=== PATIENT | male | born 1945 | race Caucasian/White ===

== ENCOUNTER 2017-08-26 09:05 | Emergency (ER) | payer MEDICARE ==
--- NOTE | 2017-08-26 09:19 | UC ---
Respiratory Complaint HPI - HPI Summary HPI Summary: 71 y/o male presents to the urgent care c/o chest congestion with productive cough with green secretions for the past 2 weeks. Pt states cough is associated with SOB and wheezing, using the albuterol inhaler morefor the past 2 days. Mild nasal congestion with yellowish nasal discharge. SOB is wore exertion. Pt has been taking a OTC cough syrup to alleviate cough. Pt had open heart surgery in 2014. He also has PMHX of COPD, HTN, Dyslipidemia. Pt denies fever, chest pain, abdominal pain, N/V/D. - History of Current Complaint Stated Complaint: COUGH Time Seen by Provider: 08/26/17 09:18 Hx Obtained From: Patient Onset/Duration: Gradual Onset, Lasting Weeks - 2 weeks Timing: Constant Severity Initially: Mild Severity Currently: Moderate Pain Intensity: 0 Pain Scale Used: 0-10 Numeric Character: Cough: Productive, Sputum Description: - green Aggravating Factors: Deep Breaths, Recumbent Position Alleviating Factors: Bronchodilator Associated Signs And Symptoms: Positive: Dyspnea, URI, Nasal Congestion. Negative: Fever, Pleuritic Chest Pain, Wheezing, Calf Pain - Risk Factors Pulmonary Embolism Risk Factors: Negative Cardiac Risk Factors: Negative Pseudomonas Risk Factors: Negative Tuberculosis Risk Factors: Negative - Allergies/Home Medications Allergies/Adverse Reactions: Allergies Allergy/AdvReac Type Severity Reaction Status Date / Time No Known Allergies Allergy Verified 08/26/17 09:24 PMH/Surg Hx/FS Hx/Imm Hx Previously Healthy: Yes Endocrine History: Hypothyroidism, Dyslipidemia Cardiovascular History: Cardiac Disease, Hypertension Other History Of: Negative For: Anticoagulant Therapy - Surgical History Surgical History: Yes Surgery Procedure, Year, and Place: open heart - Family History Known Family History: Positive: Cardiac Disease, Hypertension - Social History Occupation: Retired Alcohol Use: None Substance Use Type: None Smoking Status (MU): Former Smoker Type: Cigarettes, Cigars Amount Used/How Often: 5 cigars/day Length of Time of Smoking/Using Tobacco: On and Off for 32 Years Have You Smoked in the Last Year: No When Did the Patient Quit Smoking/Using Tobacco: 09/26/90 Household Exposure Type: Cigarettes - Immunization History Most Recent Influenza Vaccination: 2012 Most Recent Tetanus Shot: 2005 Most Recent Pneumonia Vaccination: never Review of Systems Constitutional: Negative Skin: Negative Eyes: Negative ENT: Nasal Discharge Respiratory: Shortness Of Breath, Cough - productive with green phlegm Cardiovascular: Negative Gastrointestinal: Negative Genitourinary: Negative Motor: Negative Neurovascular: Negative Musculoskeletal: Negative Neurological: Negative Psychological: Negative Is Patient Immunocompromised?: No All Other Systems Reviewed And Are Negative: Yes Physical Exam Triage Information Reviewed: Yes - Additional Comments Vital Signs Reviewed: Yes General: well developed, well nourished obese male sitting in the examining table w/o any apparent distress Eyes: Positive: Conjunctiva Clear - PERRLA, EOMI, fundi grossly normal ENT: Positive: Normal ENT inspection, Hearing grossly normal, Pharynx normal, Nasal congestion - edematous and erythematous nasal mucosa, Nasal drainage - yellowish drainage, TMs normal. Negative: Tonsillar swelling, Tonsillar exudate Neck: Positive: Supple, Nontender, No Lymphadenopathy Respiratory: no orthopnea or dyspnea. Able to speak in full sentences, no retractions or accessory muscle use, no tripod position, stridor, or head bobbing. B/L lungs with scattered crackles and rhonchi, audible gurgles, decrease breath sounds. Cardiovascular: Positive: RRR, No Murmur, Pulses Normal, Brisk Capillary Refill Abdomen Description: Positive: Nontender, No Organomegaly, Soft. Negative: CVA Tenderness (R), CVA Tenderness (L) Bowel Sounds: Positive: Present Musculoskeletal Exam: Normal Musculoskeletal: Positive: Strength Intact, ROM Intact, No Edema Neurological Exam: Normal Psychological Exam: Normal Skin Exam: Normal Respiratory Course/Dx - Course Course Of Treatment: 71 y/o male presents to the urgent care c/o chest congestion with productive cough with green secretions for the past 2 weeks. Pt states cough is associated with SOB and wheezing, using the albuterol inhaler morefor the past 2 days. Mild nasal congestion with yellowish nasal discharge. SOB is wore exertion. Pt has been taking a OTC cough syrup to alleviate cough. Pt had open heart surgery in 2015. He also has PMHX of COPD, HTN, Dyslipidemia. Pt denies fever, chest pain, abdominal pain, N/V/D. Hx obtained. Pt with B/L lung with moderate crackles and audible gurgles, and decrease breath sounds on examination. O2Sat: 90%. Chest X-ray ordered to r/o pheumonia or CHF exacerbation. Impression: Left lower lung with consolidtion and small pleural effusion. However further images should be ordered and blood work in order to differentiate between acute CHF exacerbation or pneumonia. I presented case to Dr Nunez. she recommended Pt to go to the ER. I discussed chest X-ray findings with the patient. Patient was instructed to go to the ER for further evaluation and treatment to r/o CHF acute exacerbation. Pt Understood and agreed. stated she will take her to the [facility]. I spoke to addi Burkett ant [facility] and discussed Pt's case with her. She accepted the PT. Pt left the clinic ambulating and hemodyncamically stable, A& OX3. - Differential Dx/Diagnosis Differential Diagnosis/HQI/PQRI: Asthma, Bronchitis, Exacerbation Of COPD, Lower Resp Infection, Other - pneumonia, CHF, OHS Provider Diagnoses: 1- persitent cough with SOB r/o pneumonia. 2- Left lower lung with Pleural effusion r/o CHF - Physician Notification/Consults Discussed Patient Care With: Sonal Nunez - DR Nunez agreed with Pt 's plan of care Discharge - Discharge Plan Condition: Stable Disposition: [facility] Patient Education Materials: Heart Failure (ED), Pneumonia (ED) Referrals: Sumaya Gallo MD [Primary Care Provider] - Additional Instructions: I highly recommend you to go to the [place] ER for further evaluation and treatment to r/o CHF, pneumonia or other cardiology pathology. The risks of not goint to the ER can be ND or
[2017-08-26 09:31] VITALS: BP 148/58
--- NOTE | 2017-08-26 10:15 | RAD ---
HISTORY: Persistent cough, shortness of breath COMPARISONS: June 28, 2016 VIEWS: 4: Frontal dual-energy and lateral views of the chest. FINDINGS: CARDIOMEDIASTINAL SILHOUETTE: The cardiomediastinal silhouette is normal. A prosthesis is noted overlying the atrial appendage. A prosthetic heart valve is noted. MANUEL: The manuel are normal. PLEURA: There is blunting of left costophrenic angle. LUNG PARENCHYMA: There is patchy alveolar opacification of the left lung base ABDOMEN: The upper abdomen is clear. There is no subphrenic gas. BONES AND SOFT TISSUES: The patient is status post median sternotomy. OTHER: None. IMPRESSION: LEFT LOWER LUNG CONSOLIDATION WITH A SMALL LEFT PLEURAL EFFUSION. RECOMMEND FOLLOW-UP UNTIL RESOLUTION TO EXCLUDE UNDERLYING PULMONARY PARENCHYMAL PATHOLOGY.
== END 2017-08-26 10:43 | disposition short-term general hospital (02) ==
LOC: UCCORT 09:05
DX: R05 Cough (principal); R06.02 Shortness of breath; J90 Pleural effusion, not elsewhere classified; E03.9 Hypothyroidism, unspecified; E78.5 Hyperlipidemia, unspecified; J44.9 Chronic obstructive pulmonary disease, unspecified; I10 Essential (primary) hypertension; Z87.891 Personal history of nicotine dependence
CPT/HCPCS: 71020; 99212; G0463

== ENCOUNTER 2017-08-26 11:36 | Emergency (ER) | payer MEDICARE ==
[2017-08-26] MEDS ORDERED: cefTRIAXone(*) 1 GM in NS 0.9% 50 ML* 50 ML IVPB ONE (12:26)
[2017-08-26] MEDS ORDERED: Levofloxacin 750 MG IVPREMIX(* 750 MG/150 ML BAG IVPB ONE (12:26)
[2017-08-26 12:34] LABS: Hematocrit 42 % (42-52); Hemoglobin 13.5 g/dl (14.0-18.0); Mean Corpuscular HGB Conc 32 g/dl (31-36); Mean Corpuscular Hemoglobin 30 pg (27-31); Mean Corpuscular Volume 92 fL (80-94); Mean Platelet Volume 9 um3 (7.4-10.4); Red Blood Count 4.55 10^6/ul (4.0-5.4); Red Cell Distribution Width 17 % (10.5-15); White Blood Count 7.7 10^3/ul (3.5-10.8)
[2017-08-26 12:44] LABS: Albumin 4.4 g/dL (3.2-5.2); BUN/Creatinine Ratio 16.7 (8-20); Calcium 10.3 mg/dL (8.6-10.3); EGFR African American 106.4 (>60); EGFR Non-African American 82.7 (>60); Globulin 2.6 g/dL (2-4); Total Bilirubin 0.7 mg/dL (0.2-1.0)
[2017-08-26] MEDS ORDERED: Albuterol 2.5 MG/3 ML NEB.SOL* (0.083%) INH ONE (13:00)
[2017-08-26] MEDS ORDERED: methylPREDNISolone 125 MG* 2 ML VIAL IV ONE (13:04)
[2017-08-26 13:32] LABS: C Reactive Protein 49.18 mg/L (< 5.00)
--- NOTE | 2017-08-26 13:54 | PN ---
Hospitalist Progress Note Brief Hospitalist Consult: Full dictation to follow. In brief, Pt is a 71 y/o M hx of tobacco abuse, presumed COPD, JENNIFER, HTN, HLD here with 2-3 day hx of cough found to have left lower lobe consolidation on CXR. Denies fevers, chills. Went to convenient care to get antibiotics. Denies SOB and states he is always SOB with ambulation. Vital Signs Temp Pulse Resp BP Pulse Ox 98.4 F 60 18 160/76 93 08/26/17 11:41 08/26/17 13:38 08/26/17 13:38 08/26/17 11:41 08/26/17 13:38 Lungs: Coarse with audible exp wheeze Heart; RRR Abd: soft, NT, ND Ext: 1-2+ edema, BAIN Neuro: AOx3 A/P LLL consolidation/PNA with underlying COPD Patient satting 93 % on room air (suspect baseline) without tachycardia/ leukocytosis Pt stable to be discharged home with the following regimen Zithromax Short prednisone taper Jessica Plunkett (CM will arrange nebulizer) PRN Albuterol. D/w patient with and they are in agreement. F/u with PCP in 5-7 days. D/W Dr Mari who is in agreement with the plan stated above.
--- NOTE | 2017-08-26 14:48 | ED ---
Jonas Stanford Nilda, scribed for Pilo Cox MD on 08/26/17 at 1236 . Respiratory - HPI Summary HPI Summary: This patient is a 71 year old M presenting from [facility] to [facility] accompanied by with a chief complaint of constant productive cough (yellow) for the past 1.5 weeks that worsened 2-3 days ago. The patient rates the pain 0/10 in severity. Symptoms aggravated by exertion and alleviated by nothing. Patient reports MARION, but denies fever, chills, and CP. He is not on blood thinners. He states he has "fluid in his lungs". PMHx includes HTN and HLD. No PMHx PNA. PSHx aortic valve replacement. - History of Current Complaint Chief Complaint: EDShortnessOfBreath Stated Complaint: POSSBILE PNEUMONIA COMING FROM Time Seen by Provider: 08/26/17 12:13 Hx Obtained From: Patient Onset/Duration: Gradual Onset, Lasting Weeks, Still Present Current Severity: Moderate Pain Intensity: 0 Character: Cough (Productive), Dyspnea on Exertion Sputum Color: Yellow Aggravating Factor(s): Exertion Alleviating Factor(s): Nothing - Allergy/Home Medications Allergies/Adverse Reactions: Allergies Allergy/AdvReac Type Severity Reaction Status Date / Time No Known Allergies Allergy Verified 08/26/17 09:24 Home Medications: Home Medications Diltiazem CD CAP* [Cardizem CD CAP*] 240 mg PO QAM 08/26/17 [History Confirmed 08/26/17] Levothyroxine TAB* [Synthroid 88 MCG TAB*] 88 mcg PO QAM 08/26/17 [History Confirmed 08/26/17] Lisinopril TAB* [Prinivil TAB 10 MG*] 20 mg PO QAM 08/26/17 [History Confirmed 08/26/17] PMH/Surg Hx/FS Hx/Imm Hx Endocrine/Hematology History: Reports: Hx Thyroid Disease Denies: Hx Anticoagulant Therapy, Hx Blood Disorders, Hx Anemia, Hx Unexplained Bleeding Cardiovascular History: Reports: Hx Hypercholesterolemia, Hx Hypertension, Other Cardiovascular Problems/Disorders - AORTIC VALVE REPLACEMENT AT [facility] LATE 2014 Denies: Hx Angina, Hx Angioplasty, Hx Auto Implanted Cardiovert Defib, Hx Cardiomegaly, Hx Congestive Heart Failure, Hx Coronary Artery Disease, Hx Deep Vein Thrombosis, Hx Pacemaker/ICD, Hx Rheumatic Fever, Hx Syncope Respiratory History: Reports: Hx Sleep Apnea History: Reports: Hx Benign Prostatic Hyperplasia Denies: Hx Acute Renal Failure, Hx Chronic Renal Failure, Hx Dialysis, Hx Kidney Infection, Hx Kidney Stones Sensory History: Reports: Hx Cataracts - surgery on right eye, Hx Contacts or Glasses, Hx Hearing Problem - little MILLE LACS Denies: Hx Glaucoma, Hx Macular Degeneration, Hx Hearing Aid Opthamlomology History: Reports: Hx Cataracts - surgery on right eye, Hx Contacts or Glasses Denies: Hx Glaucoma, Hx Macular Degeneration - Cancer History Cancer Type, Location and Year: 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 Hx Chemotherapy: No Hx Radiation Therapy: Yes - Surgical History Surgery Procedure, Year, and Place: open heart Hx Anesthesia Reactions: No Infectious Disease History: No Infectious Disease History: Denies: Traveled Outside the [place] in Last 30 Days - Family History Known Family History: Positive: Cardiac Disease, Hypertension - Social History Lives: With Family Alcohol Use: Occasionally Substance Use Type: Reports: None Smoking Status (MU): Former Smoker Type: Cigarettes, Cigars Amount Used/How Often: 5 cigars/day Length of Time of Smoking/Using Tobacco: On and Off for 32 Years Have You Smoked in the Last Year: No Review of Systems Negative: Fever, Chills Negative: Chest Pain Positive: Shortness Of Breath - MARION, Cough - productive, yellow, Other - "fluid in lungs" All Other Systems Reviewed And Are Negative: Yes Physical Exam Vital Signs On Initial Exam: Initial Vitals Temp Pulse Resp BP Pulse Ox 98.4 F 67 22 160/76 97 08/26/17 11:41 08/26/17 11:41 08/26/17 11:41 08/26/17 11:41 08/26/17 11:41 - [place] Coma Scale Coma Scale Total: 15 Diagnostics - Vital Signs Vital Signs Temp Pulse Resp BP Pulse Ox 08/26/17 12:08 65 94 08/26/17 11:41 98.4 F 67 22 160/76 97 - Laboratory Lab Results: Lab Results 08/26/17 08/26/17 08/26/17 Range/Units 11:56 11:56 11:56 WBC 7.7 (3.5-10.8) 10^3/ul RBC 4.55 (4.0-5.4) 10^6/ul Hgb 13.5 L (14.0-18.0) g/dl Hct 42 (42-52) % MCV 92 (80-94) fL MCH 30 (27-31) pg MCHC 32 (31-36) g/dl RDW 17 H (10.5-15) % Plt Count 164 (150-450) 10^3/ul MPV 9 (7.4-10.4) um3 Neut % (Auto) 54.5 (38-83) % Lymph % (Auto) 18.8 L (25-47) % Scott % (Auto) 18.6 H (1-9) % Eos % (Auto) 6.8 H (0-6) % Baso % (Auto) 1.3 (0-2) % Absolute Neuts (auto) 4.2 (1.5-7.7) 10^3/ul Absolute Lymphs (auto) 1.4 (1.0-4.8) 10^3/ul Absolute Monos (auto) 1.4 H (0-0.8) 10^3/ul Absolute Eos (auto) 0.5 (0-0.6) 10^3/ul Absolute Basos (auto) 0.1 (0-0.2) 10^3/ul Absolute Nucleated RBC 0 10^3/ul Nucleated RBC % 0 Sodium 140 (133-145) mmol/L Potassium 4.0 (3.5-5.0) mmol/L Chloride 104 (101-111) mmol/L Carbon Dioxide 31 (22-32) mmol/L Anion Gap 5 (2-11) mmol/L BUN 15 (6-24) mg/dL Creatinine 0.90 (0.67-1.17) mg/dL Est GFR ( Amer) 106.4 (>60) Est GFR (Non-Af Amer) 82.7 (>60) BUN/Creatinine Ratio 16.7 (8-20) Glucose 94 (70-100) mg/dL Calcium 10.3 (8.6-10.3) mg/dL Total Bilirubin 0.70 (0.2-1.0) mg/dL AST 18 (13-39) U/L ALT 20 (7-52) U/L Alkaline Phosphatase 116 H (34-104) U/L C-Reactive Protein 49.18 H (< 5.00) mg/L B-Natriuretic Peptide 251 H ( - 100) pg/mL Total Protein 7.0 (6.4-8.9) g/dL Albumin 4.4 (3.2-5.2) g/dL Globulin 2.6 (2-4) g/dL Albumin/Globulin Ratio 1.7 (1-3) Result Diagrams: 08/26/17 11:56 08/26/17 11:56 Lab Statement: Any lab studies that have been ordered have been reviewed, and results considered in the medical decision making process. - EKG 1245 Cardiac Rate: NL EKG Rhythm: Sinus Rhythm - 62 bpm EKG Interpretation: NJ 128, QRS 109, No STEMI Disposition - Course Course Of Treatment: This patient is a 71 year old M presenting from [facility] to [facility] accompanied by with a chief complaint of constant productive cough ( yellow) for the past 1.5 weeks that worsened 2-3 days ago. The patient rates the pain 0/10 in severity. Symptoms aggravated by exertion and alleviated by nothing. Patient reports MARION, but denies fever, chills, and CP. He is not on blood thinners. He states he has fluid in his lungs. PMHx includes HTN and HLD. No PMHx PNA. PSHx aortic valve replacement. The patient states he feels totally comfortable with going home on the home treatment plan the hospitalists have organized, and he does not want to stay here and be admitted. His sat is 92-93 on room air. He has clearer lungs sounds after his neb. Discharge plan per hospitalists. An EKG reveals NSR 62 bpm, NJ 128, QRS 109, No STEMI. [12:59 ] consult with Dr. Mari (hospitalist) who will see pt in ED. [13:38] consult with Dr. Mari (hospitalist) who recommends that the patient be discharged and agrees to place prescription for antibiotics and breathing treatment. ED physcician administered albuterol, levofloxacin, methylprednisone, and ceftriaxone inhalation treatments in ED. - Diagnoses Provider Diagnoses: Pneumonia, Pleural effusion - Physician Notifications Discussed Care Of Patient With: Adeola Mari - Hospitalist Time Discussed With Above Provider: 12:59 Instructed by Provider To: MD Will See In ED Discharge - Discharge Plan Condition: Good Disposition: HOME Prescriptions: Albuterol/Ipratropium NEB.GUNNAR* [Duoneb (Albuterol 2.5 MG/Ipratropium 0.5 MG)] 1 neb INH Q4HR #30 neb.gunnar Amoxicillin/Clavulanate TAB* [Augmentin TAB 875*] 875 mg PO BID #20 tab Azithromycin TAB* [Zithromax TAB (Z-LONA) 250 mg #6 tabs] 2 tab PO .TODAY, THEN 1 DAILY #1 lona Mometasone/Formoter 200/5 MDI* [Dulera 200/5 MDI*] 1 puff INH BID #1 mdi predniSONE TAB* [Deltasone TAB*] 20 mg PO DAILY #14 tab Patient Education Materials: Bacterial Pneumonia (ED), COPD (Chronic Obstructive Pulmonary Disease) (ED), Hypertension (ED) Referrals: Sumaya Gallo MD [Primary Care Provider] - 2 Days The documentation as recorded by the Jonas smith Nilda accurately reflects the service I personally performed and the decisions made by , Pilo Cox MD.
[2017-08-26 15:53] VITALS: BP 191/74
--- NOTE | 2017-08-26 18:44 | CONS ---
CONSULTATION REPORT: * ADDENDUM: Ha Raman is a 71-year-old male with BMI of 42, who presented to [facility] complaining of cough and "having a cold." His x-ray shows chronic left-sided pleural effusion with questionable infiltrate at left base. The patient had a CT of the chest performed in the beginning of August of 2017 , which was just less than 2 weeks ago, which noted the same pleural effusion and compared, is unchanged with a CT from [address]. [address]. Cox asked us to evaluate the patient for potential admission. When approached, the patient refused to be admitted. He has audible wheezes. He likely has bronchitis. Recommending treatment with inhaled steroid, beta ___ __ combination as well as nebulizers and azithromycin. Those were recommended by Debra Velasquez NP, with outpatient consultation with which I agree. [id number]/[facility] #: [id number] CHRISTIAN
--- NOTE | 2017-08-26 19:51 | CONS ---
ATTENDING PHYSICIAN ADDENDUM NOW INCLUDED ON THIS REPORT CC: Sumaya Gallo MD* CONSULTATION REPORT: DATE OF CONSULTATION: 08/26/17 - EMERGENCY DEPT PRIMARY CARE PROVIDER: Sumaya Gallo MD. REQUESTING PHYSICIAN: Pilo Cox MD. ATTENDING PHYSICIAN: Adeola Mari MD * (DICTATED BY BRAYDON OLSON) CHIEF COMPLAINT: Cough. HISTORY OF PRESENT ILLNESS: The patient is a 71-year-old male with a past medical history significant for obstructive sleep apnea, morbid obesity, hypertension who initially presented to [facility] care with a complaint of cough for the past 1-1/2 to 2 weeks. The patient denies any fever or chills. The patient states he is always short of breath and his shortness of breath has not gotten any worse. The patient was traveling to [place] approximately 2 weeks ago. Today, the patient presented to [facility] as he figured he would "just stop by to pickling grader some antibiotics." At [facility], he had a chest x-ray that revealed left lower lobe consolidation and was sent to [facility] Emergency Room for further evaluation and possible admission. In the emergency room, the patient was satting between 93% and 97% on room air. He was given a dose of ceftriaxone and Levaquin as well as a nebulizer. Hospitalists were asked to evaluate this patient for admission. PAST MEDICAL HISTORY: 1. Hypertension. 2. Prostate cancer. 3. Obstructive sleep apnea, on CPAP with 2 L oxygen at night. 4. Hyperlipidemia. PAST SURGICAL HISTORY: Aortic valve replacement in 2014. HOME MEDICATIONS: Include: 1. Synthroid 88 mcg oral daily. 2. Lisinopril 20 mg oral daily. 3. Cardizem 240 mg oral daily. 4. Albuterol inhaler. ALLERGIES: None. FAMILY HISTORY: Reviewed and noncontributory. SOCIAL HISTORY: The patient quit smoking 30 years ago. He smoked 2 to 3 cigars a day. He occasionally drinks alcohol. He is not working. His , Michelle Raman, would be the surrogate decision maker in the event the patient cannot make decisions for himself. REVIEW OF SYSTEMS: I performed a 14-point review of systems; all the pertinent positives and negatives are mentioned in the history of present illness. The remaining review of systems are negative. PHYSICAL EXAM: Vital Signs: Temperature 98.4, heart rate 60, respiratory rate 18, oxygen saturation 92%, blood pressure 160/76. Appearance: The patient is alert, appeared to be in no apparent distress. Head, Eyes, Ears, Nose and Throat: Normocephalic/atraumatic. Pupils were equal and reactive to light. Extraocular movements were intact. Neck: Supple. There was no lymphadenopathy noted. Respiratory: There was no accessory muscle use. Lungs were coarse bilaterally with slight expiratory wheeze. Cardiovascular: S1 and S2 were crisp. There were no murmurs, rubs, or gallops. Abdomen was soft, nontender and nondistended. There were bowel sounds x4. Extremities: There was 1 to 2+ lower extremity edema. DP and PT pulses were 2+ and symmetric. Musculoskeletal: There was no clubbing or cyanosis noted. The patient exhibited equal strength in all extremities. Skin: There were no rashes or abnormalities seen. Neuro: Cranial nerves II through XII are intact. The patient moves all extremities. Lower extremities were intact to light touch. Psych: The patient is alert and oriented x3. LABORATORY DATA: Sodium 140, potassium 4, chloride 104, CO2 31, BUN 15, creatinine 0.9, glucose 94. Liver function test is within normal limits. Alk phos 116, CRP 49.8, BNP 251. White blood cell count 7.7, hemoglobin 13.5, hematocrit 42, platelet count 164,000. IMAGING: Chest x-ray from today at [facility] reads left lower lung consolidation with small left lower lobe effusion. Recommend followup until resolution to exclude underlying pulmonary parenchymal pathology. The patient also had a chest CT from 08/15/17 that showed a chronic small left pleural effusion. EKG from this morning showed normal sinus rhythm with a rate of 62. IMPRESSION: This is a 71-year-old male with past medical history significant for prior tobacco abuse, hypertension, morbid obesity, hyperlipidemia, who presented to [facility] with a complaint of cough, found to have left lower lobe consolidation consistent with pneumonia with underlying chronic obstructive pulmonary disease. ASSESSMENT AND PLAN: 1. Left lower lobe consolidation with underlying chronic obstructive pulmonary disease. Although the patient does not have a diagnosis of chronic obstructive pulmonary disease given his history of tobacco abuse, he likely warrants the diagnosis. On top of this, it is clear that the patient has left lower lobe consolidation typical of early pneumonia or bronchitis. The patient is currently receiving ceftriaxone and Levaquin in the emergency room. The patient is satting 90% on room air and is not tachycardic and does not have a white count. Hence, at this time, he does not meet criteria for admission. He will be discharged with a course of Zithromax as well as a short prednisone taper. In addition, the patient will be set up with a nebulizer for breathing treatments and Dulera. He currently has an albuterol inhaler at home and should continue to use this as a rescue inhaler. The patient was instructed to follow up with his primary care provider, Dr. Gallo, within 5 to 7 days. In addition , it is likely that the patient may be need an evaluation by a gas distribution and emergency clerk. 2. For his obstructive sleep apnea, the patient can continue CPAP at home. 3. Hypertension. Blood pressure is controlled on his current regimen of Cardizem and lisinopril. 4. Hypothyroidism. Continue Synthroid. These recommendations were conveyed in detail to the emergency room physician who will be discharging the patient from the emergency room today. This is a summarized report of the complex medical history. Please refer to medical record for further detail. TIME SPENT: Time for this consultation was 60 minutes, and 30 minutes were spent with the patient discussing medications, medical history and events leading up to his arrival in the emergency room. Case was discussed with the attending physician, Dr. Mari and she is in agreement with the plan outlined above. Reveiwed by DEBRA VELASQUEZ NP 08/27/2017 1969 ADDENDUM: Ha Raman is a 71-year-old male with BMI of 42, who presented to [facility] complaining of cough and "having a cold." His x-ray shows chronic left-sided pleural effusion with questionable infiltrate at left base. The patient had a CT of the chest performed in the beginning of August of 2017 , which was just less than 2 weeks ago, which noted the same pleural effusion and compared, is unchanged with a CT from 2016. Dr. Cox asked us to evaluate the patient for potential admission. When approached, the patient refused to be admitted. He has audible wheezes. He likely has bronchitis. Recommending treatment with inhaled steroid, beta ___ __ combination as well as nebulizers and azithromycin. Those were recommended by Debra Velasquez NP, with outpatient consultation with which I agree. ADEOLA MARI, [place] [id number]/CPS #: [id number]/CPS #: [id number] [facility]
== END 2017-08-26 15:55 | disposition home or self-care (01) ==
LOC: ED 11:36
DX: J18.9 Pneumonia, unspecified organism (principal); J90 Pleural effusion, not elsewhere classified; R06.02 Shortness of breath; R05 Cough; Z87.891 Personal history of nicotine dependence
CPT/HCPCS: 36415; 80053; 83880; 84145; 85025; 86140; 87040; 93005; 94640; 99283; J0696; J2930

== ENCOUNTER 2019-04-12 18:08 | Emergency (ER) | payer MEDICARE ==
--- NOTE | 2019-04-12 18:39 | ED ---
Shortness of Breath - HPI Summary HPI Summary: 73 yr old male with the complaint of shortness of breath and coughing. Onset of symptoms about a week ago, and progressively worse. The patient has no chest pain. Denies fever. He has had decreased tolerance of walking. He has been wearing oxygen all day, which he usually only wears at night. He denies increased swelling in the legs. He has no other complaints. - History of Current Complaint Time Seen by Provider: 04/12/19 18:20 - Allergy/Home Medications Allergies/Adverse Reactions: Allergies Allergy/AdvReac Type Severity Reaction Status Date / Time No Known Allergies Allergy Verified 04/12/19 18:35 Home Medications: Home Medications Furosemide TAB* [Lasix TAB*] 40 mg PO DAILY 04/12/19 [History Confirmed 04/12/19 ] Metoprolol Tartrate TAB* [Lopressor TAB*] 25 mg PO DAILY 04/12/19 [History Confirmed 04/12/19] Warfarin TAB(*) [Coumadin TAB(*)] 5 mg PO DAILY 04/12/19 [History Confirmed ] PMH/Surg Hx/FS Hx/Imm Hx Endocrine/Hematology History: Reports: Hx Thyroid Disease Denies: Hx Anticoagulant Therapy, Hx Blood Disorders, Hx Anemia, Hx Unexplained Bleeding Cardiovascular History: Reports: Hx Hypercholesterolemia, Hx Hypertension, Other Cardiovascular Problems/Disorders - AORTIC VALVE REPLACEMENT AT [facility] LATE 2014 Denies: Hx Angina, Hx Angioplasty, Hx Auto Implanted Cardiovert Defib, Hx Cardiomegaly, Hx Congestive Heart Failure, Hx Coronary Artery Disease, Hx Deep Vein Thrombosis, Hx Pacemaker/ICD, Hx Rheumatic Fever, Hx Syncope Respiratory History: Reports: Hx Chronic Obstructive Pulmonary Disease (COPD) - undiagnosed, Hx Sleep Apnea History: Reports: Hx Benign Prostatic Hyperplasia Denies: Hx Acute Renal Failure, Hx Chronic Renal Failure, Hx Dialysis, Hx Kidney Infection, Hx Kidney Stones Sensory History: Reports: Hx Cataracts - surgery on right eye, Hx Contacts or Glasses, Hx Hearing Problem - little [place] Denies: Hx Glaucoma, Hx Macular Degeneration, Hx Hearing Aid Opthamlomology History: Reports: Hx Cataracts - surgery on right eye, Hx Contacts or Glasses Denies: Hx Glaucoma, Hx Macular Degeneration - Cancer History Cancer Type, Location and Year: 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 Hx Chemotherapy: No Hx Radiation Therapy: Yes - Surgical History Surgery Procedure, Year, and Place: open heart, VALVE REPLACED Hx Anesthesia Reactions: No Infectious Disease History: Denies: Traveled Outside the [place] in Last 30 Days - N - Family History Known Family History: Positive: Cardiac Disease, Hypertension - Social History Alcohol Use: Occasionally Substance Use Type: Reports: None Smoking Status (MU): Former Smoker Type: Cigarettes, Cigars Amount Used/How Often: 5 cigars/day Length of Time of Smoking/Using Tobacco: On and Off for 32 Years Have You Smoked in the Last Year: No Review of Systems Positive: Fever, Chills Positive: Cough All Other Systems Reviewed And Are Negative: Yes Physical Exam Triage Information Reviewed: Yes Vital Signs Reviewed: Yes Appearance: Positive: Well-Appearing, No Pain Distress Skin: Positive: Warm, Skin Color Reflects Adequate Perfusion Head/Face: Positive: Normal Head/Face Inspection Eyes: Positive: EOMI, MARY ENT: Negative: Nasal congestion, Nasal drainage Neck: Positive: Nontender Respiratory/Lung Sounds: Positive: Clear to Auscultation, Breath Sounds Present Cardiovascular: Positive: RRR. Negative: Murmur Abdomen Description: Positive: Nontender Musculoskeletal: Positive: Strength/ROM Intact, Edema Left, Edema Right Neurological: Positive: Sensory/Motor Intact, Alert, Oriented to Person Place, Time, CN Intact II-III Diagnostics - Laboratory Lab Statement: Any lab studies that have been ordered have been reviewed, and results considered in the medical decision making process. - EKG 04/12/2019 Cardiac Rate: NL EKG Rhythm: Atrial Fibrillation ST Segment: Normal Ectopy: None Course/Dx - Course Course Of Treatment: 73 yr old with shortness of breath. He signed out AMA. He verbalized that his wifewill drive him to [place]. - Diagnoses Provider Diagnoses: Shortness of breath, Atrial fibrillation Discharge - Sign-Out/Discharge Documenting (check all that apply): Patient Departure All imaging exams completed and their final reports reviewed: No Studies - Discharge Plan Condition: Fair Disposition: AGAINST MEDICAL ADVICE Patient Education Materials: Shortness of Breath (ED) Referrals: Sumaya Gallo MD [Primary Care Provider] - - Billing Disposition and Condition Condition: FAIR Disposition: Against Medical Advice
[2019-04-12 18:45] VITALS: BP 119/50
== END 2019-04-12 18:46 | disposition left against medical advice (07) ==
LOC: UCCORT 18:08
DX: R06.02 Shortness of breath (principal); I48.91 Unspecified atrial fibrillation; Z79.01 Long term (current) use of anticoagulants; I10 Essential (primary) hypertension; Z95.2 Presence of prosthetic heart valve; Z87.891 Personal history of nicotine dependence
CPT/HCPCS: 99212; G0463

== ENCOUNTER 2019-04-12 19:36 | Inpatient (IN) | payer MEDICARE ==
[2019-04-12 21:05] LABS: ABS Basophils 0.1 10^3/ul (0-0.2); ABS Eosinophils 0.5 10^3/ul (0-0.6); ABS Lymphocytes 1.2 10^3/ul (1.0-4.8); ABS Neutrophils 6.6 10^3/ul (1.5-7.7); Eosinophil % 5.2 %; Hematocrit 36 % (42-52); Hemoglobin 11.6 g/dL (14.0-18.0); Mean Corpuscular HGB Conc 32 g/dL (31-36); Mean Corpuscular Hemoglobin 31 pg (27-31); Mean Corpuscular Volume 95 fL (80-94); Mean Platelet Volume 8.6 fL (7.4-10.4); Nucleated Red Blood Cells % 0.1; Platelet Count 147 10^3/uL (150-450); Red Blood Count 3.77 10^6 /uL (4.18-5.48); Red Cell Distribution Width 19 % (10-15); White Blood Count 9.4 10^3/uL (3.5-10.8)
[2019-04-12 21:12] LABS: Activated Partial Thrombo Time 47.3 seconds (26.0-38.0); INR 2.32 (0.82-1.09)
--- NOTE | 2019-04-12 21:19 | ED ---
Shortness of Breath - HPI Summary HPI Summary: This patient is a 73 year old M presenting to ED with a chief complaint of SOB since yesterday. Patient reports having difficulty breathing while walking. He has had a cold for a week and a half, but the SOB started yesterday. He typically uses 2L O2 at night, but has used it all day today. He has had fluid in the left lung before. The patient rates the pain 0/10 in severity. Symptoms aggravated by nothing. Symptoms alleviated by nothing. Patient reports productive cough, ulcer on right lower extremity since two weeks ago. Patient denies fever, abdominal pain. PMHx of COPD but no DM. - History of Current Complaint Chief Complaint: EDShortnessOfBreath Time Seen by Provider: 04/12/19 21:09 Hx Obtained From: Patient Onset/Duration: Lasting Weeks - Cold since a week ago, Still Present, Worse Since - SOB yesterday Timing: Constant Dyspnea At: Exertion Aggravating Factors: Nothing Alleviating Factors: Nothing Associated Signs & Symptoms: Negative - Fever, abdominal pain, chronic ulcer on RLE, Cough (Productive) - Allergy/Home Medications Allergies/Adverse Reactions: Allergies Allergy/AdvReac Type Severity Reaction Status Date / Time No Known Allergies Allergy Verified 04/12/19 19:41 PMH/Surg Hx/FS Hx/Imm Hx Previously Healthy: No Endocrine/Hematology History: Reports: Hx Thyroid Disease Denies: Hx Anticoagulant Therapy, Hx Blood Disorders, Hx Diabetes, Hx Anemia , Hx Unexplained Bleeding Cardiovascular History: Reports: Hx Hypercholesterolemia, Hx Hypertension, Other Cardiovascular Problems/Disorders - AORTIC VALVE REPLACEMENT AT [facility] LATE 2014 Denies: Hx Angina, Hx Angioplasty, Hx Auto Implanted Cardiovert Defib, Hx Cardiomegaly, Hx Congestive Heart Failure, Hx Coronary Artery Disease, Hx Deep Vein Thrombosis, Hx Pacemaker/ICD, Hx Rheumatic Fever, Hx Syncope Respiratory History: Reports: Hx Chronic Obstructive Pulmonary Disease (COPD) - undiagnosed, Hx Sleep Apnea History: Reports: Hx Benign Prostatic Hyperplasia Denies: Hx Acute Renal Failure, Hx Chronic Renal Failure, Hx Dialysis, Hx Kidney Infection, Hx Kidney Stones Sensory History: Reports: Hx Cataracts - surgery on right eye, Hx Contacts or Glasses, Hx Hearing Problem - little [place] Denies: Hx Glaucoma, Hx Macular Degeneration, Hx Hearing Aid Opthamlomology History: Reports: Hx Cataracts - surgery on right eye, Hx Contacts or Glasses Denies: Hx Glaucoma, Hx Macular Degeneration - Cancer History Cancer Type, Location and Year: 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 Hx Chemotherapy: No Hx Radiation Therapy: Yes - Surgical History Surgery Procedure, Year, and Place: open heart, VALVE REPLACED Hx Anesthesia Reactions: No Infectious Disease History: No Infectious Disease History: Denies: Traveled Outside the US in Last 30 Days - Family History Known Family History: Positive: Cardiac Disease, Hypertension - Social History Alcohol Use: Occasionally Hx Substance Use: No Substance Use Type: Reports: None Hx Tobacco Use: Yes Smoking Status (MU): Former Smoker Type: Cigarettes, Cigars Amount Used/How Often: 5 cigars/day Length of Time of Smoking/Using Tobacco: On and Off for 32 Years Have You Smoked in the Last Year: No Review of Systems Negative: Fever Positive: Shortness Of Breath, Cough Negative: Abdominal Pain Skin: Other - Ulcer on RLE All Other Systems Reviewed And Are Negative: Yes Physical Exam - Summary Physical Exam Summary: Appearance: Well appearing, no pain distress Skin: chronic ulcer on RLE Head/face: normal Eyes: EOMI, MARY ENT: normal Neck: supple, non-tender Respiratory: bilateral wheezing and rales Cardiovascular: RRR, pulses symmetrical Abdomen: non-tender, soft Musculoskeletal: normal, strength/ROM intact Neuro: normal, sensory motor intact, A&Ox3 Extremities: bilateral pitting edema Triage Information Reviewed: Yes Vital Signs On Initial Exam: Initial Vitals Temp Pulse Resp BP Pulse Ox 98.9 F 84 18 144/70 89 04/12/19 19:39 04/12/19 19:39 04/12/19 19:39 04/12/19 19:39 04/12/19 19:39 Vital Signs Reviewed: Yes Diagnostics - Vital Signs Vital Signs Temp Pulse Resp BP Pulse Ox 04/12/19 19:39 98.9 F 84 18 144/70 89 - Laboratory Lab Results: Lab Results 04/12/19 04/12/19 Range/Units 20:51 20:51 WBC 9.4 (3.5-10.8) 10^3/uL RBC 3.77 L (4.18-5.48) 10^6 /uL Hgb 11.6 L (14.0-18.0) g/dL Hct 36 L (42-52) % MCV 95 H (80-94) fL MCH 31 (27-31) pg MCHC 32 (31-36) g/dL RDW 19 H (10-15) % Plt Count 147 L (150-450) 10^3/uL MPV 8.6 (7.4-10.4) fL Neut % (Auto) 69.6 % Lymph % (Auto) 13.0 % [place] % (Auto) 10.9 % Eos % (Auto) 5.2 % Baso % (Auto) 1.3 % Absolute Neuts (auto) 6.6 (1.5-7.7) 10^3/ul Absolute Lymphs (auto) 1.2 (1.0-4.8) 10^3/ul Absolute Monos (auto) 1.0 H (0-0.8) 10^3/ul Absolute Eos (auto) 0.5 (0-0.6) 10^3/ul Absolute Basos (auto) 0.1 (0-0.2) 10^3/ul Absolute Nucleated RBC 0.0 10^3/ul Nucleated RBC % 0.1 INR (Anticoag Therapy) 2.32 H (0.82-1.09) APTT 47.3 H (26.0-38.0) seconds Result Diagrams: 04/12/19 20:51 04/12/19 20:51 Lab Statement: Any lab studies that have been ordered have been reviewed, and results considered in the medical decision making process. - Radiology CXR Radiology Interpretation Completed By: ED Physician Summary of Radiographic Findings: CHF, bilateral infiltrates. Pending official radiology report. - EKG 1818 Cardiac Rate: NL - 78 BPM EKG Rhythm: Atrial Fibrillation Summary of EKG Findings: Atrial fibrillation at 78 BPM, no acute changes. Course/Dx - Course Course Of Treatment: This patient is a 73 year old M presenting to ED with a chief complaint of SOB since yesterday. Blood work obtained. EKG at 1818 revealed atrial fibrillation at 78 BPM, no acute changes. CXR revealed CHF and bilateral infiltrates, pending official radiology report. Discussed patient case with Dr. Salazar, hospitalist, who accepted the patient for admission [place] [facility] Patient will be admitted with dx of CHF, COPD exacerbation, and PNA. Patient understands and agrees with this plan. - Diagnoses Differential Diagnosis/HQI/PQRI: Positive: Bronchitis, CHF, COPD Exacerbation, Pneumonia Provider Diagnoses: PNA (pneumonia), COPD exacerbation, CHF (congestive heart failure) - Physician Notifications Discussed Care of Patient With: Salina Salazar Time Discussed With Above Provider: 23:20 Instructed by Provider To: Admit As Inpatient - Discussed patient case with Dr. Salazar, hospitalist, who accepted the patient for admission to [facility] - Critical Care Time Critical Care Time: 30-74 min Discharge - Sign-Out/Discharge Documenting (check all that apply): Patient Departure - Admit Patient Received Moderate/Deep Sedation with Procedure: No - Discharge Plan Condition: Good Disposition: ADMITTED TO [facility] Referrals: Sumaya Gallo MD [Primary Care Provider] - - Billing Disposition and Condition Condition: GOOD Disposition: Admitted to [facility] - Attestation Statements Document Initiated by Scribe: Yes Documenting Scribe: Yanick Taveras Provider For Whom Scribe is Documenting (Include Credential): Jed Howard MD Scribe Attestation: Yanick Stanford, scribed for Jed Howard MD on 04/12/19 at 2352. Scribe Documentation Reviewed: Yes Provider Attestation: The documentation as recorded by the Yanick smith accurately reflects the service I personally performed and the decisions made by , Jed Howard MD Status of Scribe Document: Viewed
[2019-04-12 21:21] LABS: Albumin/Globulin Ratio 1.6 (1-3); BUN/Creatinine Ratio 23.3 (8-20); Calcium 9.7 mg/dL (8.6-10.3); EGFR African American 104.9 (>60); EGFR Non-African American 86.7 (>60); Globulin 2.5 g/dL (2-4); Total Bilirubin 0.6 mg/dL (0.2-1.0); Total Protein 6.5 g/dL (6.4-8.9)
[2019-04-12 21:22] LABS: Troponin I 0.01 ng/mL (<0.04)
[2019-04-12] MEDS ORDERED: methylPREDNISolone 125 MG* 2 ML VIAL IV ONE (21:22)
[2019-04-12] MEDS ORDERED: Albuterol/Ipratropium NEB.SOL* Albuterol 2.5 MG/Ipratropium 0.5 MG 3 ML INH ONE (21:22)
[2019-04-12] MEDS ORDERED: Furosemide IV* 10 MG/ML VIAL (40 MG) IV SLOW PU ONE (21:22)
[2019-04-12] MEDS ORDERED: cefTRIAXone(*) 1 GM in NS 0.9% 50 ML* 50 ML IVPB ONE (21:52)
[2019-04-12] MEDS ORDERED: Azithromycin 500 mg/250 ml NS 500 MG/250 ML BAG IVPB ONE (21:52)
[2019-04-12] MEDS ORDERED: Al Hydrox/Mg Hydrox/Simet LIQ* 30 ML UDC PO PRN (23:53)
[2019-04-12] MEDS ORDERED: Albuterol/Ipratropium NEB.SOL* Albuterol 2.5 MG/Ipratropium 0.5 MG 3 ML INH PRN (23:53)
[2019-04-12] MEDS ORDERED: Acetaminophen TAB* 325 MG PO PRN (23:53)
--- NOTE | 2019-04-13 01:56 | HP ---
HISTORY AND PHYSICAL: ADDENDUM: Mr. Raman is full code and would want to be intubated should it be required. [id number]/CPS #: [id number] [facility]
--- NOTE | 2019-04-13 02:04 | HP ---
ADDENDUM NOW INCLUDED ON THIS REPORT CC: Dr. Gallo * HISTORY AND PHYSICAL: DATE OF ADMISSION: 04/13/19 TIME OF ADMISSION: 12 a.m. CHIEF COMPLAINT: Shortness of breath. HISTORY OF PRESENT ILLNESS: This is a 73-year-old man with a history of COPD, who presented to the emergency department with 1-1/2 weeks of a cold with cough and phlegm. He has not had any fevers, but this morning, his cough was getting worse and he was wheezing, so his made him come to urgent care. From urgent care, he was sent to the emergency department. He denies orthopnea or weight gain. He does complain of dyspnea on exertion. On a good day, he is able to walk about 200 feet, but over the past few days he is barely able to walk around the house without having to stop to catch his breath. He has had no chest pain during this cold. In the emergency department, he received Lasix , ceftriaxone, and azithromycin and he feels much better. His breathing felt comfortable on 2 L. Of note, he is supposed wear 2 L of oxygen when he ambulates and at night, but he refuses to wear it during the day and only wears it at night. However, this past week, he has been wearing it as needed during the day with some relief. PAST MEDICAL HISTORY: Peripheral vascular disease, status post bypass; prostate cancer, status post radiation; chronic hypoxic respiratory failure, on 2 L of O2 nocturnally; JENNIFER on CPAP plus 2 L of oxygen; AFib, on warfarin; COPD. PAST SURGICAL HISTORY: He had an aortic valve replacement with a bovine valve. HOME MEDICATIONS: 1. Albuterol inhaler daily p.r.n. wheezing. 2. DuoNeb q.4 p.r.n. wheezing. 3. Lasix 40 mg daily. 4. Dulera 1 puff b.i.d. 5. Atorvastatin 10 mg q.h.s. 6. Diltiazem 240 mg daily. 7. Levothyroxine 88 mcg daily. 8. Lisinopril 20 mg daily. 9. Metoprolol 25 mg daily. 10. Warfarin 5 mg daily. SOCIAL HISTORY: He is a former smoker. He lives with his , Perla, who he appoints as his healthcare proxy. PHYSICAL EXAMINATION GENERAL: This is an alert, well-appearing man who is in no distress, resting in a stretcher with his at the bedside. He is sitting up in bed, but is able to lay back without shortness of breath. He is able to speak in full sentences. HEENT: Pupils equal, round and reactive to light. Oral mucosa is moist. NECK: He has JVP to 14 cm of water. LUNGS: Coarse rhonchi bilaterally worse at the bases and end-expiratory wheezing. He coughs frequently throughout my exam. CHEST: He is in an irregularly irregular rhythm with an old sternotomy incision. ABDOMEN: Rotund, soft, nontender and nondistended with no CVA tenderness. EXTREMITIES: He has chronic venous stasis changes bilaterally and 2+ pitting edema to the thighs. He has a 3 cm wound on the right avila without surrounding erythema. DIAGNOSTIC STUDIES/LAB DATA: Labs: White blood cells 9.4, hemoglobin 11.6, platelets 147, INR 2.32. ABG: pH 7.45/44/70/29. Sodium 145, potassium 4.0, chloride 107, bicarb 33, BUN 20, creatinine 0.86, glucose 129. Lactic acid 0.9. Chest x-ray, to my read, shows sternotomy clips, cardiomegaly and patchy infiltrates bilaterally in the inferior lobe bilaterally, both costophrenic angles are clear. EKG: AFib. normal axis. Normal QRS. No ST or T-wave changes. ASSESSMENT AND PLAN: This is 73-year-old man with history of chronic obstructive pulmonary disease, atrial fibrillation; and an aortic valve replacement ,who presents to the emergency room department with 1 week of a cough and worsening dyspnea on exertion. 1. Acute hypoxic respiratory failure. I think this is multifactorial, but has primarily been driven by a community acquired pneumonia. I am checking a sputum culture, urine antigens, putting him on ceftriaxone and titrating his O2 needed. I am not giving him any IV fluids because I think he is in decompensated heart failure as well. I also think that his hypoxia may be driven by a chronic obstructive pulmonary disease exacerbation as well, so I am putting him on standing DuoNeb and Solu-Medrol. 2. Acute and chronic diastolic heart failure. He has evidence of volume overload on this exam and felt immediately better in the ED after he received Lasix and urinated 1 L. He has JVP, pulmonary edema, and lower extremity edema and I would like to continue IV diuresis starting tomorrow. He is hemodynamically stable from an infectious standpoint, but will hold off on any further diuresis to night given his pneumonia and start another dose of Lasix tomorrow. I will trend his troponins to be sure an ischemic event did not create his decompensation and monitor him on telemetry. 3. Obstructive sleep apnea. Continue home CPAP. He brought his own CPAP. 4. AFib: He is rate controlled on Cardizem. Continue Cardizem and warfarin. His INR is therapeutic. 5. Peripheral vascular disease, status post bypass. Continue statin. 6. Right avila wound. This does not look infected. 7. DVT prophylaxis. He is on therapeutic anticoagulation. 8. Disposition: Admit to [address] [place] [address] inpatient. ADDENDUM: Mr. Raman is full code and would want to be intubated should it be required. [id number] #: [id number] #: [id number] [facility]ERSanjuana
[2019-04-13] MEDS: Levothyroxine TAB* 88 MCG TAB PO SCH (05:57)
[2019-04-13 07:04] LABS: BUN/Creatinine Ratio 24.4 (8-20); Calcium 9.8 mg/dL (8.6-10.3); EGFR African American 104.9 (>60); EGFR Non-African American 86.7 (>60); Potassium 3.9 mmol/L (3.5-5.0)
[2019-04-13 07:33] LABS: ABS Eosinophils 0.1 10^3/ul (0-0.6); ABS Monocytes 0.5 10^3/ul (0-0.8); ABS Neutrophils 7.5 10^3/ul (1.5-7.7); Eosinophil % 1.4 %; Hematocrit 37 % (42-52); Lymphocyte % 11.1 %; Mean Corpuscular HGB Conc 33 g/dL (31-36); Mean Corpuscular Hemoglobin 31 pg (27-31); Mean Corpuscular Volume 95 fL (80-94); Mean Platelet Volume 9.4 fL (7.4-10.4); Nucleated Red Blood Cells % 0.1; Platelet Count 149 10^3/uL (150-450); Red Blood Count 3.87 10^6 /uL (4.18-5.48); Red Cell Distribution Width 18 % (10-15); White Blood Count 9.2 10^3/uL (3.5-10.8)
[2019-04-13] MEDS: Metoprolol Tartrate TAB* 25 MG PO SCH (09:24)
[2019-04-13] MEDS: Lisinopril TAB* 10 MG PO SCH (09:25)
[2019-04-13] MEDS: Diltiazem CD CAP* 240 MG PO SCH (09:25)
[2019-04-13] MEDS: methylPREDNISolone SOD 40 MG* 1 ML VIAL IV SCH ×2 (09:45→21:11)
[2019-04-13] MEDS: Furosemide IV* 10 MG/ML VIAL (40 MG) IV SCH (09:45)
--- NOTE | 2019-04-13 12:19 | PN ---
Subjective Date of Service: 04/13/19 Interval History: HD #1 on 04/13 73 M PMH COPD, JENNIFER on CPAP, COPD, PVD w distant bypass, hypothyroidism, distant hx prostate CA, PAF on AC, s/p AVR, who presented w cough and MARION, found to have blt PNA, COPD exacerbation, and likely CHF exacerbation with unknown EF baseline Admitted overnight, VSS, no acute events. This morning, feels breathing is slightly better, though still with sig cough and MARION, denies CP or SOB at rest. Objective Active Medications: Acetaminophen (Tylenol Tab*) 650 mg PO Q4H PRN PRN Reason: FEVER/PAIN Al Hydrox/Mg Hydrox/Simethicone (Maalox Plus*) 30 ml PO Q6H PRN PRN Reason: INDIGESTION Albuterol/Ipratropium (Duoneb (Albuterol 2.5 Mg/Ipratropium 0.5 Mg)) 1 neb INH [id number] AWAKE PRN PRN Reason: sob/wheezing Atorvastatin Calcium (Lipitor*) 10 mg PO QPM [facility] Diltiazem HCl (Cardizem Cd Cap*) 240 mg PO QAM [facility] Last Admin: 04/13/19 09:25 Dose: 240 mg Furosemide (Lasix Iv*) 40 mg IV DAILY [facility] Last Admin: 04/13/19 09:45 Dose: 40 mg Ceftriaxone Sodium 1 gm/ (Sodium Chloride) 50 mls @ 200 mls/hr IVPB Q24H [facility] Levothyroxine Sodium (Synthroid Tab*) 88 mcg PO QAM@0600 [facility] Last Admin: 04/13/19 05:57 Dose: 88 mcg Lisinopril (Prinivil Tab*) 20 mg PO QAM [facility] Last Admin: 04/13/19 09:25 Dose: 20 mg Methylprednisolone Sodium Succinate (Solu-Medrol 40 Mg) 40 mg IV Q12H [facility] Last Admin: 04/13/19 09:45 Dose: 40 mg Metoprolol Tartrate (Lopressor Tab*) 25 mg PO DAILY [facility] Last Admin: 04/13/19 09:24 Dose: 25 mg Warfarin Sodium (Coumadin Tab(*)) 5 mg PO DAILY@1700 [facility]; Protocol Vital Signs - 8 hr 04/13/19 04/13/19 07:52 08:00 Temperature 98.4 F Pulse Rate 85 Respiratory 20 18 Rate Blood Pressure 145/58 (mmHg) O2 Sat by Pulse 94 Oximetry Oxygen Devices in Use Now: Nasal Cannula Appearance: Pleasant obese man in NAD Eyes: No Scleral Icterus, PERRLA Neck: NL Appearance and Movements; NL JVP Respiratory: - - Diffuse blt rhonchi, crackles in LLL and in RML, E wheeze, no accessory muscle use, can speak in full sentences Cardiovascular: NL Sounds; No Murmurs; No JVD, - - Irreg irreg Abdominal: NL Sounds; No Tenderness; No Distention, No Hepatosplenomegaly, - - Distended Extremities: - - 1+ edema w blt chronic venous stasis Skin: No Rash or Ulcers Neurological: Alert and Oriented x 3 Result Diagrams: 04/13/19 06:21 04/13/19 06:18 Additional Lab and Data: Lab Results 04/12/19 04/12/19 Range/Units 20:51 20:51 WBC 9.4 (3.5-10.8) 10^3/uL RBC 3.77 L (4.18-5.48) 10^6 /uL Hgb 11.6 L (14.0-18.0) g/dL Hct 36 L (42-52) % MCV 95 H (80-94) fL MCH 31 (27-31) pg MCHC 32 (31-36) g/dL RDW 19 H (10-15) % Plt Count 147 L (150-450) 10^3/uL MPV 8.6 (7.4-10.4) fL Neut % (Auto) 69.6 % Lymph % (Auto) 13.0 % Wilkin % (Auto) 10.9 % Eos % (Auto) 5.2 % Baso % (Auto) 1.3 % Absolute Neuts (auto) 6.6 (1.5-7.7) 10^3/ul Absolute Lymphs (auto) 1.2 (1.0-4.8) 10^3/ul Absolute Monos (auto) 1.0 H (0-0.8) 10^3/ul Absolute Eos (auto) 0.5 (0-0.6) 10^3/ul Absolute Basos (auto) 0.1 (0-0.2) 10^3/ul Absolute Nucleated RBC 0.0 10^3/ul Nucleated RBC % 0.1 INR (Anticoag Therapy) 2.32 H (0.82-1.09) APTT 47.3 H (26.0-38.0) seconds Diagnostic Imaging: CXR Prominent infiltrate on R > L EKG Data: EKG 04/12, A Fib Assess/Plan/Problems-Billing Assessment: 73 M PMH COPD, JENNIFER on CPAP, COPD, PVD w distant bypass, distant hx prostate CA, hypothyroidism, PAF on AC, s/p AVR, who presented w cough and MARION, found to have blt PNA, COPD exacerbation, and likely CHF exacerbation with unknown EF baseline - Patient Problems (1) Pneumonia Current Visit: Yes Status: Acute Code(s): J18.9 - PNEUMONIA, UNSPECIFIED ORGANISM SNOMED Code(s): 493956004 Comment: - Blt lobar PNA 2/2 to CAP - Continue CTX for CAP, Azithromycin 250mg for COPD component Day 1/ on 04/13 (2) Atrial fibrillation Current Visit: Yes Status: Acute Code(s): I48.91 - UNSPECIFIED ATRIAL FIBRILLATION SNOMED Code(s): 27687551 Comment: - Continue AC - Continue rate control with Diltiazem, Metoprolol - s/p AVR (bioprosthetic) (3) COPD (chronic obstructive pulmonary disease) Current Visit: Yes Status: Acute Code(s): J44.9 - CHRONIC OBSTRUCTIVE PULMONARY DISEASE, UNSPECIFIED SNOMED Code(s): 84683375 Comment: - w/ acute current exacerbation - Continue duonebs - Currently holding on prednisone, continue to monitor clincially, s/p IV Solumedrol in ED (4) Volume overload Current Visit: Yes Status: Acute Code(s): E87.70 - FLUID OVERLOAD, UNSPECIFIED SNOMED Code(s): 72248842 Comment: - Appears to have decompensated CHF, w unknown EF - Repeat TTE - Continue Lasix IV daily, strict I/O and daily weights (5) Peripheral vascular disease Current Visit: Yes Status: Acute Code(s): I73.9 - PERIPHERAL VASCULAR DISEASE, UNSPECIFIED SNOMED Code(s): 401375227 Comment: - Continue 2/2 prevention, currently on AC (6) Sleep apnea Current Visit: No Status: Active Code(s): G47.30 - SLEEP APNEA, UNSPECIFIED SNOMED Code(s): 50222491 Comment: - Home CPAP (7) Hypertension Current Visit: Yes Status: Acute Code(s): I10 - ESSENTIAL (PRIMARY) HYPERTENSION SNOMED Code(s): 05563790 Comment: - Lisinopriol, Metoprolol, Cardizem (8) Hypothyroidism Current Visit: Yes Status: Acute Code(s): E03.9 - HYPOTHYROIDISM, UNSPECIFIED SNOMED Code(s): 25941113 Comment: - Continue synthroid (9) DVT prophylaxis Current Visit: Yes Status: Acute Code(s): Z29.9 - ENCOUNTER FOR PROPHYLACTIC MEASURES, UNSPECIFIED SNOMED Code(s): 643360847 Comment: - Therapeutic INR (10) Full code status Current Visit: Yes Status: Acute Code(s): Z78.9 - OTHER SPECIFIED HEALTH STATUS SNOMED Code(s): 511195785 Status and Disposition: Inpatient, PT
[2019-04-13] MEDS ORDERED: Benzonatate CAP* 100 MG PO PRN (12:27)
[2019-04-13] MEDS ORDERED: Perflutren Lipid Microsphere* 3 ML VIAL ONE (14:02)
--- NOTE | 2019-04-13 15:42 | ECHO ---
*[facility]* [place] [address] Fax #: [phone] Transthoracic Echocardiogram Patient: Ha Raman : 1945 Study Date: 04/13/2019 Age: 73 Gender: M HR: 77 bpm Height: 72 in /182.9 cm BSA: 2.6 m^2 Weight: 320.3 lb /145.6 kg BMI: 43.5 kg/m^2 *Teletype Telegrapher: * Kamila Phillips RD *Referring Physician: * Ankita Gutierrez *Reading Physician: * Hernandez Riley MD Indications: Congestive Heart Failure. History: Atrial fibrillation. Chronic obstructive pulmonary disease. Functional status: Following treatment plan for sleep apnea. Risk factors: Morbidly obese. Labs, prior tests, procedures, and surgery: Valve surgery (May 2015). Aortic valve replacement with a 27 mmpericardial valve. Conclusions Summary: 1. Left ventricle: There is moderate to severe concentric hypertrophy. Systolic function is normal by visual assessment. The estimated ejection fraction is 55-60%. Wall motion is normal; there are no regional wall motion abnormalities. 2. Right ventricle: Systolic pressure is moderately increased. 3. Ventricular septum: There is septal flattening of the interventricular septum consistent with RV volume or pressure overload. 4. Left atrium: The atrium is severely dilated. 5. Mitral valve: The findings are consistent with mild stenosis. There is mild regurgitation. The valve area by pressure half-time is 1.5 cm^2. 6. Aortic valve: There is a bioprosthetic valve. There is no evidence of stenosis. There is no significant regurgitation. The LVOT to aortic valve VTI ratio is 0.47. The valve area by the velocity-time integral method is 1.48 cm^2. 7. Tricuspid valve: There is mild-moderate regurgitation. 8. Pulmonary arteries: Systolic pressure is moderately increased. Study data: Transthoracic echocardiogram. Procedure: Transthoracic echocardiography was performed. The study was technically limited due to body habitus. Intravenous Definity , 3.5 mlswas administered. Complete 2D, spectral Doppler, and color flow Doppler. Location: Bedside. Patient status: Inpatient. Patient room number: 453. Rhythm: Atrial fibrillation. Findings Left ventricle: The cavity size is normal. There is moderate to severe concentric hypertrophy. Systolic function is normal by visual assessment. The estimated ejection fraction is 55-60%. Wall motion is normal; there are no regional wall motion abnormalities. Left ventricular diastolic function parameters are indeterminate. Right ventricle: The cavity size is moderately dilated. Systolic function is mildly reduced by visual assessment. Systolic pressure is moderately increased. Ventricular septum: Ventricular septal wall motion has a postoperative appearance. There is septal flattening of the interventricular septum consistent with RV volume or pressure overload. Left atrium: The atrium is severely dilated. Right atrium: The atrium is severely dilated. Mitral valve: The annulus is mildly calcified. The leaflets are mildly calcified. Mobility is restricted. The findings are consistent with mild stenosis. There is mild regurgitation. Aortic valve: There is a bioprosthetic valve. The leaflets are normal thickness. There is no evidence of stenosis. There is no significant regurgitation. Tricuspid valve: The leaflets are normal thickness. There is no evidence of stenosis. There is mild-moderate regurgitation. Pulmonic valve: The leaflets are normal thickness. There is no evidence of stenosis. There is trace regurgitation. Aorta: Aortic root: The aortic root is mildly dilated. Ascending aorta: The ascending aorta is moderately dilated. Aortic arch: The aortic arch is appears normal. Pericardium: A prominent pericardial fat pad is present. There is no significant pericardial effusion. Pulmonary arteries: Poorly visualized. Systolic pressure is moderately increased. Systemic veins: Inferior vena cava: The vessel is dilated. The respirophasic diameter changes are blunted (< 50%). Measurements Left ventricle Value Ref Aortic valve Value Ref WARREN, LAX 4.5 cm 4.2 - 5.8 July diam, ED 2.3 cm ----- ESD, LAX 3.6 cm 2.5 - 4.0 Peak v, S 1.91 m/sec ----- FS, LAX (L) 20 % 25 - 43 VTI, S 34.0 cm ----- PW, ED, LAX (H) 1.9 cm 0.6 - 1.0 Mean grad, S 6.0 mm Hg ----- FS (L) 20 % 25 - 43 Peak grad, S 15.0 mm Hg ----- PW, ED (H) 1.9 cm 0.6 - 1.0 LVOT/AV, VTI ratio 0.47 ----- EDV 91 ml 62 - 150 RONAL, VTI 1.48 cm^2 ----- ESV 54 ml 21 - 61 LVOT/AV, Vpeak ratio 0.39 ----- E', lat july, TDI 14.6 cm/sec >=10.0 RONAL, Vmax 1.21 cm^2 - ---- E/e', lat july, 12 TDI Mitral valve Value Ref E', med july, TDI 10.1 cm/sec >=7.0 Peak E 1.71 m/sec - ---- E/e', med july, 17 Peak A 0 m/sec ---- - TDI Decel time 240 ms ----- E', avg, TDI 12.4 cm/sec PHT 175 ms ---- - E/e', avg, TDI 14 <=14 Mean grad, D 5.0 mm Hg - ---- Peak grad, D 17.0 mm Hg ----- LVOT Value Ref Peak E/A ratio 427.5 ----- Diam, S 2.00 cm MVA, PHT 1.5 cm^2 ----- Area 3.1 cm^2 MVA, LVOT cont 1.1 cm^2 ----- Peak emmie, S 0.74 m/sec VTI, S 16.0 cm Pulmonic valve Value Ref Mean grad, S 1 mm Hg Peak v, S 0.85 m/sec ----- SV 51 ml Peak grad, S 3.0 mm Hg ----- SV/bsa 20 ml/m^2 Tricuspid valve Value Ref Ventricular septum Value Ref TR peak v (H) 3 m/sec <=2.8 IVS, ED (H) 1.7 cm 0.6 - 1.0 Peak RV-RA grad, S 36 mm Hg ----- Right ventricle Value Ref Aortic root Value Ref AW thickness, ED (H) 0.9 cm 0.1 - 0.5 Root diam 3.8 cm <4.6 WARREN, LAX 4.7 cm WARREN minor ax, A4C (H) 6.0 cm 1.9 - 3.5 Ascending aorta Value Ref mid AAo AP diam, S 4.8 cm ----- Pressure, S 51 mm Hg Aortic arch Value Ref Left atrium Value Ref Arch diam 1.9 cm ----- AP dim, ES (H) 6.10 cm 3.00 - 4.00 Decending aorta Value Ref ML dim, A4C 6.3 cm Kirti peak emmie 1.19 m/sec ----- SI dim, A4C 7.0 cm Vol/bsa, ES, 1-p (H) 61 ml/m^2 12 - 37 Pulmonary artery Value Ref A4C Pressure, S 48.0 mm Hg ----- Vol/bsa, ES, A/L (H) 94 ml/m^2 16 - 34 Inferior vena cava Value Ref Right atrium Value Ref Diam 3.0 cm ----- SI dim, ES (H) 6.7 cm 3.4 - 5.3 ML dim, ES, A4C (H) 6.8 cm 2.6 - 4.4 SI dim, ES, A4C (H) 6.7 cm 3.4 - 5.3 Estimated RAP 15 mm Hg Legend: (L) and (H) cordell values outside specified reference range. Prepared and electronically signed by Hernandez Riley MD 04/13/2019 15:42
[2019-04-13] MEDS ORDERED: cefTRIAXone(*) 1 GM in NS 0.9% 50 ML* 50 ML IVPB SCH (17:00)
[2019-04-13] MEDS ORDERED: Warfarin TAB(*) 5 MG PO SCH (17:00)
[2019-04-13] MEDS ORDERED: Atorvastatin* 10 MG TAB PO SCH (18:00)
[2019-04-14] MEDS: Levothyroxine TAB* 88 MCG TAB PO SCH (06:05)
--- NOTE | 2019-04-14 07:13 | PN ---
Subjective Date of Service: 04/14/19 Interval History: HD #2 on 04/14 73 M PMH COPD on home O2, JENNIFER on CPAP, COPD, PVD w distant bypass, hypothyroidism, distant hx prostate CA, PAF on AC, s/p AVR, who presented w cough and MARION, found to have blt PNA, COPD exacerbation, and likely CHF exacerbation with unknown EF baseline. Overnight no acute events, VSS Labs: Normal this AM, INR 2.1 Imaging: Yesterday with echo showing RV overload but preserved EF This morning, feels much better from a respiratory standpoint, feels like back at baseline would like to go home. Will need abx for a few days, he feels comfortable with this. Also need follow up appt. Objective Active Medications: Acetaminophen (Tylenol Tab*) 650 mg PO Q4H PRN PRN Reason: FEVER/PAIN Al Hydrox/Mg Hydrox/Simethicone (Maalox Plus*) 30 ml PO Q6H PRN PRN Reason: INDIGESTION Albuterol/Ipratropium (Duoneb (Albuterol 2.5 Mg/Ipratropium 0.5 Mg)) 1 neb INH [id number] AWAKE PRN PRN Reason: sob/wheezing Last Admin: 04/13/19 13:16 Dose: 1 neb Atorvastatin Calcium (Lipitor*) 10 mg PO QPM [facility] Last Admin: 04/13/19 17:15 Dose: 10 mg Benzonatate (Tessalon Cap*) 100 mg PO BID PRN PRN Reason: COUGH Diltiazem HCl (Cardizem Cd Cap*) 240 mg PO QAM [facility] Last Admin: 04/13/19 09:25 Dose: 240 mg Furosemide (Lasix Iv*) 40 mg IV DAILY [facility] Last Admin: 04/13/19 09:45 Dose: 40 mg Ceftriaxone Sodium 1 gm/ (Sodium Chloride) 50 mls @ 200 mls/hr IVPB Q24H [facility] Last Admin: 04/13/19 17:16 Dose: 200 mls/hr Azithromycin 250 mg/ Sodium (Chloride) 250 mls @ 250 mls/hr IVPB Q24H [facility] Stop: 04/18/19 12:59 Levothyroxine Sodium (Synthroid Tab*) 88 mcg PO QAM@0600 [facility] Last Admin: 04/14/19 06:05 Dose: 88 mcg Lisinopril (Prinivil Tab*) 20 mg PO QAM [facility] Last Admin: 04/13/19 09:25 Dose: 20 mg Methylprednisolone Sodium Succinate (Solu-Medrol 40 Mg) 40 mg IV Q12H [facility] Last Admin: 04/13/19 21:11 Dose: 40 mg Metoprolol Tartrate (Lopressor Tab*) 25 mg PO DAILY [facility] Last Admin: 04/13/19 09:24 Dose: 25 mg Warfarin Sodium (Coumadin Tab(*)) 5 mg PO DAILY@1700 [facility]; Protocol Last Admin: 04/13/19 17:15 Dose: 5 mg Vital Signs - 8 hr 04/13/19 04/14/19 23:18 03:00 Temperature 97.4 F 98 F Pulse Rate 67 83 Respiratory 17 18 Rate Blood Pressure 118/59 126/70 (mmHg) O2 Sat by Pulse 93 96 Oximetry Oxygen Devices in Use Now: Nasal Cannula Appearance: Obese man in NAD, pleasant watching TV, wearing NC Eyes: No Scleral Icterus, PERRLA Ears/Nose/Mouth/Throat: NL Teeth, Lips, Gums Neck: NL Appearance and Movements; NL JVP Respiratory: - - Crackles in R lobe only, rhonchi and quiet E wheeze mildly improved from prior Cardiovascular: NL Sounds; No Murmurs; No JVD, - - irreg irreg with 2/6 LISSY Abdominal: - - Distended but soft NABS Lymphatic: No Cervical Adenopathy Extremities: - - 1+ pitting edema Neurological: Alert and Oriented x 3 Result Diagrams: 04/13/19 06:21 04/14/19 06:54 Additional Lab and Data: Lab Results 04/12/19 04/12/19 Range/Units 20:51 20:51 WBC 9.4 (3.5-10.8) 10^3/uL RBC 3.77 L (4.18-5.48) 10^6 /uL Hgb 11.6 L (14.0-18.0) g/dL Hct 36 L (42-52) % MCV 95 H (80-94) fL MCH 31 (27-31) pg MCHC 32 (31-36) g/dL RDW 19 H (10-15) % Plt Count 147 L (150-450) 10^3/uL MPV 8.6 (7.4-10.4) fL Neut % (Auto) 69.6 % Lymph % (Auto) 13.0 % [place] % (Auto) 10.9 % Eos % (Auto) 5.2 % Baso % (Auto) 1.3 % Absolute Neuts (auto) 6.6 (1.5-7.7) 10^3/ul Absolute Lymphs (auto) 1.2 (1.0-4.8) 10^3/ul Absolute Monos (auto) 1.0 H (0-0.8) 10^3/ul Absolute Eos (auto) 0.5 (0-0.6) 10^3/ul Absolute Basos (auto) 0.1 (0-0.2) 10^3/ul Absolute Nucleated RBC 0.0 10^3/ul Nucleated RBC % 0.1 INR (Anticoag Therapy) 2.32 H (0.82-1.09) APTT 47.3 H (26.0-38.0) seconds Microbiology and Other Data: Microbiology 04/12/19 22:05 Aerobic Blood Culture - Preliminary Blood Venous No Growth Day 1 Anaerobic Blood Culture - Preliminary No Growth Day 1 04/13/19 17:25 Gram Stain - Preliminary Sputum Expectorated Diagnostic Imaging: CXR Prominent infiltrate on R > L Echo: R Vent septal flattning c/w overload, also EF 55-60% EKG Data: EKG 04/12, A Fib Assess/Plan/Problems-Billing Assessment: 73 M PMH COPD, JENNIFER on CPAP, COPD, PVD w distant bypass, distant hx prostate CA, hypothyroidism, PAF on AC, s/p AVR, who presented w cough and MARION, found to have blt PNA, COPD exacerbation, and HFpEF exacerbation - Patient Problems (1) Pneumonia Current Visit: Yes Status: Acute Code(s): J18.9 - PNEUMONIA, UNSPECIFIED ORGANISM SNOMED Code(s): 645504421 Comment: - Blt lobar PNA 11/15 to CAP - Continue CTX for CAP, Azithromycin 250mg for COPD component Day 12/21 on 04/14. Will d/c on Levofloxacin for additional 7 days. (2) Atrial fibrillation Current Visit: Yes Status: Acute Code(s): I48.91 - UNSPECIFIED ATRIAL FIBRILLATION SNOMED Code(s): 32045008 Comment: - Continue AC - Continue rate control with Diltiazem, Metoprolol - s/p AVR (bioprosthetic) (3) COPD (chronic obstructive pulmonary disease) Current Visit: Yes Status: Acute Code(s): J44.9 - CHRONIC OBSTRUCTIVE PULMONARY DISEASE, UNSPECIFIED SNOMED Code(s): 81058190 Comment: - w/ acute current exacerbation - Continue duonebs - Currently holding on prednisone, continue to monitor clincially, s/p IV Solumedrol in ED (4) Heart failure with preserved ejection fraction Current Visit: Yes Status: Acute Code(s): I50.30 - UNSPECIFIED DIASTOLIC ( CONGESTIVE) HEART FAILURE SNOMED Code(s): 494962224 Comment: - Acute exacerbation R sided, with pHTN and volume overload, EF 55- 60% - Lasix 40 mg PO daily at home, 40mg IV daily x 3 days, will return to home dose as appears reaching hypovolemia - CHF 2/2 to pHTN, optimized on BB, TATY, Statin, and is on AC for fib (5) Peripheral vascular disease Current Visit: Yes Status: Acute Code(s): I73.9 - PERIPHERAL VASCULAR DISEASE, UNSPECIFIED SNOMED Code(s): 800810371 Comment: - Continue 2/2 prevention, currently on AC (6) Sleep apnea Current Visit: No Status: Active Code(s): G47.30 - SLEEP APNEA, UNSPECIFIED SNOMED Code(s): 07375381 Comment: - Home CPAP (7) Hypertension Current Visit: Yes Status: Acute Code(s): I10 - ESSENTIAL (PRIMARY) HYPERTENSION SNOMED Code(s): 12718650 Comment: - Lisinopriol, Metoprolol, Cardizem (8) Hypothyroidism Current Visit: Yes Status: Acute Code(s): E03.9 - HYPOTHYROIDISM, UNSPECIFIED SNOMED Code(s): 95017483 Comment: - Continue synthroid (9) DVT prophylaxis Current Visit: Yes Status: Acute Code(s): Z29.9 - ENCOUNTER FOR PROPHYLACTIC MEASURES, UNSPECIFIED SNOMED Code(s): 468627322 Comment: - Therapeutic INR (10) Full code status Current Visit: Yes Status: Acute Code(s): Z78.9 - OTHER SPECIFIED HEALTH STATUS SNOMED Code(s): 640509089 Status and Disposition: DC today. PT cleared, will make FU with Dr. Gallo
[2019-04-14 07:37] LABS: INR 2.1 (0.82-1.09)
[2019-04-14 07:44] LABS: BUN/Creatinine Ratio 35.9 (8-20); Calcium 9.9 mg/dL (8.6-10.3); EGFR African American 117.4 (>60); Potassium 3.9 mmol/L (3.5-5.0)
[2019-04-14] MEDS: Furosemide IV* 10 MG/ML VIAL (40 MG) IV SCH (09:01)
[2019-04-14] MEDS: methylPREDNISolone SOD 40 MG* 1 ML VIAL IV SCH (09:01)
[2019-04-14] MEDS: Metoprolol Tartrate TAB* 25 MG PO SCH (09:02)
[2019-04-14] MEDS: Lisinopril TAB* 10 MG PO SCH (09:02)
[2019-04-14] MEDS: Diltiazem CD CAP* 240 MG PO SCH (09:02)
[2019-04-14 09:38] VITALS: BP 144/74
[2019-04-14] MEDS ORDERED: Azithromycin IV(*) 250 MG in NS 0.9% 250 ML* 250 ML IVPB SCH (13:00)
--- NOTE | 2019-04-14 13:53 | DS ---
DISCHARGE SUMMARY: DATE OF ADMISSION: 04/12/19 DATE OF DISCHARGE: 04/14/19 DISPOSITION AT THE TIME OF DISCHARGE: Stable to return to home. PRIMARY DIAGNOSES: 1. Bilateral pneumonia. 2. Congestive heart failure exacerbation. 3. Chronic obstructive pulmonary disease. SECONDARY DIAGNOSES: 1. Chronic obstructive pulmonary disease. 2. Heart failure with preserved ejection fraction. 3. Hypothyroidism. 4. Peripheral vascular disease with distant bypass. 5. Obstructive sleep apnea on CPAP. 6. Paroxysmal atrial fibrillation on anticoagulation, status post aortic valve replacement. MEDICATIONS AT THE TIME OF DISCHARGE: 1. Levofloxacin 750 mg p.o. daily for additional 7 days status post discharge. 2. Benzonatate 100 mg p.o. b.i.d. p.r.n. for cough. 3. Atorvastatin 10 mg p.o. daily. 4. Diltiazem 240 mg p.o. q.a.m. 5. Furosemide 40 mg p.o. daily. 6. Levothyroxine 88 mcg p.o. q.a.m. 7. Lisinopril 20 mg p.o. q.a.m. 8. Metoprolol tartrate 25 mg p.o. daily. 9. Warfarin 5 mg p.o. daily at 1700. 10. DuoNeb 1 neb inhaled q.4 hours p.r.n. for shortness of breath. 11. Albuterol inhaler 1 puff inhaled q.4 hours p.r.n. for shortness of breath. 12. Dulera 1 puff inhaled b.i.d. Medication changes on this hospitalization include: 1. The addition of Levofloxacin for an additional 7 days status post discharge. 2. Benzonatate p.r.n. for cough. HISTORY OF PRESENT ILLNESS AND HOSPITAL COURSE: A 73-year-old with past medical history as above who presents with subacute complaints of shortness of breath and cough for 3 days to the emergency room on 04/12/19 in the evening. His had made him to go to urgent care in the context of worsening w heezing and shortness of breath over several days who referred him ultimately to the emergency room. Of note, he is on 2 L nasal cannula, reportedly to be worn around the clock, although he only wears it during the day. He has compliant with his CPAP. He denies any fevers or chills, nausea or vomiti ng, or chest pain. A chest x-ray was done in the emergency room, which showed bilateral patchy infil trates as well as evidence of volume overload, particularly right greater than left. Labs concerning for mild elevated bicarb consistent with retention and BNP mildly elevated at 335. He is admitted u nder the presumed diagnoses of pneumonia, mild CHF exacerbation, and mild COPD exacerbation. His hos pital course by problem is as follows: 1. Bilateral community-acquired pneumonia. Patient was started on ceftriaxone and azithromycin, rec eived 3 days and white count was never present, never showed signs of sepsis. His overall breathing improved. He still had mild cough at the time of discharge, but overall felt that his breathing had returned to baseline after 3 days of treatment. He will be discharged home on levofloxacin for commu nity- acquired pneumonia for a total of 10 days, meaning he will be receiving 7 [address] doses status po st discharge. A primary care provider followup appointment was made for him within 10 days of discha rge. 2. Heart failure with preserved ejection fraction, acute exacerbation. Patient had repeat echocardi ogram done on hospital day 2, which showed ejection fraction of 55% to 60%, although did show right ventricle septum flattening and signs of volume overload with increased RVSP consistent with cor pulm onale most likely secondary to his JENNIFER and COPD. Also some component obesity hypoventilation syndrom e. Patient was given extra diuresis with 40 mg IV compared to his 40 mg p.o. and diuresed well with a total negative 3 L balance for this hospitalization. He was resumed on his home diuresis given he i s approaching euvolemia on day of discharge. He will need close followup and consider enrolling this patient in a transitional care program as an outpatient. Ejection fraction was preserved and no reg ional wall motion abnormalities were noted. No signs of active ischemia during this hospitalization. 3. COPD. Patient has known COPD, on home oxygen. At baseline, he had mild wheezing, although mostl y this is secondary to volume overload and improved with diuresis as opposed to improving with nebuli zers and steroids. He was given 125 mg of steroids in the emergency room although oral steroids were not continued given his clinical improvement with diuresis alone. He has DuoNebs and can give himse lf nebulizers at home. He feels his symptoms are approaching baseline. He is already optimized on l chemo-acting beta agonist and inhaled corticosteroid and a short-acting beta agonist. He is not optimi zed on an antimuscarinic or anticholinergic agent; this could be considered as an outpatient. 4. JENNIFER. He is compliant on CPAP and wears his home equipment here. His mild retention seen on admi ssion has fully resolved by the day of discharge. 5. Atrial fibrillation. Patient is on rate control with diltiazem and metoprolol. He remains in rat e controlled atrial fibrillation, DIEGO-VASC score greater than 3 and he is on anticoagulation with wa rfarin. He has a therapeutic INR with goal between 2 and 3 and on day of discharge 2.1. 6. Peripheral vascular disease. He is on secondary prevention with statin and anticoagulation. 7. Hypertension is well controlled on lisinopril, metoprolol and Cardizem which home medication will be continued. 8. Hypothyroidism. He is on Synthroid which will be continued. On the day of discharge, patient is ambulating at baseline, can safely maneuver with oxygen, cleared by PT to go. He is voiding freely and able to complete his ADLs and IADLs independently and feels h e has returned to baseline. He is open to following up with the primary care provider and has no bar riers to do so. He understands the reasons to return to the hospital, which includes worsening of sy mptoms, new symptoms, acute dyspnea, chest pain, or any complications with medications that are presc ribed to him. LABS AND STUDIES DURING THIS HOSPITALIZATION: Echocardiogram, which was done on 04/13/19 showed pres erved ejection fraction of left ventricle, no regional wall motion abnormalities and increased RVSP w ith right ventricular flattening. No baseline to compare to. Chest x-ray was done on 04/12/19, whic h showed bilateral lobar infiltrates with right greater than left as well as bilateral interstitial e crow consistent with volume overload and cardiomegaly. EKG was done on 04/12/19, which showed rate c ontrolled atrial fibrillation with no signs of active ischemia. Labs on the day of discharge, INR is 2.1, sodium is 143, potassium is 3.9, chloride 105, carbon dioxi de 31, anion gap 7, BUN 28, creatinine 0.78, glucose 175. Physical exam was done on the day of discharge. It could be found documented in the progress note. The only remarkable findings are mild bilateral crackles on right side greater than left base, vastly improved from day of admission. ITEMS TO FOLLOW UP STATUS POST DISCHARGE: 1. Community-acquired pneumonia. Patient received 10 days of total antibiotics. He has focal findin gs on right lung only and can be followed up clinically if present with repeat chest x-ray as outpati ent. 2. Heart failure exacerbation. Patient was diuresed with IV Lasix and done so effectively. He was approaching evolemia on day of discharge, consider enrolling in transitional care. Also consider ___ ___ from a pulmonary hypertension standpoint, given his heart failure sources from cor pulmonale. 3. Elevated glucose. Patient found to have elevated glucose on day of discharge and A1c was added a nd can be addended to this report once is found. Also consider checking his primary care provider. At age 73, A1c goal less than 8, possibly some impaired glucose intolerance in the setting of receivi ng steroids during the emergency room. 4. COPD. Goal for baseline. Consider optimizing with anticholinergic or antimuscarinic agents such as Spiriva. Also, patient is noncompliant with daily oxygen, which can be addressed with the primar y care. TIME SPENT: Sixty five minutes was spent in the planning of this discharge with over half that spent directly at the bedside of the patient providing direct patient care. Plan of care was discussed with the patient and family, they have no further questions. If there are any questions about the care of this patient during this hospitalization, please do not hesitate to contact the [facility] hospitalist team. [id number]/[facility] #: [id number]
== END 2019-04-14 11:53 | disposition home or self-care (01) | DRG 291 ==
LOC: ED 19:36 → MEDTELE 23:53
PROVIDERS: ADMIT Internal Medicine; ATTEND Internal Medicine
DX: I11.0 Hypertensive heart disease with heart failure (principal); J18.1 Lobar pneumonia, unspecified organism; J96.21 Acute and chronic respiratory failure with hypoxia; J44.0 Chronic obstructive pulmonary disease with (acute) lower respiratory infection; J44.1 Chronic obstructive pulmonary disease with (acute) exacerbation; Z68.41 Body mass index [BMI] 40.0-44.9, adult; I50.33 Acute on chronic diastolic (congestive) heart failure; E78.00 Pure hypercholesterolemia, unspecified; H26.9 Unspecified cataract; I73.9 Peripheral vascular disease, unspecified; G47.33 Obstructive sleep apnea (adult) (pediatric); I48.91 Unspecified atrial fibrillation; E03.9 Hypothyroidism, unspecified; I48.0 Paroxysmal atrial fibrillation; E66.9 Obesity, unspecified; I27.20 Pulmonary hypertension, unspecified; N40.0 Benign prostatic hyperplasia without lower urinary tract symptoms; H91.90 Unspecified hearing loss, unspecified ear; Z85.46 Personal history of malignant neoplasm of prostate; Z95.2 Presence of prosthetic heart valve; Z85.828 Personal history of other malignant neoplasm of skin; Z82.49 Family history of ischemic heart disease and other diseases of the circulatory system; Z87.891 Personal history of nicotine dependence; Z72.89 Other problems related to lifestyle; Z98.41 Cataract extraction status, right eye; Z79.01 Long term (current) use of anticoagulants
CPT/HCPCS: 36415; 71046; 80048; 80053; 82803; 83036; 83605; 83880; 84484; 85025; 85610; 85730; 87040; 87070; 87205; 93005; 93306; 94640; 99285; A9270-GY; C8929; G8978-GP-CI; G8979-GP-CI; G8980-GP-CI; J0456; J0696; J1940; J2920; J2930

== ENCOUNTER 2019-05-08 17:44 | Inpatient (IN) | payer MEDICARE ==
[2019-05-08] MEDS ORDERED: Clindamycin 900 MG IVPREMIX(* 900 MG/50 ML SDV IV ONE (18:14)
[2019-05-08] MEDS ORDERED: Acetaminophen TAB* 325 MG PO ONE (18:14)
--- NOTE | 2019-05-08 18:52 | ED ---
Dizziness - HPI Summary HPI Summary: This patient is a 73 year old M presenting to 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 The pts stated that the pt was at camp today when he collapsed after feeling lightheaded. The pt states that he has been more SOB than normal leading up to the collapse today. He states that he took all his medications today. The pts stated that he has red streaks on his R leg and both legs feel hotter than normal. Pt denies any fever, chills, erythema of eyes, sore throat, CP, cough, abdominal pain, N/V, dysuria, hematuria, myalgia, edema, or dizziness. The symptoms are aggravated by nothing and alleviated by nothing The pt has a PMHx of recent PNA and COPD. - History Of Current Complaint Chief Complaint: EDShortnessOfBreath Stated Complaint: FALL, WEAKNESS PER EMS Time Seen by Provider: 05/08/19 18:01 Hx Obtained From: Patient, Family/Willow Worker - Last Known Well Date: yesterday Onset/Duration: Unknown Timing: Minutes Severity Initially: Moderate Severity Currently: None Character: Lightheaded Aggravating Factor(s): Exertion Alleviating Factor(s): Nothing Associated Signs And Symptoms: Positive: Negative - fever, chills, erythema of eyes, sore throat, CP, cough, abdominal pain, N/V, dysuria, hematuria, myalgia , edema, or dizziness., SOB, Fever - 101.8 F, Other: - Pt states that his legs were hotter than usual. Negative: Nausea, Vomiting, Chest Pain - Allergies/Home Medications Allergies/Adverse Reactions: Allergies Allergy/AdvReac Type Severity Reaction Status Date / Time No Known Allergies Allergy Verified 05/08/19 18:22 Home Medications: Home Medications Albuterol HFA INHALER* [Ventolin HFA Inhaler*] 2 puff INH Q4H PRN 05/08/19 [ History Confirmed 05/08/19] Furosemide TAB* [Lasix TAB*] 60 mg PO DAILY 05/08/19 [History Confirmed 05/08/19 ] Levothyroxine TAB* [Synthroid TAB*] 100 mcg PO DAILY 05/08/19 [History Confirmed 05/08/19] Metoprolol Tartrate TAB* [Lopressor TAB*] 25 mg PO BID 05/08/19 [History Confirmed 05/08/19] Warfarin TAB(*) [Coumadin TAB(*)] 7.5 mg PO MOTUWETHFRSA 05/08/19 [History Confirmed 05/08/19] dilTIAZem HCl [Cartia Xt] 240 mg PO DAILY 05/08/19 [History Confirmed 05/08/19] PMH/Surg Hx/FS Hx/Imm Hx Previously Healthy: Yes Endocrine/Hematology History: Reports: Hx Thyroid Disease Denies: Hx Anticoagulant Therapy, Hx Blood Disorders, Hx Diabetes, Hx Anemia , Hx Unexplained Bleeding Cardiovascular History: Reports: Hx Hypercholesterolemia, Hx Hypertension, Other Cardiovascular Problems/Disorders - AORTIC VALVE REPLACEMENT AT [facility] LATE 2014 Denies: Hx Angina, Hx Angioplasty, Hx Auto Implanted Cardiovert Defib, Hx Cardiomegaly, Hx Congestive Heart Failure, Hx Coronary Artery Disease, Hx Deep Vein Thrombosis, Hx Pacemaker/ICD, Hx Rheumatic Fever, Hx Syncope Respiratory History: Reports: Hx Chronic Obstructive Pulmonary Disease (COPD) - undiagnosed, Hx Sleep Apnea - uses Cpap History: Reports: Hx Benign Prostatic Hyperplasia Denies: Hx Acute Renal Failure, Hx Chronic Renal Failure, Hx Dialysis, Hx Kidney Infection, Hx Kidney Stones Sensory History: Reports: Hx Cataracts - surgery on right eye, Hx Contacts or Glasses, Hx Hearing Problem - little [place] Denies: Hx Glaucoma, Hx Macular Degeneration, Hx Hearing Aid Opthamlomology History: Reports: Hx Cataracts - surgery on right eye, Hx Contacts or Glasses Denies: Hx Glaucoma, Hx Macular Degeneration - Cancer History Cancer Type, Location and Year: 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 Hx Chemotherapy: No Hx Radiation Therapy: Yes - Surgical History Surgery Procedure, Year, and Place: open heart, VALVE REPLACED Hx Anesthesia Reactions: No Infectious Disease History: No Infectious Disease History: Denies: Traveled Outside the [place] in Last 30 Days - Family History Known Family History: Positive: Cardiac Disease, Hypertension - Social History Alcohol Use: Rare Hx Substance Use: No Substance Use Type: Reports: None Hx Tobacco Use: Yes Smoking Status (MU): Former Smoker Type: Cigarettes, Cigars Amount Used/How Often: 5 cigars/day Length of Time of Smoking/Using Tobacco: On and Off for 32 Years Have You Smoked in the Last Year: No Review of Systems Positive: Fever - 101.8 F. Negative: Chills Negative: Erythema Negative: Sore Throat Negative: Chest Pain Positive: Shortness Of Breath. Negative: Cough Negative: Abdominal Pain, Vomiting, Nausea Negative: dysuria, hematuria Negative: Myalgia, Edema Positive: Other - open sore on R leg, heat eminating from the legs . Negative: Rash Neurological: Other - POSITIVE: Lightheaded, dizzy Positive: Syncope. Negative: Headache All Other Systems Reviewed And Are Negative: Yes Physical Exam - Summary Physical Exam Summary: Constitutional: Well-developed, Well-nourished, Alert. (-) Distressed Skin: Warm, Dry, Ulceration 4mm on the R medial calf with surrounding erythema up to just below the knee. No fluctuance. HENT: Normocephalic; Atraumatic Eyes: Conjunctiva normal Neck: Musculoskeletal ROM normal neck. (-) JVD, (-) Stridor, (-) Tracheal deviation Cardio: Rhythm regular, rate normal, Heart sounds normal; Intact distal pulses; The pedal pulses are 2+ and symmetric. Radial pulses are 2+ and symmetric. (-) Murmur Pulmonary/Chest wall: Effort normal. (-) Respiratory distress, (-) Wheezes, (-) Rales Abd: Soft, (-) tenderness, (-) Distension, (-) Guarding, (-) Rebound Musculoskeletal: (-) Edema Lymph: (-) Cervical adenopathy Neuro: Alert, Oriented x3 Psych: Mood and affect Normal Triage Information Reviewed: Yes Vital Signs On Initial Exam: Initial Vitals Temp Pulse Resp BP Pulse Ox 101.8 F 99 25 130/102 95 05/08/19 18:09 05/08/19 18:09 05/08/19 18:09 05/08/19 18:09 05/08/19 18:09 Vital Signs Reviewed: Yes Diagnostics - Vital Signs Vital Signs Temp Pulse Resp BP Pulse Ox 05/08/19 18:09 101.8 F 99 25 130/102 95 - Laboratory Result Diagrams: 05/09/19 05:27 05/09/19 05:27 Lab Statement: Any lab studies that have been ordered have been reviewed, and results considered in the medical decision making process. - Radiology CXR Radiology Interpretation Completed By: Radiologist Summary of Radiographic Findings: no acute processes. Pending offical review - EKG 1843 Cardiac Rate: Tachycardia - 101 BPM EKG Rhythm: Atrial Fibrillation ST Segment: Normal Ectopy: None Summary of EKG Findings: Sinus tachycardia with a rate of 101 BPM and Atrial fibrillation, otherwise normal EKG. Interpreted by Dr. Barahona at 1851 05/08/19. 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 The pts stated that the pt was at camp today when he collapsed after feeling lightheaded. The pt states that he has been more SOB than normal leading up to the collapse today. He states that he took all his medications today. His PE found that he has Ulceration 4mm on the R medial calf with surrounding erythema up to just below the knee. No fluctuance. His EKG showed Sinus tachycardia with a rate of 101 BPM and Atrial fibrillation, otherwise normal EKG. CXR shows no acute processes. The pt had elevated Hct and Hgb. This pt will be admited to [facility] by Dr. Mari, hospitalist, with a Dx of septic celluitis in his R leg. - Diagnoses Provider Diagnoses: Acute on chronic diastolic CHF (congestive heart failure) Discharge - Sign-Out/Discharge Documenting (check all that apply): Patient Departure - admitted Patient Received Moderate/Deep Sedation with Procedure: No - Discharge Plan Condition: Stable Disposition: ADMITTED TO [facility] - Billing Disposition and Condition Condition: STABLE Disposition: Admitted to [facility] - Attestation Statements Document Initiated by Luis M: Yes Documenting Scribe: Jose F Disla Provider For Whom Scribe is Documenting (Include Credential): Dillon Guzman MD Scribe Attestation: Jose F Stanford scribed for Dillon Guzman MD on 05/11/19 at 0745. Scribe Documentation Reviewed: Yes Provider Attestation: The documentation as recorded by the Jose F smith accurately reflects the service I personally performed and the decisions made by , Dillon Guzman MD Status of Scribe Document: Viewed
[2019-05-08 19:05] LABS: ABS Basophils 0.1 10^3/ul (0-0.2); ABS Eosinophils 0.4 10^3/ul (0-0.6); ABS Lymphocytes 0.9 10^3/ul (1.0-4.8); ABS Monocytes 0.8 10^3/ul (0-0.8); ABS Neutrophils 6.3 10^3/ul (1.5-7.7); Eosinophil % 4.5 %; Hematocrit 37 % (42-52); Hemoglobin 12.3 g/dL (14.0-18.0); Lymphocyte % 10.7 %; Mean Corpuscular HGB Conc 33 g/dL (31-36); Mean Corpuscular Hemoglobin 31 pg (27-31); Mean Corpuscular Volume 94 fL (80-94); Mean Platelet Volume 8.7 fL (7.4-10.4); Platelet Count 148 10^3/uL (150-450); Red Blood Count 3.94 10^6 /uL (4.18-5.48); Red Cell Distribution Width 18 % (10-15); White Blood Count 8.5 10^3/uL (3.5-10.8)
[2019-05-08 19:19] LABS: Troponin I 0.01 ng/mL (<0.04)
[2019-05-08 19:30] LABS: Albumin 4.2 g/dL (3.2-5.2); Albumin/Globulin Ratio 1.7 (1-3); BUN/Creatinine Ratio 18.9 (8-20); Calcium 9.8 mg/dL (8.6-10.3); EGFR African American 93.5 (>60); EGFR Non-African American 77.3 (>60); Globulin 2.5 g/dL (2-4); Magnesium 2.1 mg/dL (1.9-2.7); Potassium 3.7 mmol/L (3.5-5.0); Total Bilirubin 0.8 mg/dL (0.2-1.0); Total Protein 6.7 g/dL (6.4-8.9)
[2019-05-08 19:44] LABS: TSH (Thyroid Stimulating Horm) 3.08 mcIU/mL (0.34-5.60)
[2019-05-08 20:45] LABS: C Reactive Protein 63.34 mg/L (<8.01)
[2019-05-08 20:49] LABS: INR 2.29 (0.82-1.09)
[2019-05-08] MEDS ORDERED: Acetaminophen TAB* 325 MG PO PRN (20:54)
[2019-05-08] MEDS ORDERED: Albuterol HFA INHALER* 8 gm MDI INH PRN (20:58)
[2019-05-08] MEDS ORDERED: Furosemide IV* 10 MG/ML VIAL (40 MG) IV ONE (20:59)
--- NOTE | 2019-05-08 22:44 | HP ---
CC: Dr. Gallo * HISTORY AND PHYSICAL: DATE OF ADMISSION: 05/08/19 PRIMARY CARE PROVIDER: Dr. Gallo. CHIEF COMPLAINT: Status post fall, shortness of breath, and right leg redness. HISTORY OF PRESENT ILLNESS: Ha Raman is a 73-year-old male with history of chronic venous stasis and venous stasis ulceration of the right leg, who was just hospitalized at the beginning of the month for pneumonia at our facility. The patient also has history of diastolic CHF. He is unsure if he gained any weight, but he stated that his primary care provider increased his Lasix from 40 to 60 mg within approximately 2 weeks. Today, he stated that he felt short of breath in the morning, but they decided to go camping with his . He stated that after his hospitalization for pneumonia at the beginning of the month, he had been using his oxygen on as needed basis somewhat more often, but he does not use it during his car trip and at the campsite, although he did have the oxygen concentrator in his camper. He went outside and stated that he did not feel well and he wanted to go home. At that point, he felt weak and he fell down, hitting his left shoulder. His uncovered his JESSIE stockings that she placed on his legs today in the morning, his right leg was much better than before. He is going to be placed on overnight observation with a diagnosis of cellulitis and likely exacerbation of chronic diastolic CHF. PAST MEDICAL HISTORY: 1. History of diastolic CHF, on p.r.n. oxygen during the day time. 2. History of prostate cancer, status post radiation. 3. History of obstructive sleep apnea, on oxygen and CPAP at night. 4. History of chronic atrial fibrillation, on Coumadin. 5. History of COPD. 6. History of peripheral vascular disease. 7. History of aortic valve replacement with a bovine valve. 8. Hypothyroidism. MEDICATIONS: At home, include: 1. Lopressor 25 mg daily. 2. Lipitor 20 mg daily. 3. Albuterol inhaler on a p.r.n. basis. 4. Cartia XT 240 mg daily. 5. Metoprolol tartrate 25 mg b.i.d. 6. Furosemide 60 mg daily. 7. Coumadin 5 mg on Sundays and 7.5 mg on remaining days of the week. 8. Lisinopril 20 mg daily. 9. Levothyroxine 100 mcg daily. ALLERGIES: No known drug allergies. FAMILY HISTORY: Reviewed and noncontributory. SOCIAL HISTORY: The patient lives with his , who is his surrogate. He has history of remote smoking. He denies any alcohol or drug use. PHYSICAL EXAMINATION GENERAL: The patient is a very pleasant 73-year-old male, who is in no acute distress. Alert, awake, and oriented x3. VITAL SIGNS: Blood pressure of 120/56, heart rate of 91 and irregular, respiratory rate 20, oxygen saturation 94% on 2 L of oxygen nasal cannula, temperature of 101.8. HEENT: Head: Atraumatic and normocephalic. Eyes: Pupils are equal and reactive to light and accommodation. Oropharynx clear. Mucosa moist. NECK: Supple. No JVD. No bruits bilaterally. RESPIRATORY: Crackles at bilateral bases. CARDIOVASCULAR: Irregularly irregular rhythm. No murmur. ABDOMEN: Soft, protuberant, and nontender. Bowel sounds present in all 4 quadrants. EXTREMITIES: There is +1 pitting pedal edema bilaterally. Pulses are +2 bilaterally. There is no clubbing or cyanosis. NEURO EVALUATION: Speech clear. Cranial nerves II through XII grossly intact. Motor strength is 5/5 bilaterally. SKIN: On evaluation of the skin, the patient's venous stasis, there is brawny discoloration of bilateral lower extremities and in the right distal extremity anteriorly, there is a small area of venous stasis ulceration of approximately 2 cm with bottom coverage with slough. The brawny discoloration of the skin in right leg appears to be definitely with increased redness and some streaking noted to the level of below the knee. DIAGNOSTIC STUDIES/LAB DATA: Showed sodium of 141, potassium 3.7, chloride 104 , carbon dioxide 28, BUN 18, creatinine 0.95. Liver function tests unremarkable apart from alkaline phosphatase mild elevation of 105. C-reactive protein of 63. Troponin of 0.01. Lactic acid of 1.4. TSH of 3.08. CBC: White blood cell count of 8.5, hemoglobin of 12.3, hematocrit of 37, and platelets of 148 which is chronic in this patient. The patient's portable chest x-ray showed mild vascular congestion. That is not an official report. The official report is still pending from the Radiology. The patient's EKG showed atrial fibrillation with a heart rate of 101 beats per minute with negative T wave in lead V6. The patient's INR was noted to be 2.2. ASSESSMENT AND PLAN: 1. Sepsis with right lower extremity cellulitis in patient with chronic venous stasis ulcerations in the area. The patient is going to be placed on overnight observation. He is going to be placed on cefazolin. His lactic acid is below 2. He is not going to be receiving intravenous fluid boluses due to exacerbation of congestive heart failure. 2. Shortness of breath. Likely due to exacerbation of his chronic diastolic congestive heart failure. The patient is unsure what his weight should be and how much if any he gained. At this point, he does appear to be in vascular congestion on the chest x-ray and he is edematous. He is going to receive 40 mg of IV Lasix today and continue with 60 mg p.o. in the morning. Of note, the patient's transthoracic echocardiogram obtained on 04/13/19 showed EF of 60% to 65% with severe concentric left ventricular hypertrophy and mild mitral stenosis and no evidence of stenosis of bioprosthetic aortic valve. 3. For obstructive sleep apnea, the patient is going to be continued on CPAP. 4. For chronic hypoxemic respiratory failure, the patient is going to be continued on his oxygen at 2 L. 5. In regards to the patient's hypothyroidism, his TSH is within normal limits and his Synthroid is going to be continued. 6. For DVT prophylaxis, the patient is anticoagulated fully with Coumadin which is going to be continued. 7. The patient's code status is full. His surrogate is his . TIME SPENT: Approximately 65 minutes was spent on the admission of this patient , more than half that time was spent [id number] with the patient during the interview and physical exam. [id number]/[facility] #: [id number] CHRISTIAN
[2019-05-08] MEDS ORDERED: Warfarin TAB(*) 7.5 MG PO ONE (23:45)
[2019-05-08] MEDS: Metoprolol Tartrate TAB* 25 MG PO SCH (23:51)
[2019-05-09] MEDS: ceFAZolin 1 GM ADVAN(*) 1 GM in NS 0.9% 50 ML* 50 ML IVPB SCH ×5 (00:35→23:04)
[2019-05-09 05:42] LABS: ABS Basophils 0.1 10^3/ul (0-0.2); ABS Eosinophils 0.3 10^3/ul (0-0.6); ABS Lymphocytes 0.8 10^3/ul (1.0-4.8); ABS Monocytes 0.8 10^3/ul (0-0.8); ABS Neutrophils 6.7 10^3/ul (1.5-7.7); Eosinophil % 3.3 %; Hematocrit 35 % (42-52); Hemoglobin 11.4 g/dL (14.0-18.0); Lymphocyte % 9.4 %; Mean Corpuscular HGB Conc 33 g/dL (31-36); Mean Corpuscular Hemoglobin 31 pg (27-31); Mean Corpuscular Volume 93 fL (80-94); Mean Platelet Volume 8.5 fL (7.4-10.4); Platelet Count 138 10^3/uL (150-450); Red Cell Distribution Width 18 % (10-15); White Blood Count 8.7 10^3/uL (3.5-10.8)
[2019-05-09 05:45] LABS: INR 2.41 (0.82-1.09)
[2019-05-09] MEDS: Levothyroxine TAB* 100 MCG TAB PO SCH (05:53)
[2019-05-09 05:57] LABS: BUN/Creatinine Ratio 18.4 (8-20); Calcium 9.2 mg/dL (8.6-10.3); EGFR African American 90.2 (>60); EGFR Non-African American 74.6 (>60); Potassium 3.5 mmol/L (3.5-5.0)
--- NOTE | 2019-05-09 08:25 | PN ---
Subjective Date of Service: 05/09/19 Interval History: Pt is feeling well this AM. He notes his R leg is less red and painful today than it was yesterday. He states there has been more weeping from the wound on the anterior surface of the leg than usual. His SOB is improved from when he presented to the ER. He states he feels back to normal, no longer weak. Objective Active Medications: Acetaminophen (Tylenol Tab*) 650 mg PO Q4H PRN PRN Reason: FEVER/PAIN Albuterol (Ventolin Hfa Inhaler*) 2 puff INH Q4H PRN PRN Reason: SOB/WHEEZING Atorvastatin Calcium (Lipitor*) 10 mg PO QPM [facility] Diltiazem HCl (Cardizem Cd Cap*) 240 mg PO DAILY [facility] Furosemide (Lasix Tab*) 60 mg PO DAILY [facility] Cefazolin Sodium 1 gm/ Sodium (Chloride) 50 mls @ 200 mls/hr IVPB Q6H [facility] Last Admin: 05/09/19 05:56 Dose: 200 mls/hr Levothyroxine Sodium (Synthroid Tab*) 100 mcg PO DAILY@0600 [facility] Last Admin: 05/09/19 05:53 Dose: 100 mcg Lisinopril (Prinivil Tab*) 20 mg PO QAM [facility] Metoprolol Tartrate (Lopressor Tab*) 25 mg PO BID [facility] Last Admin: 05/08/19 23:51 Dose: 25 mg Warfarin Sodium (Coumadin Tab(*)) 5 mg PO Villarreal@1700 [facility]; Protocol Warfarin Sodium (Coumadin Tab(*)) 7.5 mg PO MoTuWeThFrSa@1700 [facility]; Protocol Vital Signs - 8 hr 05/09/19 05/09/19 03:50 07:34 Temperature 101.4 F 98.3 F Pulse Rate 87 95 Respiratory 20 16 Rate Blood Pressure 134/69 125/58 (mmHg) O2 Sat by Pulse 95 93 Oximetry Oxygen Devices in Use Now: None Appearance: Elderly obese male sitting up on the edge bed, NAD Eyes: No Scleral Icterus Ears/Nose/Mouth/Throat: Mucous Membranes Moist Respiratory: Symmetrical Chest Expansion and Respiratory Effort, Clear to Auscultation - diminished breath sounds throughout but clear Cardiovascular: - - irregularly irregular, mildly tachycardic, R>L LE edema Abdominal: NL Sounds; No Tenderness; No Distention Extremities: No Clubbing, Cyanosis Skin: No Nodules or Sclerosis, - - shallow ulcearations noted to R anterior and lateral leg, chronic venous stasis changes noted to to the B/L LE. R leg is slightly more red than the left Neurological: Alert and Oriented x 3 Result Diagrams: 05/09/19 05:27 05/09/19 05:27 Assess/Plan/Problems-Billing Mr Raman is a 73 yo M who has a h/o atrial fibrillation, chronic diastolic CHF, JENNIFER, PVD, COPD and hypothyroidism who presented to the ER with c/o weakness ( fall), R LE redness and SOB and was admitted for sepsis secondary to R LE cellulitis and acute on chronic diastolic CHF. - Patient Problems (1) Acute on chronic diastolic CHF (congestive heart failure) Current Visit: Yes Status: Acute Code(s): I50.33 - ACUTE ON CHRONIC DIASTOLIC (CONGESTIVE) HEART FAILURE SNOMED Code(s): 515309713 Comment: Pt was seen by his PCP recently and his lasix dose was increased. I am trying to reach his PCPs office to get the most recent progress note. Will give lasix 40mg IV now as there continues to be marked LE edema. Likely resume home dose of lasix tomorrow. (2) Cellulitis of right leg Current Visit: Yes Status: Acute Code(s): L03.115 - CELLULITIS OF RIGHT LOWER LIMB SNOMED Code(s): 890869077 Comment: Pt septic by sepsis 2 criteria with tachycardia and fever. No evidence of severe sepsis. R LE per pt report is improved some today. There is still mild erythema and warmth. There are 2 shallow wounds on the R leg that are likely where the infection began. Will continue cefazolin. Will keep pt hospitalized overnight as he had another fever of 101.4 early this AM. Await blood cultures. (3) JENNIFER (obstructive sleep apnea) Current Visit: Yes Status: Acute Code(s): G47.33 - OBSTRUCTIVE SLEEP APNEA ( ADULT) (PEDIATRIC) SNOMED Code(s): 37459160 Comment: Continue CPAP with sleep. (4) Atrial fibrillation Current Visit: Yes Status: Acute Code(s): I48.91 - UNSPECIFIED ATRIAL FIBRILLATION SNOMED Code(s): 43878640 Comment: HR is mildly tachycardic. Continue metoprolol 25mg BID, cardizem CD 240mg daily and coumadin. INR is therapeutic. (5) COPD (chronic obstructive pulmonary disease) Current Visit: Yes Status: Acute Code(s): J44.9 - CHRONIC OBSTRUCTIVE PULMONARY DISEASE, UNSPECIFIED SNOMED Code(s): 40241937 Comment: No signs of exacerbation. Continue prn albuterol. (6) Hypertension Current Visit: Yes Status: Acute Code(s): I10 - ESSENTIAL (PRIMARY) HYPERTENSION SNOMED Code(s): 23070713 Comment: BP is under good control on metoprolol, diltiazem and lisinopril. (7) Hypothyroidism Current Visit: Yes Status: Acute Code(s): E03.9 - HYPOTHYROIDISM, UNSPECIFIED SNOMED Code(s): 05159732 Comment: TSH in appropriate range. Continue current dose of synthroid. (8) Peripheral vascular disease Current Visit: Yes Status: Acute Code(s): I73.9 - PERIPHERAL VASCULAR DISEASE, UNSPECIFIED SNOMED Code(s): 278618300 Comment: Dx noted- continue lipitor. (9) DVT prophylaxis Current Visit: Yes Status: Acute Code(s): Z29.9 - ENCOUNTER FOR PROPHYLACTIC MEASURES, UNSPECIFIED SNOMED Code(s): 376708489 Comment: therapeutic INR (10) Full code status Current Visit: Yes Status: Acute Code(s): Z78.9 - OTHER SPECIFIED HEALTH STATUS SNOMED Code(s): 864095949
[2019-05-09] MEDS ORDERED: Furosemide IV* 10 MG/ML VIAL (40 MG) IV ONE (08:27)
[2019-05-09] MEDS ORDERED: Furosemide TAB* 20 MG PO SCH (09:00)
[2019-05-09] MEDS: Diltiazem CD CAP* 240 MG PO SCH (09:21)
[2019-05-09] MEDS: Metoprolol Tartrate TAB* 25 MG PO SCH ×2 (09:22→20:37)
[2019-05-09] MEDS: Lisinopril TAB* 10 MG PO SCH (09:22)
[2019-05-09] MEDS: Atorvastatin* 10 MG TAB PO SCH (17:34)
[2019-05-09] MEDS: Warfarin TAB(*) 7.5 MG PO SCH (17:34)
[2019-05-10] MEDS: Levothyroxine TAB* 100 MCG TAB PO SCH (06:01)
[2019-05-10] MEDS: ceFAZolin 1 GM ADVAN(*) 1 GM in NS 0.9% 50 ML* 50 ML IVPB SCH (06:01)
[2019-05-10 06:23] LABS: INR 2.01 (0.82-1.09)
[2019-05-10] MEDS: Lisinopril TAB* 10 MG PO SCH (09:53)
[2019-05-10] MEDS: Diltiazem CD CAP* 240 MG PO SCH (09:53)
[2019-05-10] MEDS: Metoprolol Tartrate TAB* 25 MG PO SCH ×2 (09:54→19:23)
--- NOTE | 2019-05-10 11:17 | PN ---
Subjective Date of Service: 05/10/19 Interval History: Pt states that he is feeling better; he is eager to go home. He continues to have RLE drainage, swelling, redness. He denies pain in the area. Patient denies fever/chills.sweats in last 24 hours, but notes he had a fever early yesterday. He denies CP, SOB, abd pain, n/v/d. Objective Active Medications: Acetaminophen (Tylenol Tab*) 650 mg PO Q4H PRN Albuterol (Ventolin Hfa Inhaler*) 2 puff INH Q4H PRN Atorvastatin Calcium (Lipitor*) 10 mg PO QPM [facility] Diltiazem HCl (Cardizem Cd Cap*) 240 mg PO DAILY [facility] Cefepime HCl (Maxipime 2 Gm In Dextrose Duplex (*)) 2 gm in 50 mls @ 100 mls/ hr IV Q12H [facility] Levothyroxine Sodium (Synthroid Tab*) 100 mcg PO DAILY@0600 [facility] Lisinopril (Prinivil Tab*) 20 mg PO QAM [facility] Metoprolol Tartrate (Lopressor Tab*) 25 mg PO BID [facility] Warfarin Sodium (Coumadin Tab(*)) 5 mg PO Villarreal@1700 [facility]; Protocol Warfarin Sodium (Coumadin Tab(*)) 7.5 mg PO MoTuWeThFrSa@1700 [facility]; Protocol Vital Signs: Temp Pulse Resp BP Pulse Ox 97.7 F 84 16 141/78 95 05/10/19 03:00 05/10/19 03:00 05/10/19 03:00 05/10/19 03:00 05/10/19 03:00 Oxygen Devices in Use Now: None Appearance: Pt is sitting up in chair with LE on floor. He appears to be in no acute distress. He is cooperative, appropriate, pleasant. He has RLE with dressing in place. Eyes: No Scleral Icterus, PERRLA Ears/Nose/Mouth/Throat: NL Teeth, Lips, Gums, Mucous Membranes Moist Neck: NL Appearance and Movements; NL JVP, Trachea Midline Respiratory: Symmetrical Chest Expansion and Respiratory Effort, Clear to Auscultation Cardiovascular: NL Sounds; No Murmurs; No JVD, - - Irregular rhythm with rate control Abdominal: NL Sounds; No Tenderness; No Distention, No Hepatosplenomegaly Extremities: No Clubbing, Cyanosis, - - RLE with serosang drainage, erythema, 2 + pitting edema. LLE with trace edema. Neurological: Alert and Oriented x 3 Result Diagrams: 05/09/19 05:27 05/09/19 05:27 Microbiology and Other Data: Microbiology 05/08/19 19:17 Aerobic Blood Culture - Preliminary Blood Venous Enterobacter Horm[place]hei Anaerobic Blood Culture - Preliminary No Growth Day 1 05/08/19 18:51 Aerobic Blood Culture - Preliminary Blood Venous Enterobacter Cloacae Anaerobic Blood Culture - Preliminary No Growth Day 1 Assess/Plan/Problems-Billing Mr Raman is a 73 yo M who has a h/o atrial fibrillation, chronic diastolic CHF, JENNIFER, PVD, COPD and hypothyroidism who presented to the ER with c/o weakness ( fall), R LE redness and SOB and was admitted for sepsis secondary to R LE cellulitis and acute on chronic diastolic CHF. - Patient Problems (1) Bacteremia Comment: -BC + enterobacter -Cefazolin d/c -Start cefepime 2 q12h -ID consulted and notified (2) Cellulitis of right leg Comment: -Pt septic by sepsis 2 criteria with tachycardia and fever. No evidence of severe sepsis. R LE per pt report is improved some today. There is still mild erythema and warmth. There are 2 shallow wounds on the R leg that are likely where the infection began. -D/C cafazolin and start cefepime for cellulitis, bacteremia -BC + for enterobacter (3) Acute on chronic diastolic CHF (congestive heart failure) Comment: -Home lasix dose is 60 PO per most recent PCP office note -Pt has persistent RLE edema related to cellulitis, with LLE trace edema -Lasix 40 IV now -Transition to Lasix 60 PO tomorrow (4) Atrial fibrillation Comment: -Rate controlled -Continue metoprolol 25mg BID, cardizem CD 240mg daily and coumadin -INR is therapeutic (5) Hypertension Comment: -BP is under good control on metoprolol, diltiazem and lisinopril (6) COPD (chronic obstructive pulmonary disease) Comment: -No signs of exacerbation -Continue prn albuterol (7) Hypothyroidism Comment: -TSH in appropriate range -Continue current dose of synthroid (8) JENNIFER (obstructive sleep apnea) Comment: -Continue CPAP with sleep (9) Peripheral vascular disease Comment: -Dx noted- continue lipitor. (10) DVT prophylaxis Comment: -Therapeutic INR -Continue warfarin (11) Full code status Status and Disposition: Inpatient. Will need long-term IV antibiotics set up. Discharge when stable.
[2019-05-10] MEDS ORDERED: Furosemide IV* 10 MG/ML VIAL (40 MG) IV ONE (11:19)
[2019-05-10] MEDS: Cefepime 2 GM in Dextrose(*) 2 GM/50 ML BAG IV SCH ×2 (11:50→22:24)
[2019-05-10 16:39] LABS: Urine Appearance Clear; Urine Bacteria 1+ (Absent); Urine Bilirubin Negative (Negative); Urine Blood Negative (Negative); Urine Color Yellow; Urine Glucose Negative (Negative); Urine Ketones Negative (Negative); Urine Nitrite Negative (Negative); Urine Protein 1+(30 mg/dL) (Negative); Urine Red Blood Cell Absent (Absent); Urine Specific Gravity 1.016 (1.010-1.030); Urine Urobilinogen Negative (Negative); Urine White Blood Cell Trace(0-5/hpf) (Absent)
[2019-05-10] MEDS ORDERED: Warfarin TAB(*) 5 MG PO SCH (17:00)
[2019-05-10] MEDS: Atorvastatin* 10 MG TAB PO SCH (17:11)
[2019-05-11] MEDS: Levothyroxine TAB* 100 MCG TAB PO SCH (04:14)
[2019-05-11] MEDS ORDERED: Furosemide TAB* 20 MG PO ONE (06:00)
[2019-05-11 08:07] LABS: ABS Eosinophils 1.3 10^3/ul (0-0.6); ABS Lymphocytes 0.8 10^3/ul (1.0-4.8); ABS Monocytes 1.1 10^3/ul (0-0.8); ABS Neutrophils 4.4 10^3/ul (1.5-7.7); Eosinophil % 17.2 %; Hematocrit 35 % (42-52); Hemoglobin 11.7 g/dL (14.0-18.0); Lymphocyte % 10.9 %; Mean Corpuscular HGB Conc 33 g/dL (31-36); Mean Corpuscular Hemoglobin 31 pg (27-31); Mean Corpuscular Volume 93 fL (80-94); Mean Platelet Volume 8.5 fL (7.4-10.4); Platelet Count 154 10^3/uL (150-450); Red Blood Count 3.74 10^6 /uL (4.18-5.48); Red Cell Distribution Width 18 % (10-15); White Blood Count 7.7 10^3/uL (3.5-10.8)
[2019-05-11 08:16] LABS: INR 1.8 (0.82-1.09)
[2019-05-11 08:24] LABS: Anion Gap 8 mmol/L (2-11); BUN/Creatinine Ratio 19.1 (8-20); Blood Urea Nitrogen 17 mg/dL (6-24); CO2 Carbon Dioxide 32 mmol/L (22-32); Calcium 9.4 mg/dL (8.6-10.3); Chloride 102 mmol/L (101-111); EGFR African American 100.8 (>60); EGFR Non-African American 83.3 (>60); Glucose 106 mg/dL (70-100); Potassium 3.6 mmol/L (3.5-5.0); Sodium 142 mmol/L (135-145)
[2019-05-11 08:58] LABS: Digoxin < 0.3 ng/ml (0.8-2.0)
[2019-05-11] MEDS: Lisinopril TAB* 10 MG PO SCH (09:40)
[2019-05-11] MEDS: Metoprolol Tartrate TAB* 25 MG PO SCH ×2 (09:41→20:43)
[2019-05-11] MEDS: Diltiazem CD CAP* 240 MG PO SCH (09:41)
[2019-05-11] MEDS: Cefepime 2 GM in Dextrose(*) 2 GM/50 ML BAG IV SCH (09:41)
[2019-05-11] MEDS ORDERED: Piperacillin/Tazobac ADVAN(*) 3.375 GM in NS 0.9% 100 ML* 100 ML IVPB ONE (11:57)
--- NOTE | 2019-05-11 11:59 | PN ---
Subjective Date of Service: 05/11/19 Interval History: Pt has no complaints today. He states that he is doing well, but is eager for d /c from hospital. Discussed that he will require at least 2 weeks IV antibiotics and still determining a plan for where he will receive these. Discussed that he will be here for at least 2-3 more days for further work up and then will make plan for length of antibiotics. He and express understanding. Denies CP, SOB, abd pain, n/v/d/c. Objective Active Medications: Acetaminophen (Tylenol Tab*) 650 mg PO Q4H PRN Albuterol (Ventolin Hfa Inhaler*) 2 puff INH Q4H PRN Atorvastatin Calcium (Lipitor*) 10 mg PO QPM [facility] Diltiazem HCl (Cardizem Cd Cap*) 240 mg PO DAILY [facility] Cefepime HCl (Maxipime 2 Gm In Dextrose Duplex (*)) 2 gm in 50 mls @ 100 mls/ hr IV Q12H [facility] Levothyroxine Sodium (Synthroid Tab*) 100 mcg PO DAILY@0600 [facility] Lisinopril (Prinivil Tab*) 20 mg PO QAM [facility] Metoprolol Tartrate (Lopressor Tab*) 25 mg PO BID [facility] Warfarin Sodium (Coumadin Tab(*)) 5 mg PO Villarreal@1700 [facility]; Protocol Warfarin Sodium (Coumadin Tab(*)) 7.5 mg PO MoTuWeThFrSa@1700 [facility]; Protocol Vital Signs: Temp Pulse Resp BP Pulse Ox 97.6 F 105 20 141/68 94 05/11/19 04:00 05/11/19 04:00 05/11/19 04:00 05/11/19 04:00 05/11/19 04:00 Oxygen Devices in Use Now: None Appearance: Pt is laying in bed with HOB elevated. He appears comfortable and in no acute distress. Ears/Nose/Mouth/Throat: NL Teeth, Lips, Gums, Clear Oropharnyx, Mucous Membranes Moist Neck: NL Appearance and Movements; NL JVP, Trachea Midline Respiratory: Symmetrical Chest Expansion and Respiratory Effort, Clear to Auscultation Cardiovascular: NL Sounds; No Murmurs; No JVD, RRR Abdominal: NL Sounds; No Tenderness; No Distention, No Hepatosplenomegaly Extremities: No Clubbing, Cyanosis, - - RLE with 1-2+ pitting edema, erythema, warmth. Dressing in place to RLE. Neurological: Alert and Oriented x 3 Result Diagrams: 05/11/19 07:43 05/11/19 07:43 Microbiology and Other Data: Microbiology 05/08/19 19:17 Aerobic Blood Culture - Preliminary Blood Venous Enterobacter [place] Anaerobic Blood Culture - Preliminary No Growth Day 1 05/08/19 18:51 Aerobic Blood Culture - Preliminary Blood Venous Enterobacter Cloacae Anaerobic Blood Culture - Preliminary No Growth Day 1 Assess/Plan/Problems-Billing Mr Raman is a 73 yo M who has a h/o atrial fibrillation, chronic diastolic CHF, JENNIFER, PVD, COPD and hypothyroidism who presented to the ER with c/o weakness ( fall), R LE redness and SOB and was admitted for sepsis secondary to R LE cellulitis and acute on chronic diastolic CHF. - Patient Problems (1) Bacteremia Comment: -BC + enterobacter -ID consulted and notified; thank you for recomendations -Start Zosyn 05/11 -RAMSEY ordered -Repeat BC, wound cultures -PICC ordered (2) Cellulitis of right leg Comment: -Pt septic by sepsis 2 criteria with tachycardia and fever. No evidence of severe sepsis. R LE per pt report is improved some today. There is still mild erythema and warmth. There are 2 shallow wounds on the R leg that are likely where the infection began. -BC + for enterobacter, likely wound RLE as source of infection -Zosyn started 05/11 (3) Acute on chronic diastolic CHF (congestive heart failure) Comment: -Home lasix dose is 60 PO per most recent PCP office note -Pt has persistent RLE edema related to cellulitis; LLE edema improved -Continue Lasix 60 PO (4) Atrial fibrillation Comment: -Rate controlled -Continue metoprolol 25mg BID, cardizem CD 240mg daily and coumadin -INR is therapeutic (5) Hypertension Comment: -BP is under good control on metoprolol, diltiazem and lisinopril (6) COPD (chronic obstructive pulmonary disease) Comment: -No signs of exacerbation -Continue prn albuterol (7) Hypothyroidism Comment: -TSH in appropriate range -Continue current dose of synthroid (8) JENNIFER (obstructive sleep apnea) Comment: -Continue CPAP with sleep (9) Peripheral vascular disease Comment: -Dx noted- continue lipitor. (10) DVT prophylaxis Comment: -Therapeutic INR -Continue warfarin (11) Full code status Status and Disposition: Inpatient. Will need long-term IV antibiotics set up. Discharge when stable.
[2019-05-11] MEDS ORDERED: Zosyn per Pharmacy* NOTE FOLLOW UP SCH (12:00)
[2019-05-11] MEDS ORDERED: NS 0.9% 100 ML* 100 ML ONE (12:49)
--- NOTE | 2019-05-11 15:35 | CONS ---
CONSULTATION REPORT: DATE OF CONSULT: 05/11/19 PRIMARY CARE PROVIDER: Dr. Sumaya Gallo. PROVIDER REQUESTING CONSULTATION: BRAYDON العراقي. CONSULTING SERVICE: Infectious Disease. PROVIDER: Oksana Cornell NP. ATTENDING PROVIDER: Dr. Zan Brice.* (DICTATED BY OKSANA CORNELL NP) REASON FOR CONSULTATION: Enterobacter bacteremia. IMPRESSION: 1. Gram negative bacteremia in the setting of bovine aortic valve replacement and left total knee arthroplasty. Blood cultures positive for Enterobacter cloacae in 2/4 bottles. Initially on Clindamycin and then switched to cefepime during his hospitalization which has intermediate sensitivity. He does have a wound on his right avila. He had a transthoracic echocardiogram during his last admission on 04/13/19, no vegetation was seen on that imaging. Suspect that the source of his gram-negative bacteremia is cellulitis stemming from the right lower extremity venous stasis ulcer. He has not had any wound cultures of this area. He has been afebrile since 05/09/19 and has no leukocytosis. No peripheral stigmata of infective endocarditis. 2. Diastolic congestive heart failure. 3. Peripheral vascular disease. 4. Left total knee arthroplasty. Knee is currently benign; no swelling, effusion or pain. PLAN/RECOMMENDATIONS: Recommend discontinuing cefepime and starting Zosyn. He should have a transesophageal echocardiogram in the setting of an aortic valve replacement to better evaluate for possible vegetation. Recommend repeating blood cultures and obtaining a wound culture. Keep a close eye on the left total knee arthroplasty, the knee is currently benign. HISTORY OF PRESENT ILLNESS: Mr. Raman is a 73-year-old male with a past medical history significant for diastolic CHF, prostate cancer, status post radiation, obstructive sleep apnea, chronic atrial fibrillation, COPD, peripheral vascular disease, hypothyroidism, and basal cell carcinoma, who was hospitalized in the beginning of April for pneumonia. The patient has been following with his primary care provider who recently increased his furosemide. He was feeling short of breath and went camping with his . While camping he went outside, started not feeling well, and discussed with his that he wanted to go home , at which point he was feeling week and fell down, hitting his left shoulder on the ground. His removed his JESSIE stockings that had been placed earlier that morning and noted that his right leg was more swollen than before. He presented to the emergency room for further evaluation. While in the emergency room, he had labs with a white cell count of 8.5, platelet count of 148 which is near the patient's baseline, CRP of 63, and lactic acid 1.4. He was noted to have a venous stasis ulcer to his right lower extremity and sepsis. He was referred to the hospitalist service for admission. While in the hospital, the patient was found to have 2/4 blood culture bottles positive for Enterobacter cloacae. The patient was initially on clindamycin and then switched to cefepime while in the hospital. He has been afebrile since last temperature of 101.4 on 05/09/19. He has had no leukocytosis. He currently denies any fevers, chills, joint pain, muscle pain, nausea, vomiting, diarrhea, abdominal pain, urinary symptoms or recent travel. According to his , he previously followed with the [facility] for chronic lower extremity wounds. The wound that he currently has in his right lower extremity has been present for approximately 1 month. PAST MEDICAL HISTORY: 1. Diastolic congestive heart failure. 2. Prostate cancer, status post radiation. 3. Obstructive sleep apnea, on CPAP. 4. Chronic atrial fibrillation. 5. COPD. 6. Peripheral vascular disease. 7. Hypothyroidism. 8. Basal cell carcinoma. PAST SURGICAL HISTORY: 1. Status post bovine aortic valve replacement. 2. Status post left total knee arthroplasty. 3. Status post excision of basal cell carcinoma. MEDICATIONS: Home Medications: 1. Metoprolol tartrate 25 mg by mouth twice daily. 2. Atorvastatin 10 mg by mouth every evening. 3. Albuterol HFA inhaler 2 puffs inhalation every 4 hours as needed for shortness of breath or wheeze. 4. Diltiazem HCL 240 mg by mouth daily. 5. Furosemide 60 mg by mouth daily. 6. Warfarin 7.5 mg by mouth on Saturday, Saturday, Saturday, , Saturday, Saturday, and 5 mg by mouth on Saturday by mouth. 7. Lisinopril 20 mg by mouth daily. 8. Levothyroxine 100 mcg by mouth daily Hospital medications: 1. Acetaminophen 650 mg by mouth every 4 hours as needed for fever or pain. 2. Albuterol HFA inhaler 2 puffs inhalation every 4 hours as needed for shortness of breath or wheeze. 3. Atorvastatin 10 mg by mouth every evening. 4. Diltiazem CD 240 mg by mouth daily. 5. Levothyroxine 100 mcg by mouth daily. 6. Lisinopril 20 mg by mouth every morning. 7. Metoprolol tartrate 25 mg by mouth twice daily. 8. Warfarin 5 mg by mouth on Saturday, 7.5 mg by mouth on Saturday, Saturday, Saturday, , Saturday, Saturday. 9. Cefepime 2 g IV q.12 hours. ALLERGIES: No known drug allergies. FAMILY HISTORY: Denies any family history of recurrent resistant infections other than chronic lower extremity infections due to venous stasis ulcers in family members. Mother with history of heart disease. No family history of diabetes mellitus. Sister with unknown cancer. Brother with the history of lung cancer and another brother with history of brain cancer. SOCIAL HISTORY: He occasionally drinks alcohol. He is former smoker, he quit smoking over 20 years ago. Denies recreational drug use. REVIEW OF SYSTEMS: I performed a 10-point review of systems. All the pertinent positives and negatives are mentioned in the history of present illness. The remaining review of systems are negative. PHYSICAL EXAMINATION: Vital Signs: Temperature 97.6, heart rate 105, respiratory rate 20, O2 sat 94% on 2 L via nasal canula, blood pressure 114/61. General Appearance: Alert and pleasant, appears to be in no acute distress. Head: Normocephalic, atraumatic. ENT: Pupils are equal and reactive to light. Extraocular movements are intact. No subconjunctival hemorrhage. Moist mucous membranes. Neck: Supple. No lymphadenopathy. Neurological: Alert and oriented x3. Cranial nerves II through XII are grossly intact. Cardiovascular : Heart rate is irregularly irregular. No murmurs, rubs or gallops heard. Respiratory: No accessory muscle use. Lungs: Clear to auscultation bilaterally. Abdomen: Bowel sounds present. Abdomen is soft, large, nontender , and nondistended. Extremities: There is 2+ bilateral lower extremity edema. Musculoskeletal: No clubbing or cyanosis noted. Good strength in all extremities. There is no effusion, crepitus or pain with palpation of the left knee. He has full range of motion of the left knee. No tenderness with palpation of the back or spine. Psychological: Calm and cooperative. Skin: There are no rashes seen. He has chronic venous stasis skin changes to bilateral lower extremities. Additionally, he has a venous stasis ulcer to his right avila, approximately 2.5 x 2 cm, with slough in the wound base. There is significant amount of serous drainage from the wound. The patient is also noted to have redness to his posterior thigh and some erythema to lower extremities. No splinter hemorrhages noted. DIAGNOSTIC STUDIES/LAB DATA: Sodium 142, potassium 3.6, chloride 102, CO2 of 32 , BUN 17, creatinine 0.89, glucose 106. White blood cell count 7.7, hemoglobin 11.7, hematocrit 35, platelet count 174. CRP from 05/08/19 of 63.34. Blood cultures from 05/08/19 with 2/4 bottles positive for Enterobacter cloacae. Please see impression and recommendations outlined above, recommendations have been discussed with BRAYDON العراقي. Thank you for asking us to see Mr. Raman in consultation. The case has been reviewed with my attending, Dr. Zan Brice, who agrees with the plan of care. Reviewed by OKSANA CORNELL, DOUG-Shawna 05/16/19 2109 [id number]/[facility] #: [id number] CHRISTIAN
[2019-05-11] MEDS: ZOSYN 3.375 GM Q8H per EXTENDED INFUSION IVPB SCH ×2 (17:23)
[2019-05-11] MEDS: Atorvastatin* 10 MG TAB PO SCH (17:23)
[2019-05-11] MEDS: Warfarin TAB(*) 7.5 MG PO SCH (17:23)
[2019-05-12] MEDS: ZOSYN 3.375 GM Q8H per EXTENDED INFUSION IVPB SCH ×6 (01:34→16:32)
[2019-05-12] MEDS: Levothyroxine TAB* 100 MCG TAB PO SCH (05:21)
[2019-05-12] MEDS ORDERED: Midazolam* 1 MG/ML 5 ML VIAL (5 MG) ONE (08:29)
[2019-05-12] MEDS ORDERED: Flumazenil* 0.1 MG/ML 5 ML MDV ONE (08:30)
[2019-05-12] MEDS ORDERED: fentaNYL* 50 MCG/ML 2 ML VIAL (100 MCG VIAL) ONE (08:30)
[2019-05-12] MEDS ORDERED: Naloxone* 0.4 MG/ML 1 ML VIAL ONE (08:30)
[2019-05-12] MEDS ORDERED: Lidocaine 2% VISCOUS* 15 ML UDC ONE (08:30)
[2019-05-12] MEDS: Metoprolol Tartrate TAB* 25 MG PO SCH ×2 (10:11→21:03)
[2019-05-12] MEDS: Lisinopril TAB* 10 MG PO SCH (10:11)
[2019-05-12] MEDS: Diltiazem CD CAP* 240 MG PO SCH (10:11)
--- NOTE | 2019-05-12 10:25 | PN ---
Subjective Date of Service: 05/12/19 Interval History: Evaluated in bed with at bedside. Patient had RAMSEY this morning. Patient reports he feels "great" and is hoping to go home soon. Denies fever, chills, sob, cp, palpitations. Objective Active Medications: Acetaminophen (Tylenol Tab*) 650 mg PO Q4H PRN PRN Reason: FEVER/PAIN Last Admin: 05/11/19 04:13 Dose: 650 mg Albuterol (Ventolin Hfa Inhaler*) 2 puff INH Q4H PRN PRN Reason: SOB/WHEEZING Atorvastatin Calcium (Lipitor*) 10 mg PO QPM [facility] Last Admin: 05/11/19 17:23 Dose: 10 mg Diltiazem HCl (Cardizem Cd Cap*) 240 mg PO DAILY [facility] Last Admin: 05/12/19 10:11 Dose: 240 mg Piperacillin Sod/Tazobactam (Sod 3.375 gm/ Sodium Chloride) 100 mls @ 25 mls/ hr IVPB Q8H [facility] Last Admin: 05/12/19 10:12 Dose: 25 mls/hr Levothyroxine Sodium (Synthroid Tab*) 100 mcg PO DAILY@0600 [facility] Last Admin: 05/12/19 05:21 Dose: 100 mcg Lisinopril (Prinivil Tab*) 20 mg PO QAM [facility] Last Admin: 05/12/19 10:11 Dose: 20 mg Metoprolol Tartrate (Lopressor Tab*) 25 mg PO BID [facility] Last Admin: 05/12/19 10:11 Dose: 25 mg Pharmacy Consult (Zosyn Per Pharmacy*) 1 note FOLLOW UP .ZOSYN PER PHARMACY [facility] Warfarin Sodium (Coumadin Tab(*)) 5 mg PO Villarreal@1700 [facility]; Protocol Last Admin: 05/10/19 17:10 Dose: 5 mg Warfarin Sodium (Coumadin Tab(*)) 7.5 mg PO MoTuWeThFrSa@1700 [facility]; Protocol Last Admin: 05/11/19 17:23 Dose: 7.5 mg Vital Signs - 8 hr 05/12/19 05/12/19 05/12/19 03:44 07:00 07:43 Temperature 98 F 98.4 F Pulse Rate 88 89 87 Respiratory 18 18 21 Rate Blood Pressure 136/60 99/56 143/73 (mmHg) O2 Sat by Pulse 91 90 92 Oximetry 05/12/19 05/12/19 05/12/19 07:48 07:53 07:58 Temperature Pulse Rate 89 90 92 Respiratory 14 15 Rate Blood Pressure 141/94 123/86 137/71 (mmHg) O2 Sat by Pulse 92 91 91 Oximetry 05/12/19 05/12/19 05/12/19 08:00 08:03 08:37 Temperature Pulse Rate 88 91 89 Respiratory Rate Blood Pressure 143/108 153/79 (mmHg) O2 Sat by Pulse 92 90 91 Oximetry 05/12/19 05/12/19 05/12/19 08:52 08:57 09:00 Temperature Pulse Rate 96 95 87 Respiratory Rate Blood Pressure 137/109 144/107 (mmHg) O2 Sat by Pulse 90 87 91 Oximetry 05/12/19 05/12/19 05/12/19 09:03 09:08 09:12 Temperature Pulse Rate 88 90 87 Respiratory Rate Blood Pressure 128/95 123/80 117/79 (mmHg) O2 Sat by Pulse 94 95 94 Oximetry 05/12/19 09:17 Temperature Pulse Rate 92 Respiratory Rate Blood Pressure 120/69 (mmHg) O2 Sat by Pulse 93 Oximetry Oxygen Devices in Use Now: None Appearance: Comfortable, NAD Eyes: No Scleral Icterus Ears/Nose/Mouth/Throat: Clear Oropharnyx, Mucous Membranes Moist Neck: NL Appearance and Movements; NL JVP Respiratory: Symmetrical Chest Expansion and Respiratory Effort, Clear to Auscultation Cardiovascular: NL Sounds; No Murmurs; No JVD, RRR, - - Bilateral pitting edema LE edema. Right > Left Abdominal: NL Sounds; No Tenderness; No Distention Lymphatic: No Cervical Adenopathy Extremities: - - Bilateral pitting edema LE edema. Right > Left Skin: - - Wound to RLE that is draining clear/yellowish drainage. Small 1/2 dime sized open area anterior right avila Neurological: Alert and Oriented x 3 Nutrition: Taking PO's Result Diagrams: 05/12/19 10:43 05/12/19 10:43 Additional Lab and Data: Laboratory Results - last 24 hr 05/12/19 05/12/19 05/12/19 10:43 10:43 10:43 WBC 6.9 RBC 3.89 L Hgb 12.0 L Hct 36 L MCV 94 MCH 31 MCHC 33 RDW 18 H Plt Count 179 MPV 8.8 Neut % (Auto) 48.8 Lymph % (Auto) 15.2 Rabun % (Auto) 16.4 Eos % (Auto) 18.5 Baso % (Auto) 1.1 Absolute Neuts (auto) 3.4 Absolute Lymphs (auto) 1.1 Absolute Monos (auto) 1.1 H Absolute Eos (auto) 1.3 H Absolute Basos (auto) 0.1 Absolute Nucleated RBC 0.0 Nucleated RBC % 0.1 INR (Anticoag Therapy) 1.76 H Sodium 144 Potassium 3.9 Chloride 104 Carbon Dioxide 32 Anion Gap 8 BUN 16 Creatinine 0.81 Est GFR ( Amer) 112.4 Est GFR (Non-Af Amer) 92.9 BUN/Creatinine Ratio 19.8 Glucose 97 Calcium 10.0 Total Bilirubin 0.80 AST 28 ALT 25 Alkaline Phosphatase 181 H Total Protein 6.6 Albumin 3.9 Globulin 2.7 Albumin/Globulin Ratio 1.4 Microbiology and Other Data: Microbiology 05/08/19 19:17 Aerobic Blood Culture - Preliminary Blood Venous Enterobacter Hormaechei Anaerobic Blood Culture - Preliminary No Growth Day 1 05/08/19 18:51 Aerobic Blood Culture - Preliminary Blood Venous Enterobacter Cloacae Anaerobic Blood Culture - Preliminary No Growth Day 1 Assess/Plan/Problems-Billing Mr Raman is a 73 yo M who has a h/o atrial fibrillation, chronic diastolic CHF, JENNIFER, PVD, COPD and hypothyroidism who presented to the ER with c/o weakness ( fall), R LE redness and SOB and was admitted for sepsis secondary to R LE cellulitis and acute on chronic diastolic CHF. - Patient Problems (1) Cellulitis of right leg Comment: - Met sepsis criteria on admission with tachycardia and fever. No evidence of severe sepsis. - Source likely RLE - Zosyn started 05/11 - ID consulting (2) Bacteremia Comment: - Repeat blood cultures that were drawn last night have initially no growth. Continue to monitor - Initial BC + enterobacter - ID consulting; thank you for recomendations - Cont Zosyn 05/11 - RAMSEY reveals no evidence of vegetation. (3) Acute on chronic diastolic CHF (congestive heart failure) Comment: - Weight close to admission weight - Home lasix dose is 60 PO per most recent PCP office note - Pt has persistent pitting RLE edema related to cellulitis; LLE edema improved - Continue Lasix 60 PO - Cont daily weights and I&Os (4) Atrial fibrillation Comment: - Rate controlled - Continue metoprolol 25mg BID, cardizem CD 240mg daily and coumadin - INR slight subtherapeutic - Coumadin per pharmacy ordered (5) COPD (chronic obstructive pulmonary disease) Comment: - No signs of exacerbation - Continue prn albuterol (6) Hypertension Current Visit: Yes Status: Acute Code(s): I10 - ESSENTIAL (PRIMARY) HYPERTENSION SNOMED Code(s): 00512808 Comment: - Normotensive - Continue metoprolol, diltiazem and lisinopril (7) Hypothyroidism Comment: - TSH in appropriate range - Continue current dose of synthroid (8) JENNIFER (obstructive sleep apnea) Comment: - Continue CPAP with sleep (9) Peripheral vascular disease Status: Acute Comment: - Continue lipitor. (10) PFO (patent foramen ovale) Comment: - Found on RAMSEY - On coumadin due to afib (11) Full code status (12) DVT prophylaxis Comment: - Continue warfarin per pharmacy protocol Status and Disposition: Inpatient. Will need long-term IV antibiotics set up. Discharge when stable. Attending: Apolinar Grimes
[2019-05-12 11:20] LABS: ABS Basophils 0.1 10^3/ul (0-0.2); ABS Eosinophils 1.3 10^3/ul (0-0.6); ABS Lymphocytes 1.1 10^3/ul (1.0-4.8); ABS Monocytes 1.1 10^3/ul (0-0.8); ABS Neutrophils 3.4 10^3/ul (1.5-7.7); Eosinophil % 18.5 %; Hematocrit 36 % (42-52); Lymphocyte % 15.2 %; Mean Corpuscular HGB Conc 33 g/dL (31-36); Mean Corpuscular Hemoglobin 31 pg (27-31); Mean Corpuscular Volume 94 fL (80-94); Mean Platelet Volume 8.8 fL (7.4-10.4); Nucleated Red Blood Cells % 0.1; Platelet Count 179 10^3/uL (150-450); Red Blood Count 3.89 10^6 /uL (4.18-5.48); Red Cell Distribution Width 18 % (10-15); White Blood Count 6.9 10^3/uL (3.5-10.8)
[2019-05-12 11:50] LABS: Albumin 3.9 g/dL (3.2-5.2); Albumin/Globulin Ratio 1.4 (1-3); BUN/Creatinine Ratio 19.8 (8-20); EGFR African American 112.4 (>60); EGFR Non-African American 92.9 (>60); Globulin 2.7 g/dL (2-4); Potassium 3.9 mmol/L (3.5-5.0); Total Bilirubin 0.8 mg/dL (0.2-1.0); Total Protein 6.6 g/dL (6.4-8.9)
[2019-05-12 11:51] LABS: INR 1.76 (0.82-1.09)
--- NOTE | 2019-05-12 12:42 | TEE ---
*[facility]* [place] [address] Fax #: [phone] Transesophageal Echocardiogram Patient: Ha Raman : 1945 Study Date: 05/12/2019 Age: 73 Gender: M HR: 82 bpm Height: 72 in /182.9 cm BSA: 2.58 m^2 Weight: 314.3 lb /142.9 kg BMI: 42.7 kg/m^2 *Non Cdl Driver: * Carlene Brito [facility] *Referring Physician: * Muriel Wright *Reading Physician: * Hernandez Riley MD Indications: Bacteremia. History: Atrial fibrillation. Congestive heart failure. Chronic obstructive pulmonary disease. Risk factors: Hypertension. Obese. Dyslipidemia. Labs, prior tests, procedures, and surgery: Aortic valve replacement with a bioprosthetic valve. Conclusions Summary: - Left ventricle: Systolic function is normal. The estimated ejection fraction is 55-60%. - Left atrium: The appendage appears to be ligated. - Atrial septum: A PFO is demonstrated by color Doppler. - Mitral valve: There is no evidence of a vegetation. The findings are consistent with mild stenosis. There is mild regurgitation. - Aortic valve: The leaflets are normal thickness. There is no evidence of a vegetation. There is no evidence of stenosis. There is no significant regurgitation. - Tricuspid valve: There is no evidence of a vegetation. - Pericardium, extracardiac: There is no significant pericardial effusion. Study data: Diagnostic Transesophageal Echocardiogram Consent: The risks and benefits of the procedure, including alternatives were discussed with the patient and/or their health care digital sales representative and written informed consent was obtained. Procedure: Initial setup: The patient was brought to the laboratory in the fasting state.Intravenous access was obtained. Surface ECG leads, heart rate, heart rhythm, blood pressure measurements, pulse oximetric signals, and mainstream end-tidal CO2 tracings were monitored throughout the procedure. Sedation. Moderate sedation was administered by nursing staff. History and physical as well as labs were reviewed. An oral bite block was inserted for protection of oral dentition. The patient was placed in the left lateral decubitus position. Topical anesthesia was obtained using viscous lidocaine. A transesophageal probe was inserted by the attending blood bank technologist. Transesophageal echocardiography was performed, image quality was good, and all standard views were attempted within the limitations of patient tolerance and safety. Multiple 2D, color flow Doppler and spectral Doppler images were obtained. The transesophageal probe was removed. Location: Procedure room. Patient status: Inpatient. Patient room number: 413 02. Study completion: The patient tolerated the procedure well. There were no complications. Administered medications: Midazolam, 4mg. Fentanyl, 50mcg. Findings Left ventricle: The cavity size is normal. Wall thickness is moderately increased. Systolic function is normal. The estimated ejection fraction is 55-60%. Right ventricle: The cavity size is mildly dilated. Systolic function is mildly reduced. Left atrium: The atrium is severely dilated. The appendage appears to be ligated. There is no evidence of a thrombus in the atrial cavity or appendage. Right atrium: The atrium is severely dilated. Atrial septum: A PFO is demonstrated by color Doppler. Mitral valve: Is mildly calcified. The leaflets are mildly thickened. Mobility is restricted. There is no evidence of a vegetation. The findings are consistent with mild stenosis. There is mild regurgitation. Aortic valve: There is a bioprosthetic valve. The leaflets are normal thickness. Cusp separation is normal. There is no evidence of a vegetation. There is no evidence of stenosis. There is no significant regurgitation. Tricuspid valve: The leaflets are normal thickness. There is no evidence of a vegetation. There is no evidence of stenosis. There is mild-moderate regurgitation. Pulmonic valve: There is no evidence of a vegetation. There is no evidence of stenosis. There is no significant regurgitation. Aorta: Aortic root: The aortic root is upper normal in size. Ascending aorta: The ascending aorta is moderately dilated. Aortic arch: The aortic arch is calcified. Descending aorta: The descending aorta is calcified. Pericardium: There is no significant pericardial effusion. Pulmonary arteries: Not well visualized. Systemic veins: Inferior vena cava: The vessel is normal in size. Superior vena cava: The vessel is appears normal. Pulmonary veins: The Pulmonary veins appear normal. The flow of the pulmonary veins appears normal. Measurements Aortic valve Value Ref Mitral valve continued Value Ref July diam, ED 2.3 cm ---- Peak grad, D 10.5 mm Hg ---- Peak v, S 2.35 m/sec ---- Peak E/A ratio 30.6 ---- Peak grad, S 22.0 mm Hg ---- Aortic root Value Ref Mitral valve Value Ref Root diam 3.5 cm <4.6 Peak E 1.62 m/sec ---- Peak A 0.05 m/sec ---- Ascending aorta Value Ref Decel time 181 ms ---- AAo AP diam, S 4.4 cm ---- Legend: (L) and (H) cordell values outside specified reference range. Prepared and electronically signed by Hernandez Riley MD 05/12/2019 12:42
[2019-05-12] MEDS: Warfarin TAB(*) 7.5 MG PO SCH (16:23)
[2019-05-12] MEDS: Atorvastatin* 10 MG TAB PO SCH (16:23)
--- NOTE | 2019-05-12 17:08 | CONSULT ---
Subjective Date of Service: 05/12/19 Interval History: Mr. Raman is a 73 yo male with PMH significant for D CHF, prostate CA s/p radiation, JENNIFER, C A fib, COPD, PVD, hypothyroidism, and basal cell skin cancer; who presented to the hospital with complaints of shortness of breath and bilateral LE edema. He was found to have enterobacter bacteremia, with a suspected source of the right LE. According to the patient the wound on his right lower leg has been present for approximately 1 month. He was seen by the [facility] and the [facility] wound center in the past, but those wounds healed up. Patient seen and examined at bedside. Family History: Unchanged from Admission Social History: Unchanged from Admission Past Medical History: Unchanged from Admission Review of Systems - Measurements Intake and Output: Intake and Output Last 24 Hours 05/10/19 05/11/19 05/12/19 05/13/19 06:59 06:59 06:59 06:59 Intake Total 2249 2290 2202 75 Balance 2249 2290 2202 75 Weight 315 lb 6.4 oz 305 lb 8 oz Intake: IV Fluids 44 20 260 75 ABX - CEFEPIME 100 ABX - ZOSYN 115 NS (0.9%) 40 20 45 IVPB 165 110 362 ABX - CEFEPIME 110 ABX - ZOSYN 112 NS (0.9%) 250 cefazolin 165 Oral 2040 2160 1580 0 Other: Estimated Void Medium Medium Date of Last Bowel 05/07/19 [id number] 05/12/19 Movement # Bowel Movements 0 1 2 Estimated Stool Amount Large Medium # Voids 1 3 4 - Review of Systems Constitutional Symptoms: Negative: Fever, Other - Chills Dermatology: Positive: Other - Open wound to the right lower leg Objective Active Medications: Acetaminophen (Tylenol Tab*) 650 mg PO Q4H PRN Reason: FEVER/PAIN Albuterol (Ventolin Hfa Inhaler*) 2 puff INH Q4H PRN Reason: SOB/WHEEZING Atorvastatin Calcium (Lipitor*) 10 mg PO QPM [facility] Diltiazem HCl (Cardizem Cd Cap*) 240 mg PO DAILY [facility] Piperacillin Sod/Tazobactam (Sod 3.375 gm/ Sodium Chloride) 100 mls @ 25 mls/ hr IVPB Q8H [facility] Levothyroxine Sodium (Synthroid Tab*) 100 mcg PO DAILY@0600 [facility] Lisinopril (Prinivil Tab*) 20 mg PO QAM [facility] Metoprolol Tartrate (Lopressor Tab*) 25 mg PO BID [facility] Pharmacy Consult (Zosyn Per Pharmacy*) 1 note FOLLOW UP .ZOSYN PER PHARMACY [facility] Warfarin Sodium (Coumadin Tab(*)) 5 mg PO Villarreal@1700 [facility]; Protocol Warfarin Sodium (Coumadin Tab(*)) 7.5 mg PO MoTuWeThFrSa@1700 [facility]; Protocol Vital Signs 05/12/19 05/12/19 11:00 11:19 Temperature 97.3 F 97.9 F Pulse Rate 72 88 Respiratory 24 24 Rate Blood Pressure 103/70 130/73 (mmHg) O2 Sat by Pulse 100 100 Oximetry Oxygen Devices in Use Now: None Appearance: NAD, laying in bed Ears/Nose/Mouth/Throat: Mucous Membranes Moist Respiratory: Symmetrical Chest Expansion and Respiratory Effort Extremities: - - Bilateral LE edema, 2+. Bilateral DP 1+. Skin: - - See skin note below. Bilateral LEs with chronic skin discoloration. Neurological: Alert and Oriented x 3 Nutrition: Taking PO's Result Diagrams: 05/12/19 10:43 05/12/19 10:43 Microbiology and Other Data: Microbiology 05/11/19 13:38 Aerobic Blood Culture - Preliminary Blood Venous No Growth Day 1 Anaerobic Blood Culture - Preliminary No Growth Day 1 05/11/19 13:15 Aerobic Blood Culture - Preliminary Blood Venous No Growth Day 1 Anaerobic Blood Culture - Preliminary No Growth Day 1 05/08/19 19:17 Aerobic Blood Culture - Final Blood Venous Enterobacter Cloacae Complex Anaerobic Blood Culture - Preliminary No Growth Day 3 05/08/19 18:51 Aerobic Blood Culture - Final Blood Venous Enterobacter Cloacae Anaerobic Blood Culture - Preliminary No Growth Day 3 05/10/19 16:27 Urine Culture - Final Urine No Growth (<1,000 CFU/mL) Diagnostic Imaging: Exam Date: 05/12/19 1059 - VL LOWER EXT VEINS RIGHT IMPRESSION: NO RIGHT LOWER EXTREMITY DEEP VEIN THROMBOSIS Skin Deviation Note - Skin Deviation Findings Right lower leg - There is a wound measuring 3.2 cm x 2.2 cm x 0.1 cm. The wound base is red granulation tissue and yellow slough. The periwound is slightly macerated (but improved from yesterday). There is mild surrounding erythema. There is a large amount of serous drainage from the site. There is also a traumatic wound to the lateral aspect of the leg, this wound measures 3 cm x 0.6 cm x 0.1 cm. The wound base is scabbed. The surrounding skin is intact. Assessment/Plan: Mr. Raman is a 73 yo male with PMH significant for D CHF, prostate CA s/p radiation, JENNIFER, C A fib, COPD, PVD, hypothyroidism, and basal cell skin cancer; who presented to the hospital with complaints of shortness of breath and bilateral LE edema. He was found to have enterobacter bacteremia, with a suspected source of the right LE. 1. Right Lower extremity wounds. Suspect the anterior wound represents a venous stasis ulcer and the lateral wound is a traumatic wound. Consider ABIs to evaluate circulation in the the leg. Apply calcium alginate to the open area, followed by an ABD pad, and rolled gauze, changing the dressing daily and as needed. If the leg continues to have a large amount of serous drainage, consider leaving the wound open to air, as the skin is already slightly macerated from drainage. 2. Right LE cellulitis. Management per ID and primary team 3. Acute on chronic diastolic CHF. This is contributing to poor wound healing. Management per primary team. 4. Peripheral vascular disease. 5. Diet. Heart Healthy diet. 6. Code Status. Full Code status. 7. Disposition. Inpatient, disposition per primary team. TIME SPENT: Time for this wound consultation was 25 minutes and 15 minutes was spent with the patient discussing past medical history; removing old dressing; assessing, measuring, and photographing the wound; reapplying the dressing. Wound Problem/Plan Is Patient a Wound Clinic Patient: No Attending: Nadia Velasquez
[2019-05-12] MEDS ORDERED: Warfarin TAB(*) 2 MG PO ONE (22:30)
[2019-05-13] MEDS: ZOSYN 3.375 GM Q8H per EXTENDED INFUSION IVPB SCH ×4 (01:38→08:50)
[2019-05-13] MEDS: Levothyroxine TAB* 100 MCG TAB PO SCH (05:15)
[2019-05-13 06:32] LABS: INR 1.8 (0.82-1.09)
[2019-05-13] MEDS: Metoprolol Tartrate TAB* 25 MG PO SCH (08:49)
[2019-05-13] MEDS: Diltiazem CD CAP* 240 MG PO SCH (08:50)
[2019-05-13] MEDS: Lisinopril TAB* 10 MG PO SCH (08:50)
--- NOTE | 2019-05-13 14:44 | PN ---
Progress Note - Progress Note Date of Service: 05/13/19 SOAP: Subjective: CC: LE wound and weeping edema. HPI: Mr. Raman is a 73 yo male with PMH significant for D CHF, prostate CA, JENNIFER, C afib, COPD, PVD, hypothyroidism, and basal cell skin CA; who presented to the hospital for weakness and right LE wound. Denies fever, chills, nausea, vomiting , or diarrhea. He reports feeling well and is anxious for discharge home. Continues to have a significant amount of drainage from the right LE wound. Objective: Vital Signs - 8 hr 05/13/19 08:00 Temperature 98.3 F Pulse Rate 96 Respiratory 20 Rate Blood Pressure 140/64 (mmHg) O2 Sat by Pulse 94 Oximetry Physical Exam: General: NAD, sitting up on the side of the bed Neurological: Alert and Oriented x3 HEENT: Moist MM, no thrush Cardiovascular: Heart rate irregular, 1-2+ bilateral LE edema Respiratory: Lung sounds clear Abdominal: Bowel sounds present; ABD soft, non tender and non distended MSK: No tenderness with palpation of the left knee, no edema or effusion. Full ROM. NO tenderness with palpation of the neck, back or spine. Skin: No rash. Venous ulcer to the anterior right lower leg, the periwound is macerated, surrounding skin with mild erythema and chronic skin changes to bilateral LE. Laboratory Last Values WBC 6.9 10^3/uL (3.5-10.8) 05/12/19 10:43 RBC 3.89 10^6 /uL (4.18-5.48) L 05/12/19 10:43 Hgb 12.0 g/dL (14.0-18.0) L 05/12/19 10:43 Hct 36 % (42-52) L 05/12/19 10:43 MCV 94 fL (80-94) 05/12/19 10:43 MCH 31 pg (27-31) 05/12/19 10:43 MCHC 33 g/dL (31-36) 05/12/19 10:43 RDW 18 % (10-15) H 05/12/19 10:43 Plt Count 179 10^3/uL (150-450) 05/12/19 10:43 MPV 8.8 fL (7.4-10.4) 05/12/19 10:43 Neut % (Auto) 48.8 % 05/12/19 10:43 Lymph % (Auto) 15.2 % 05/12/19 10:43 [place] % (Auto) 16.4 % 05/12/19 10:43 Eos % (Auto) 18.5 % 05/12/19 10:43 Baso % (Auto) 1.1 % 05/12/19 10:43 Absolute Neuts (auto) 3.4 10^3/ul (1.5-7.7) 05/12/19 10:43 Absolute Lymphs (auto) 1.1 10^3/ul (1.0-4.8) 05/12/19 10:43 Absolute Monos (auto) 1.1 10^3/ul (0-0.8) H 05/12/19 10:43 Absolute Eos (auto) 1.3 10^3/ul (0-0.6) H 05/12/19 10:43 Absolute Basos (auto) 0.1 10^3/ul (0-0.2) 05/12/19 10:43 Absolute Nucleated RBC 0.0 10^3/ul 05/12/19 10:43 Nucleated RBC % 0.1 05/12/19 10:43 INR (Anticoag Therapy) 1.80 (0.82-1.09) H 05/13/19 05:52 Sodium 144 mmol/L (135-145) 05/12/19 10:43 Potassium 3.9 mmol/L (3.5-5.0) 05/12/19 10:43 Chloride 104 mmol/L (101-111) 05/12/19 10:43 Carbon Dioxide 32 mmol/L (22-32) 05/12/19 10:43 Anion Gap 8 mmol/L (2-11) 05/12/19 10:43 BUN 16 mg/dL (6-24) 05/12/19 10:43 Creatinine 0.81 mg/dL (0.67-1.17) 05/12/19 10:43 Est GFR ( Amer) 112.4 (>60) 05/12/19 10:43 Est GFR (Non-Af Amer) 92.9 (>60) 05/12/19 10:43 BUN/Creatinine Ratio 19.8 (8-20) 05/12/19 10:43 Glucose 97 mg/dL (70-100) 05/12/19 10:43 Lactic Acid 1.4 mmol/L (0.5-2.0) 05/08/19 18:51 Calcium 10.0 mg/dL (8.6-10.3) 05/12/19 10:43 Magnesium 2.1 mg/dL (1.9-2.7) 05/08/19 18:51 Total Bilirubin 0.80 mg/dL (0.2-1.0) 05/12/19 10:43 AST 28 U/L (13-39) 05/12/19 10:43 ALT 25 U/L (7-52) 05/12/19 10:43 Alkaline Phosphatase 181 U/L (34-104) H 05/12/19 10:43 Troponin I 0.01 ng/mL (<0.04) 05/08/19 18:51 C-Reactive Protein 63.34 mg/L (<8.01) H 05/08/19 18:51 B-Natriuretic Peptide 290 pg/mL (<=100) H 05/08/19 18:51 Total Protein 6.6 g/dL (6.4-8.9) 05/12/19 10:43 Albumin 3.9 g/dL (3.2-5.2) 05/12/19 10:43 Globulin 2.7 g/dL (2-4) 05/12/19 10:43 Albumin/Globulin Ratio 1.4 (1-3) 05/12/19 10:43 TSH 3.08 mcIU/mL (0.34-5.60) 05/08/19 18:51 Urine Color Yellow 05/10/19 16:27 Urine Appearance Clear 05/10/19 16:27 Urine pH 6.0 (5-9) 05/10/19 16:27 Ur Specific [place] 1.016 (1.010-1.030) 05/10/19 16:27 Urine Protein 1+(30 mg/dl) (Negative) A 05/10/19 16:27 Urine Ketones Negative (Negative) 05/10/19 16:27 Urine Blood Negative (Negative) 05/10/19 16:27 Urine Nitrate Negative (Negative) 05/10/19 16:27 Urine Bilirubin Negative (Negative) 05/10/19 16:27 Urine Urobilinogen Negative (Negative) 05/10/19 16:27 Ur Leukocyte Esterase Trace (Negative) A 05/10/19 16:27 Urine WBC (Auto) Trace(0-5/hpf) (Absent) 05/10/19 16:27 Urine RBC (Auto) Absent (Absent) 05/10/19 16:27 Urine Bacteria 1+ (Absent) A 05/10/19 16:27 Urine Glucose Negative (Negative) 05/10/19 16:27 Digoxin < 0.3 ng/ml (0.8-2.0) L 05/11/19 07:43 Microbiology 05/11/19 13:38 Aerobic Blood Culture - Preliminary Blood Venous No Growth Day 2 Anaerobic Blood Culture - Preliminary No Growth Day 2 05/11/19 13:15 Aerobic Blood Culture - Preliminary Blood Venous No Growth Day 2 Anaerobic Blood Culture - Preliminary No Growth Day 2 05/08/19 19:17 Aerobic Blood Culture - Final Blood Venous Enterobacter Cloacae Complex Anaerobic Blood Culture - Preliminary No Growth Day 4 05/08/19 18:51 Aerobic Blood Culture - Final Blood Venous Enterobacter Cloacae Anaerobic Blood Culture - Preliminary No Growth Day 4 05/10/19 16:27 Urine Culture - Final Urine No Growth (<1,000 CFU/mL) Assessment: 1. Enterobacter bacteremia. In the setting of a prosthetic AV and left TKA. RAMSEY without evidence for vegetation, no peripheral stigmata of endocarditis. Left knee is benign, no effusion noted and full ROM. Urine culture with no growth. Suspect that the source of infection is the right LE cellulitis and venous stasis ulcer. Afebrile and no leukocytosis. Repeat blood cultures with no growth. 2. Right LE cellulitis. Venous stasis ulcer present. Hx PVD. 3. D CHF. Suspect this is contributing to the LE edema and weeping from the wound Plan: Continue Zosyn while in the hospital, day 3. When ready for discharge; discharge home on Bactrim DS 1 tablet BID to complete a 14 day course of ABX. Recommend considering decreasing Lisinopril while on Bactrim to decrease risk of THERON and hyperkalemia. Should followup with the [facility] center at discharge. Encourage to keep right leg elevated to help with the edema.
[2019-05-13] MEDS ORDERED: Warfarin TAB(*) 4 MG PO ONE (17:00)
[2019-05-13 17:43] VITALS: BP 132/61
--- NOTE | 2019-05-13 23:42 | DS ---
CC: Dr. Gallo * DISCHARGE SUMMARY: DATE OF ADMISSION: 05/08/19 DATE OF DISCHARGE: 05/13/19 PRIMARY CARE PROVIDER: Dr. Gallo. ATTENDING PHYSICIAN: Dr. Grimes * (dictated by Arabella Womack NP). PRIMARY DIAGNOSES: 1. Cellulitis of right leg. 2. Bacteremia. 3. Acute on chronic congestive heart failure. 4. Atrial fibrillation. 5. Chronic obstructive pulmonary disease. 6. Hypertension. 7. Hypothyroid. 8. Obstructive sleep apnea. 9. Peripheral vascular disease. 10. Patent foramen ovale. STUDIES WHILE IN THE HOSPITAL: 1. EKG: Atrial fibrillation. 2. Chest x-ray: The chest x-ray findings are most consistent with cardiogenic pulmonary edema, possibly with bibasilar pleural effusions. 3. Transthoracic echocardiogram: Left ventricle: Systolic function is normal. The estimated ejection fraction is 55% to 60%. Left atrium: The appendage appeared to be ligated. Atrial septum: A PFO was demonstrated by color Doppler. Mitral valve: There is no evidence of vegetation. The findings are consistent with mild stenosis. There is mild regurgitation. Aortic valve: The leaflets are normal thickness. There is no evidence of vegetation. There is no evidence of stenosis. There is no significant regurgitation. Tricuspid valve: There is no evidence of vegetation. Pericardium, extracardiac : There is no significant pericardial effusion. 4. Venous Doppler study: No right lower extremity deep vein thrombosis. PROCEDURES WHILE IN THE HOSPITAL: 1. Transthoracic echocardiogram. DISCHARGE HOME MEDICATIONS: Continued home medications: 1. Lopressor 25 mg daily. 2. Lipitor 20 mg daily. 3. Albuterol inhaler on p.r.n. basis. 4. Cartia XT 240 mg daily. 5. Metoprolol 25 mg p.o. b.i.d. 6. Furosemide 60 mg daily. 7. Coumadin 5 mg on Sundays and 7.5 mg on remaining weeks. 8. Levothyroxine 100 mcg daily. Changed home medications: 1. Lisinopril has been decreased from 20 mg daily to 10 mg daily. New home medications: 1. Bactrim DS b.i.d. x12 days. HISTORY OF PRESENT ILLNESS/HOSPITAL COURSE: Mr. Raman is a 73-year-old male with past medical history significant for chronic venous stasis and venous stasis ulcers in the right leg, who presented to the emergency department on , status post a fall, shortness of breath, and right leg redness. Please see history and physical dictated by Dr. Adeola Mari for complete summary of the events leading up to hospitalization, but in short, while in the emergency room, the patient was evaluated and he was noted to meet sepsis criteria as he had a temp of 101.8, pulse rate greater than 90, and source of infection be in the right lower leg. In addition, he had chest x-ray that was consistent with pulmonary edema. Given these findings, the patient was admitted to the hospital. During this hospitalization, the patient's blood cultures grew Enterobacter cloacae. Given this new diagnosis of bacteremia in addition to cellulitis, Infectious Disease was consulted. Infectious Disease workup included a RAMSEY, which was unremarkable. Initially, there was consideration of the patient needing to go home with IV antibiotics for longer duration, but luckily the patient's RAMSEY was negative, repeat blood cultures have no growth, and his vital signs are stable. In addition, the patient was evaluated by Wound Care as he does have a wound at the location of his right lower leg cellulitis. The patient reported that this wound on the right lower leg has been present for about a month and he has also been seen by [facility] and [facility] in the past. The patient's right leg wound is approximately 3.2 x 2.2 x 0.1 cm and the base is red with granulating tissue and yellow slough. Initially, the patient was having wound dressed with calcium alginate and gauze, but given the degree of drainage, the decision was made to leave it open to air to avoid the skin becoming increasingly macerated. As for the pulmonary edema and acute on chronic congestive heart failure, the patient initially received IV diuresis in the form of Lasix IV and then was restarted on his home medication of Lasix 60 mg p.o. The patient also had an echocardiogram as mentioned above. The patient's breathing has much improved. The patient is stable for discharge home. REVIEW OF SYSTEMS: The patient denies shortness of breath, chest pain, palpitation. The patient denies fever and chills. The patient reports very mild pain to right lower extremity. A 14-point review of systems was completed and all others were negative. PHYSICAL EXAMINATION: Vital Signs: Temp 98.3, HR 96, RR 20, O2 saturation 94% on room air, BP 140/ 64. General: Mr. Raman is a 73-year-old male who is sitting in bed. Appeared to be in no acute distress. Appears stated age. HEENT: EOMs intact. PERRLA. Oral mucosa is moist without lesions. Posterior pharynx is clear. Neck: Supple. No lymphadenopathy. Cardiac: S1 and S2 present. Irregular rhythm. Regular rate. No murmurs, rubs , or gallops. Respiratory: Lungs are clear to auscultation. No accessory muscle use. Good aeration. No crackles, wheezes, rhonchi, or rubs. Abdomen: Soft and nontender. Bowel sounds normoactive. Extremities: The patient has bilateral pitting edema with right greater than left. Right is approximately 2+ where left is 1+. The patient has no clubbing or cyanosis. Pedal pulses are positive. Musculoskeletal: No pain or deformity. Skin: The patient has wound as mentioned above in the HPI on right anterior avila. The patient has surrounding erythema that has been ordered to be marked by nurse prior to discharge. Neuro: Neuro exam is grossly intact. LABORATORY DATA: WBC 6.9, hemoglobin 12.0, hematocrit 36, platelets 179. INR 180. Sodium 144, potassium 3.9, chloride 105, carbon dioxide 32, BUN 16, creatinine 0.81, glucose 97. DISCHARGE PLAN/FOLLOWUP: 1. Cellulitis, right leg: The patient will be discharged on Bactrim DS b.i.d. x12 days to complete a 14-day course of antibiotics. The patient has received 2 days' worth of Zosyn here in the hospital. The patient has been encouraged to follow up with his primary care provider and ID. In addition, given the cellulitis is also associated with an anterior avila wound, the patient has been referred to Wound Care and case mgr will be arranging this appointment. 2. Bacteremia: The patient's initial blood cultures grew enterobacter. RAMSEY revealed no vegetation. Repeat blood cultures have revealed no growth. 3. Acute on chronic diastolic heart failure: The patient is close to admission weight. The patient is on his home dose of Lasix of 60 mg p.o. daily. The patient's edema has improved per him and his . The patient has adequate output. The patient's shortness of breath has improved and is at baseline per the patient. The patient should continue his Lasix and follow up with his primary care in 1 to 3 days. 4. Atrial fibrillation: The patient is rate controlled. The patient is to continue his metoprolol, Cardizem, and Coumadin. His INR is slightly subtherapeutic; therefore, I recommended that the patient follow up with his primary care in 1 to 3 days for repeat INR. 5. COPD: The patient has no signs of exacerbation. He should continue albuterol as needed. 6. Hypertension: The patient is normotensive. The patient is to continue his metoprolol, Cardizem, lisinopril. It should be mentioned the patient's lisinopril was decreased from 20 mg daily to 10 mg daily. This was done to avoid hyperkalemia given he will be on Bactrim for 12 days. 7. Hypothyroid: TSH in normal range. He should continue his Synthroid. 8. JENNIFER: The patient should continue his CPAP. 9. PVD: The patient should continue his Lipitor. Given his wounds, I would also recommend the patient has outpatient ABIs. 10. PFO: Incidental finding on the RAMSEY was a PFO. The patient is already on Coumadin due to atrial fibrillation. He should follow up with his primary care regarding further evaluation and treatment if needed. 11. Followup: The patient should follow up with Dr. Brice in 10 to 12 days. The patient is to follow up with his primary care in 1 to 3 days and have a repeat BMP to assess potassium and a repeat INR to determine next Coumadin dosing. 12. Education: The patient and are educated on signs and symptoms of new or worsening condition and when to return to the emergency department. Both stated understanding. This is a summarized report of a complex medical history and hospital stay. For further details, please see the entire medical record. TIME SPENT: Approximately 35 minutes was spent on this discharge; greater than half the time was spent [id number] with the patient discussing discharge plans and instructions. This plan was also discussed with my attending, Dr. Grimes, who is in agreement with my plan of care. Reviewed by ARABELLA WOMACK NP 05/27/19 @ 1019 [id number] #: [id number] [facility]
== END 2019-05-13 16:30 | disposition home or self-care (01) | DRG 871 ==
LOC: ED 17:44 → MED 20:54 → OBSVTOIN 05-09 16:50
PROVIDERS: ADMIT Internal Medicine; ATTEND Internal Medicine
PROC: B24BZZ4 Ultrasonography of Heart with Aorta, Transesophageal (ICD-10-PCS; principal; 2019-05-09)
DX: A41.59 Other Gram-negative sepsis (principal); I50.33 Acute on chronic diastolic (congestive) heart failure; J96.11 Chronic respiratory failure with hypoxia; L03.115 Cellulitis of right lower limb; Q21.1 Atrial septal defect; Z68.41 Body mass index [BMI] 40.0-44.9, adult; E78.00 Pure hypercholesterolemia, unspecified; J44.9 Chronic obstructive pulmonary disease, unspecified; N40.0 Benign prostatic hyperplasia without lower urinary tract symptoms; H91.90 Unspecified hearing loss, unspecified ear; H26.9 Unspecified cataract; G47.33 Obstructive sleep apnea (adult) (pediatric); I11.0 Hypertensive heart disease with heart failure; E03.9 Hypothyroidism, unspecified; I73.9 Peripheral vascular disease, unspecified; E66.9 Obesity, unspecified; I48.2 Chronic atrial fibrillation; I05.0 Rheumatic mitral stenosis; I83.019 Varicose veins of right lower extremity with ulcer of unspecified site; Z96.652 Presence of left artificial knee joint; I87.8 Other specified disorders of veins; Z85.828 Personal history of other malignant neoplasm of skin; Z85.46 Personal history of malignant neoplasm of prostate; Z98.41 Cataract extraction status, right eye; Z87.891 Personal history of nicotine dependence; Z82.49 Family history of ischemic heart disease and other diseases of the circulatory system; Z79.01 Long term (current) use of anticoagulants; Z92.3 Personal history of irradiation; Z95.3 Presence of xenogenic heart valve; Z80.1 Family history of malignant neoplasm of trachea, bronchus and lung; Z80.8 Family history of malignant neoplasm of other organs or systems; Z72.89 Other problems related to lifestyle
CPT/HCPCS: 36415; 71045; 80048; 80053; 80162; 81003; 81015; 83605; 83735; 83880; 84443; 84484; 85025; 85610; 86140; 87040; 87077; 87086; 87186; 87205; 93005; 93312; 93325; 99156; 99284; A9270-GY; G0378; J0690; J0692; J1940; J2250; J2310; J2543; J3010

== ENCOUNTER 2019-09-12 08:41 | Emergency (ER) | payer MEDICARE ==
[2019-09-12 08:58] VITALS: BP 128/56
--- NOTE | 2019-09-12 09:16 | UC ---
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 Area is warm to touch. " + AFiob, s/p AVR, + PVD on coumadin. last INR this week 2.0. occas forgets his ocumadin. wears compression stockings for chronic venous stasis. -no f/c. no weeping. no dc. no fevers/chills. -has some redness warmtha dn itching to anterior distal avila. no calf swelling, pain or redness. -no CP/SOB. -he doesnt eat any salt but admits that his Thanksgiving meal likely had a lot of Na. - History of Current Complaint Chief Complaint: Reagan Stated Complaint: RIGHT LEG COMPLAINT Time Seen by Provider: 09/12/19 09:04 Pain Intensity: 0 - Allergies/Home Medications Allergies/Adverse Reactions: Allergies Allergy/AdvReac Type Severity Reaction Status Date / Time No Known Allergies Allergy Verified 09/12/19 08:52 Home Medications: Home Medications Acetaminophen [Acetaminophen Extra Strength] 1,000 mg PO Q6H PRN 09/12/19 [ History Confirmed 09/12/19] Calcium Carbonate [Calcium] 500 mg PO DAILY 09/12/19 [History Confirmed 09/12/19 ] PMH/Surg Hx/FS Hx/Imm Hx Previously Healthy: Yes Cardiovascular History: Hypertension, Atrial Fibrillation Other History Of: Negative For: Anticoagulant Therapy - Surgical History Surgical History: Yes Surgery Procedure, Year, and Place: open heart, VALVE REPLACED. prostate - Family History Known Family History: Positive: Cardiac Disease, Hypertension - Social History Alcohol Use: Daily Alcohol Amount: whiskey and pauly Substance Use Type: None Smoking Status (MU): Former Smoker Type: Cigarettes, Cigars Amount Used/How Often: 5 cigars/day Length of Time of Smoking/Using Tobacco: On and Off for 32 Years Have You Smoked in the Last Year: No When Did the Patient Quit Smoking/Using Tobacco: 1989 Household Exposure Type: Cigarettes - Immunization History Most Recent Influenza Vaccination: 2018 Most Recent Tetanus Shot: 2006 Most Recent Pneumonia Vaccination: <5yrs Review of Systems All Other Systems Reviewed And Are Negative: Yes Constitutional: Positive: Negative. Negative: Fever, Chills, Fatigue Skin: Positive: Other - see above Eyes: Positive: Negative ENT: Positive: Negative Respiratory: Positive: Negative Cardiovascular: Positive: Negative Gastrointestinal: Positive: Negative Genitourinary: Positive: Negative Motor: Positive: Negative Neurovascular: Positive: Negative Musculoskeletal: Positive: Negative Neurological: Positive: Negative Is Patient Immunocompromised?: No Physical Exam Triage Information Reviewed: Yes Appearance: Well-Appearing, No Pain Distress, Well-Nourished - very pleasant. good historian. Vital Signs: Initial Vital Signs Temp 98.4 F 09/12/19 08:53 Pulse 72 09/12/19 08:53 Resp 16 09/12/19 08:53 BP 128/56 09/12/19 08:53 Pulse Ox 94 09/12/19 08:53 Vital Signs Reviewed: Yes Eye Exam: Normal ENT Exam: Normal Neck exam: Normal Respiratory Exam: Normal Respiratory: Positive: Lungs clear, Normal breath sounds, No respiratory distress, No accessory muscle use Cardiovascular: Positive: Other: - irreg/irreg Abdominal Exam: Normal Musculoskeletal: Positive: Other: - b/l chronci venous stasis changes w/ +1-2 pitting edema. mild erythema and warmth rt distal anterior avila. no weeping. nop breaks in skin. no dc. Neurological Exam: Normal Psychological Exam: Normal Skin: Positive: Other - see above Lower Extremity Course/Dx - Course Course Of Treatment: ? mild early right distal anterior avila cellulitis on know chronic venous stasis and PVD. discussed the improtance of leg compresion stockings which he has but is not wearing today, normally does wear them. discussed the plumbing issue, not so much a diuretic issue. low suspicion for DVT as no postriror sx. pt is tehraputic on coumadin -treat w/ kefelx 500mgs tid x 10 d. rec he call designer architect on Saturday to notify of abx as he is on coumadin. - Differential Dx/Diagnosis Differential Diagnosis/HQI/PQRI: Cellulitis, Other - PVD Provider Diagnosis: Cellulitis of right leg Discharge ED - Sign-Out/Discharge Documenting (check all that apply): Patient Departure All imaging exams completed and their final reports reviewed: No Studies - Discharge Plan Condition: Stable Disposition: HOME Patient Education Materials: Cellulitis (ED) Referrals: Sumaya Gallo MD [Primary Care Provider] - 3 Days Additional Instructions: Use bacitracin ointment to your right leg. Call your designer architect on Saturday to notify of the fact that you are on an antibiotic as it may affect your coumadin level. You should go to the ER w/ any pain in the back of your leg, fevers or chills. Make sure to wear the compression stockings regularly adn keep your legs elevated. Also, be cautious of excessive salt content in Thanksgiving leftovers. - Billing Disposition and Condition Condition: STABLE Disposition: Home
== END 2019-09-12 09:31 | disposition home or self-care (01) ==
LOC: UCCORT 08:41
DX: L03.115 Cellulitis of right lower limb (principal); I48.91 Unspecified atrial fibrillation; I10 Essential (primary) hypertension; Z87.891 Personal history of nicotine dependence; Z79.01 Long term (current) use of anticoagulants
CPT/HCPCS: 99212; G0463

== ENCOUNTER 2020-06-27 15:58 | Inpatient (IN) ==
[2020-06-27 16:55] LABS: ABS Basophils 0.2 10^3/ul (0-0.2); ABS Eosinophils 0.4 10^3/ul (0-0.6); ABS Lymphocytes 1.4 10^3/ul (1.0-4.8); ABS Monocytes 1.2 10^3/ul (0-0.8); ABS Neutrophils 2.9 10^3/ul (1.5-7.7); Eosinophil % 6.9 %; Hematocrit 34 % (42-52); Hemoglobin 11.2 g/dL (14.0-18.0); Lymphocyte % 23.4 %; Mean Corpuscular HGB Conc 33 g/dL (31-36); Mean Corpuscular Hemoglobin 34 pg (27-31); Mean Corpuscular Volume 101 fL (80-94); Mean Platelet Volume 9.2 fL (7.4-10.4); Nucleated Red Blood Cells % 0.1; Platelet Count 120 10^3/uL (150-450); Red Blood Count 3.33 10^6 /uL (4.18-5.48); Red Cell Distribution Width 18 % (10-15); White Blood Count 6.1 10^3/uL (3.5-10.8)
[2020-06-27 17:19] LABS: Troponin I 0.03 ng/mL (<0.03)
[2020-06-27 17:20] LABS: ALT 19 U/L (7-52); AST 25 U/L (13-39); Albumin 4.1 g/dL (3.2-5.2); Albumin/Globulin Ratio 2.1 (1-3); Alkaline Phosphatase 144 U/L (34-104); BUN/Creatinine Ratio 22.7 (8-20); Blood Urea Nitrogen 25 mg/dL (6-24); CO2 Carbon Dioxide 34 mmol/L (22-32); Calcium 9.8 mg/dL (8.6-10.3); Chloride 107 mmol/L (101-111); EGFR African American 78.7 (>60); EGFR Non-African American 65.1 (>60); Glucose 110 mg/dL (70-100); Total Protein 6.1 g/dL (6.4-8.9)
[2020-06-27 17:21] LABS: Anion Gap 6 mmol/L (2-11); Sodium 147 mmol/L (135-145)
[2020-06-27] MEDS ORDERED: Albuterol/Ipratropium NEB.SOL (2.5/0.5 MG) 3 ML NEB.SOLN INH ONE (17:21)
[2020-06-27] MEDS ORDERED: Furosemide 40 mg/4 ml IV VIAL IV ONE (17:21)
[2020-06-27 18:22] LABS: INR 1.85 (0.82-1.09)
[2020-06-27 19:24] LABS: Troponin I 0.03 ng/mL (<0.03)
[2020-06-27 20:53] LABS: Magnesium 2.3 mg/dL (1.9-2.7)
[2020-06-27] MEDS ORDERED: Albuterol HFA INHALER 8 gm MDI INH PRN (21:33)
[2020-06-27 22:40] LABS: Troponin I 0.03 ng/mL (<0.03)
[2020-06-28 06:02] LABS: ABS Basophils 0.1 10^3/ul (0-0.2); ABS Eosinophils 0.4 10^3/ul (0-0.6); ABS Lymphocytes 1.2 10^3/ul (1.0-4.8); ABS Neutrophils 2.6 10^3/ul (1.5-7.7); Hematocrit 33 % (42-52); Hemoglobin 10.7 g/dL (14.0-18.0); Lymphocyte % 22.1 %; Mean Corpuscular HGB Conc 32 g/dL (31-36); Mean Corpuscular Hemoglobin 32 pg (27-31); Mean Corpuscular Volume 101 fL (80-94); Mean Platelet Volume 9.1 fL (7.4-10.4); Platelet Count 109 10^3/uL (150-450); Red Blood Count 3.29 10^6 /uL (4.18-5.48); Red Cell Distribution Width 17 % (10-15); White Blood Count 5.2 10^3/uL (3.5-10.8)
[2020-06-28 06:08] LABS: INR 1.8 (0.82-1.09)
[2020-06-28 06:19] LABS: BUN/Creatinine Ratio 20.4 (8-20); Calcium 9.7 mg/dL (8.6-10.3); EGFR Non-African American 70.2 (>60); Potassium 3.9 mmol/L (3.5-5.0)
[2020-06-28] MEDS ORDERED: Perflutren Lipid Microsphere 3 ML VIAL ONE (08:00)
[2020-06-28] MEDS: Furosemide 40 mg/4 ml IV VIAL IV SLOW PU SCH ×2 (08:42→17:06)
[2020-06-28] MEDS: SPIRIVA Respimat (tiotropium) 2.5 mcg/inh Inhaler INH SCH (11:47)
[2020-06-28] MEDS ORDERED: Furosemide 40 mg/4 ml IV VIAL IV ONE (13:18)
[2020-06-28] MEDS ORDERED: Influenza VAC *QUAD* 2020-21* 0.5 ML SYRINGE IM ONE (14:00)
[2020-06-28] MEDS ORDERED: Warfarin per PHARMACY **NOTE FOLLOW UP SCH (16:00)
[2020-06-29 07:29] LABS: ABS Basophils 0.1 10^3/ul (0-0.2); ABS Eosinophils 0.4 10^3/ul (0-0.6); ABS Lymphocytes 1.2 10^3/ul (1.0-4.8); ABS Neutrophils 3.1 10^3/ul (1.5-7.7); Eosinophil % 7.6 %; Hematocrit 32 % (42-52); Hemoglobin 10.7 g/dL (14.0-18.0); Lymphocyte % 20.1 %; Mean Corpuscular HGB Conc 34 g/dL (31-36); Mean Corpuscular Hemoglobin 34 pg (27-31); Mean Corpuscular Volume 101 fL (80-94); Mean Platelet Volume 9.4 fL (7.4-10.4); Platelet Count 104 10^3/uL (150-450); Red Blood Count 3.14 10^6 /uL (4.18-5.48); Red Cell Distribution Width 18 % (10-15); White Blood Count 5.8 10^3/uL (3.5-10.8)
[2020-06-29 07:35] LABS: INR 1.81 (0.82-1.09)
[2020-06-29 07:39] LABS: BUN/Creatinine Ratio 22.3 (8-20); Calcium 9.8 mg/dL (8.6-10.3); EGFR Non-African American 70.2 (>60); Potassium 3.9 mmol/L (3.5-5.0)
[2020-06-29] MEDS: Furosemide 40 mg/4 ml IV VIAL IV SLOW PU SCH ×2 (08:32→17:38)
[2020-06-29] MEDS: SPIRIVA Respimat (tiotropium) 2.5 mcg/inh Inhaler INH SCH (14:14)
[2020-06-29] MEDS ORDERED: Furosemide 20 mg/2 ml IV VIAL IV SLOW PU ONE (15:58)
[2020-06-29] MEDS: Warfarin DAILY REMINDER **NOTE FOLLOW UP SCH (17:39)
[2020-06-30 06:12] LABS: INR 1.97 (0.82-1.09)
[2020-06-30 06:14] LABS: BUN/Creatinine Ratio 22.6 (8-20); Calcium 9.9 mg/dL (8.6-10.3); EGFR African American 82.2 (>60); EGFR Non-African American 67.9 (>60); Potassium 3.6 mmol/L (3.5-5.0)
[2020-06-30] MEDS: Furosemide 40 mg/4 ml IV VIAL IV SLOW PU SCH (07:55)
[2020-06-30] MEDS ORDERED: Bumetanide IV 0.25 MG/ML 4 ml VIAL (1 mg) SLOW PUSH ONE ×2 (10:00→16:00)
[2020-06-30] MEDS: SPIRIVA Respimat (tiotropium) 2.5 mcg/inh Inhaler INH SCH (10:09)
[2020-06-30] MEDS: Warfarin DAILY REMINDER **NOTE FOLLOW UP SCH (15:55)
[2020-07-01 06:30] LABS: ABS Basophils 0.1 10^3/ul (0-0.2); ABS Eosinophils 0.5 10^3/ul (0-0.6); ABS Lymphocytes 1.3 10^3/ul (1.0-4.8); ABS Neutrophils 2.5 10^3/ul (1.5-7.7); Eosinophil % 8.8 %; Hematocrit 33 % (42-52); Hemoglobin 10.6 g/dL (14.0-18.0); Lymphocyte % 23.7 %; Mean Corpuscular HGB Conc 33 g/dL (31-36); Mean Corpuscular Hemoglobin 33 pg (27-31); Mean Corpuscular Volume 100 fL (80-94); Mean Platelet Volume 8.8 fL (7.4-10.4); Platelet Count 105 10^3/uL (150-450); Red Blood Count 3.25 10^6 /uL (4.18-5.48); Red Cell Distribution Width 17 % (10-15); White Blood Count 5.4 10^3/uL (3.5-10.8)
[2020-07-01 06:36] LABS: INR 2.24 (0.82-1.09)
[2020-07-01 06:48] LABS: BUN/Creatinine Ratio 22.4 (8-20); Calcium 9.8 mg/dL (8.6-10.3); EGFR Non-African American 74.4 (>60); Potassium 3.7 mmol/L (3.5-5.0)
[2020-07-01] MEDS ORDERED: Bumetanide IV 0.25 MG/ML 4 ml VIAL (1 mg) SLOW PUSH ONE ×2 (08:00→15:00)
[2020-07-01] MEDS: Warfarin DAILY REMINDER **NOTE FOLLOW UP SCH (17:30)
[2020-07-02 05:50] LABS: ABS Basophils 0.1 10^3/ul (0-0.2); ABS Eosinophils 0.5 10^3/ul (0-0.6); ABS Lymphocytes 1.5 10^3/ul (1.0-4.8); ABS Neutrophils 2.6 10^3/ul (1.5-7.7); Eosinophil % 8.8 %; Hematocrit 33 % (42-52); Hemoglobin 11.2 g/dL (14.0-18.0); Lymphocyte % 26.1 %; Mean Corpuscular HGB Conc 34 g/dL (31-36); Mean Corpuscular Hemoglobin 34 pg (27-31); Mean Corpuscular Volume 99 fL (80-94); Mean Platelet Volume 8.6 fL (7.4-10.4); Platelet Count 114 10^3/uL (150-450); Red Blood Count 3.35 10^6 /uL (4.18-5.48); Red Cell Distribution Width 17 % (10-15); White Blood Count 5.7 10^3/uL (3.5-10.8)
[2020-07-02 05:56] LABS: INR 2.34 (0.82-1.09)
[2020-07-02 06:06] LABS: BUN/Creatinine Ratio 22.2 (8-20); Calcium 10.2 mg/dL (8.6-10.3); EGFR African American 88.9 (>60); EGFR Non-African American 73.5 (>60); Potassium 3.9 mmol/L (3.5-5.0)
[2020-07-02] MEDS ORDERED: Bumetanide IV 0.25 MG/ML 4 ml VIAL (1 mg) SLOW PUSH ONE (09:00)
[2020-07-02] MEDS: Bumetanide IV 0.25 MG/ML 4 ml VIAL (1 mg) SLOW PUSH SCH (14:12)
[2020-07-02] MEDS: Warfarin DAILY REMINDER **NOTE FOLLOW UP SCH (17:14)
[2020-07-03 08:50] LABS: INR 2.39 (0.82-1.09)
[2020-07-03 09:00] LABS: EGFR African American 87.9 (>60); EGFR Non-African American 72.6 (>60); Potassium 3.9 mmol/L (3.5-5.0)
[2020-07-03] MEDS: Bumetanide IV 0.25 MG/ML 4 ml VIAL (1 mg) SLOW PUSH SCH ×2 (09:23→13:13)
[2020-07-03 10:31] LABS: Magnesium 2.3 mg/dL (1.9-2.7)
[2020-07-03] MEDS: Warfarin DAILY REMINDER **NOTE FOLLOW UP SCH (17:15)
[2020-07-04] MEDS: SPIRIVA Respimat (tiotropium) 2.5 mcg/inh Inhaler INH SCH ×3 (06:13→10:44)
[2020-07-04 06:25] LABS: INR 2.45 (0.82-1.09)
[2020-07-04 06:38] LABS: BUN/Creatinine Ratio 23.7 (8-20); Calcium 9.7 mg/dL (8.6-10.3); EGFR African American 75.6 (>60); EGFR Non-African American 62.5 (>60); Potassium 3.8 mmol/L (3.5-5.0)
[2020-07-04] MEDS: Bumetanide IV 0.25 MG/ML 4 ml VIAL (1 mg) SLOW PUSH SCH (07:59)
[2020-07-04 08:03] VITALS: BP 116/47
== END 2020-07-04 12:45 | disposition home health service (06) | DRG 292 ==
LOC: ED 15:58 → MEDTELE 15:58
PROVIDERS: ADMIT Nurse Practitioner Family; ATTEND Internal Medicine

== ENCOUNTER 2020-10-06 08:30 | Inpatient (IN) ==
[2020-10-06 09:25] LABS: ABS Basophils 0.1 10^3/ul (0-0.2); ABS Eosinophils 0.2 10^3/ul (0-0.6); ABS Lymphocytes 0.8 10^3/ul (1.0-4.8); ABS Monocytes 1.3 10^3/ul (0-0.8); ABS Neutrophils 6.5 10^3/ul (1.5-7.7); Eosinophil % 1.9 %; Hematocrit 32 % (42-52); Hemoglobin 10.5 g/dL (14.0-18.0); Lymphocyte % 9.1 %; Mean Corpuscular HGB Conc 32 g/dL (31-36); Mean Corpuscular Hemoglobin 34 pg (27-31); Mean Corpuscular Volume 104 fL (80-94); Mean Platelet Volume 9.5 fL (7.4-10.4); Platelet Count 105 10^3/uL (150-450); Red Blood Count 3.11 10^6 /uL (4.18-5.48); Red Cell Distribution Width 18 % (10-15); White Blood Count 8.8 10^3/uL (3.5-10.8)
[2020-10-06 09:47] LABS: ALT 21 U/L (7-52); AST 32 U/L (13-39); Albumin 4.2 g/dL (3.2-5.2); Albumin/Globulin Ratio 2.1 (1-3); Alkaline Phosphatase 142 U/L (34-104); BUN/Creatinine Ratio 26.1 (8-20); Blood Urea Nitrogen 40 mg/dL (6-24); CO2 Carbon Dioxide 37 mmol/L (22-32); Calcium 10.4 mg/dL (8.6-10.3); Chloride 100 mmol/L (101-111); EGFR African American 53.8 (>60); EGFR Non-African American 44.5 (>60); Glucose 95 mg/dL (70-100); Total Protein 6.2 g/dL (6.4-8.9)
[2020-10-06] MEDS ORDERED: Furosemide 40 mg/4 ml IV VIAL IV ONE (09:50)
[2020-10-06 10:09] LABS: Anion Gap 10 mmol/L (2-11); Sodium 147 mmol/L (135-145)
[2020-10-06 10:14] LABS: INR 1.83 (0.82-1.09)
[2020-10-06] MEDS ORDERED: Bumetanide IV 0.25 MG/ML 4 ml VIAL (1 mg) SLOW PUSH ONE ×2 (10:23→10:55)
[2020-10-06 10:35] LABS: Troponin I 0.05 ng/mL (<0.03)
[2020-10-06] MEDS ORDERED: Ondansetron 4 mg VIAL 2 MG/ML 2 ml VIAL IV PRN (10:40)
[2020-10-06] MEDS ORDERED: Albuterol HFA INHALER 8 gm MDI INH PRN (10:47)
[2020-10-06 11:00] LABS: Magnesium 2.2 mg/dL (1.9-2.7)
[2020-10-06] MEDS ORDERED: Enoxaparin 40 MG/0.4 ML SYR SUBCUT ONE (11:14)
[2020-10-06] MEDS ORDERED: Enoxaparin 40 MG/0.4 ML SYR SUBCUT SCH (12:00)
[2020-10-06 13:29] LABS: Troponin I 0.06 ng/mL (<0.03)
[2020-10-06] MEDS: Bumetanide IV 0.25 MG/ML 4 ml VIAL (1 mg) SLOW PUSH SCH (14:48)
[2020-10-06 17:29] LABS: Troponin I 0.07 ng/mL (<0.03)
[2020-10-06 20:22] LABS: Troponin I 0.07 ng/mL (<0.03)
[2020-10-07] MEDS: Bumetanide IV 0.25 MG/ML 4 ml VIAL (1 mg) SLOW PUSH SCH ×2 (05:48→12:23)
[2020-10-07 06:22] LABS: INR 1.82 (0.82-1.09)
[2020-10-07 06:25] LABS: Anion Gap 6 mmol/L (2-11); BUN/Creatinine Ratio 26.5 (8-20); Blood Urea Nitrogen 39 mg/dL (6-24); CO2 Carbon Dioxide 40 mmol/L (22-32); Calcium 10.3 mg/dL (8.6-10.3); Chloride 97 mmol/L (101-111); EGFR African American 56.4 (>60); EGFR Non-African American 46.6 (>60); Glucose 103 mg/dL (70-100); Magnesium 2.2 mg/dL (1.9-2.7); Potassium 3.5 mmol/L (3.5-5.0); Sodium 143 mmol/L (135-145)
[2020-10-07 06:39] LABS: ABS Basophils 0.1 10^3/ul (0-0.2); ABS Eosinophils 0.1 10^3/ul (0-0.6); ABS Lymphocytes 0.6 10^3/ul (1.0-4.8); ABS Monocytes 0.9 10^3/ul (0-0.8); ABS Neutrophils 4.5 10^3/ul (1.5-7.7); Eosinophil % 1.1 %; Hematocrit 31 % (42-52); Hemoglobin 10.1 g/dL (14.0-18.0); Lymphocyte % 10.2 %; Mean Corpuscular HGB Conc 32 g/dL (31-36); Mean Corpuscular Hemoglobin 34 pg (27-31); Mean Corpuscular Volume 104 fL (80-94); Mean Platelet Volume 9.3 fL (7.4-10.4); Nucleated Red Blood Cells % 0.1; Red Blood Count 2.99 10^6 /uL (4.18-5.48); Red Cell Distribution Width 17 % (10-15); White Blood Count 6.1 10^3/uL (3.5-10.8)
[2020-10-07 07:15] LABS: Folate > 20.00 ng/mL (>3.99)
[2020-10-07] MEDS: SPIRIVA Respimat (tiotropium) 2.5 mcg/inh Inhaler INH SCH (07:51)
[2020-10-07 10:51] LABS: Platelet Count 92 10^3/uL (150-450)
[2020-10-07 15:29] LABS: Troponin I 0.07 ng/mL (<0.03)
[2020-10-08] MEDS: Bumetanide IV 0.25 MG/ML 4 ml VIAL (1 mg) SLOW PUSH SCH (05:56)
[2020-10-08] MEDS: SPIRIVA Respimat (tiotropium) 2.5 mcg/inh Inhaler INH SCH (07:56)
[2020-10-08 08:56] LABS: Hematocrit 30 % (42-52); Hemoglobin 9.6 g/dL (14.0-18.0); Mean Corpuscular HGB Conc 33 g/dL (31-36); Mean Corpuscular Hemoglobin 34 pg (27-31); Mean Corpuscular Volume 103 fL (80-94); Mean Platelet Volume 9.7 fL (7.4-10.4); Platelet Count 84 10^3/uL (150-450); Red Blood Count 2.87 10^6 /uL (4.18-5.48); Red Cell Distribution Width 17 % (10-15); White Blood Count 7.1 10^3/uL (3.5-10.8)
[2020-10-08 09:05] LABS: INR 1.93 (0.82-1.09)
[2020-10-08 09:07] LABS: BUN/Creatinine Ratio 25.5 (8-20); Calcium 9.9 mg/dL (8.6-10.3); EGFR African American 41.4 (>60); EGFR Non-African American 34.2 (>60); Potassium 3.1 mmol/L (3.5-5.0)
[2020-10-08] MEDS ORDERED: Potassium Chloride LIQUID 20 MEQ/15 ML LIQUID PO ONE (09:23)
[2020-10-08 11:24] LABS: ABS Eosinophils 0.1 10^3/ul (0-0.6); ABS Lymphocytes 0.7 10^3/ul (1.0-4.8); ABS Monocytes 1.2 10^3/ul (0-0.8); ABS Neutrophils 5.1 10^3/ul (1.5-7.7); Eosinophil % 0.8 %; Lymphocyte % 9.3 %; Nucleated Red Blood Cells % 0.3
[2020-10-08 15:17] LABS: C Reactive Protein 166.85 mg/L (<8.01)
[2020-10-08] MEDS ORDERED: Bumetanide IV 0.25 MG/ML 4 ml VIAL (1 mg) SLOW PUSH ONE (15:26)
[2020-10-08 16:17] LABS: Ferritin 398.9 ng/mL (24-336)
[2020-10-09 05:37] LABS: Hematocrit 30 % (42-52); Hemoglobin 9.9 g/dL (14.0-18.0); Mean Corpuscular HGB Conc 33 g/dL (31-36); Mean Corpuscular Hemoglobin 34 pg (27-31); Mean Corpuscular Volume 101 fL (80-94); Mean Platelet Volume 9.9 fL (7.4-10.4); Platelet Count 84 10^3/uL (150-450); Red Blood Count 2.96 10^6 /uL (4.18-5.48); Red Cell Distribution Width 18 % (10-15)
[2020-10-09 05:55] LABS: BUN/Creatinine Ratio 23.6 (8-20); Calcium 10.1 mg/dL (8.6-10.3); EGFR African American 28.8 (>60); EGFR Non-African American 23.8 (>60); INR 1.76 (0.82-1.09); Magnesium 2.2 mg/dL (1.9-2.7); Potassium 3.6 mmol/L (3.5-5.0)
[2020-10-09] MEDS: SPIRIVA Respimat (tiotropium) 2.5 mcg/inh Inhaler INH SCH (07:23)
[2020-10-09] MEDS ORDERED: NS 0.9% 1000 ml BAG 250 ML IV ONE (10:03)
[2020-10-09] MEDS ORDERED: NS 0.9% 250 ml 250 ML IV SCH (11:00)
[2020-10-10 05:45] LABS: Hematocrit 29 % (42-52); Hemoglobin 9.4 g/dL (14.0-18.0); Mean Corpuscular HGB Conc 33 g/dL (31-36); Mean Corpuscular Hemoglobin 33 pg (27-31); Mean Corpuscular Volume 102 fL (80-94); Mean Platelet Volume 10.1 fL (7.4-10.4); Platelet Count 72 10^3/uL (150-450); Red Blood Count 2.83 10^6 /uL (4.18-5.48); Red Cell Distribution Width 18 % (10-15); White Blood Count 6.9 10^3/uL (3.5-10.8)
[2020-10-10 06:05] LABS: BUN/Creatinine Ratio 24.8 (8-20); EGFR African American 24.5 (>60); EGFR Non-African American 20.2 (>60); Magnesium 2.2 mg/dL (1.9-2.7); Potassium 3.6 mmol/L (3.5-5.0)
[2020-10-10 07:14] LABS: ABS Basophils 0.1 10^3/ul (0-0.2); ABS Eosinophils 0.1 10^3/ul (0-0.6); ABS Lymphocytes 0.7 10^3/ul (1.0-4.8); ABS Monocytes 1.5 10^3/ul (0-0.8); ABS Neutrophils 4.4 10^3/ul (1.5-7.7); Eosinophil % 1.9 %; Lymphocyte % 10.5 %; Nucleated Red Blood Cells % 0.1
[2020-10-10] MEDS: SPIRIVA Respimat (tiotropium) 2.5 mcg/inh Inhaler INH SCH (11:02)
[2020-10-10] MEDS ORDERED: Furosemide 100 mg/10 ml IV VIAL IV ONE (18:28)
[2020-10-10 20:02] LABS: Urine Appearance Cloudy; Urine Bilirubin Negative (Negative); Urine Blood Negative (Negative); Urine Color Yellow; Urine Glucose Negative (Negative); Urine Ketones Negative (Negative); Urine Nitrite Negative (Negative); Urine Protein 1+(30 mg/dL) (Negative); Urine Specific Gravity 1.013 (1.010-1.030); Urine Urobilinogen Negative (Negative)
[2020-10-10 20:10] LABS: Urine Bacteria Absent (Absent); Urine Granular Casts Present (Absent); Urine Red Blood Cell Trace(0-2/hpf) (Absent); Urine Squamous Epithelial Cell Present (Absent); Urine White Blood Cell Trace(0-5/hpf) (Absent)
[2020-10-11] MEDS ORDERED: Albuterol 2.5mg/3 ml (0.083%) NEB.SOLN INH ONE ×2 (04:17→04:19)
[2020-10-11] MEDS ORDERED: Furosemide 100 mg/10 ml IV 100 MG in NS 0.9% 100 ml BAG 90 ML IV SCH (05:00)
[2020-10-11] MEDS: Levothyroxine 100 MCG/5 ML VIAL IV SCH (06:37)
[2020-10-11 07:29] LABS: Hematocrit 27 % (42-52); Mean Corpuscular HGB Conc 33 g/dL (31-36); Mean Corpuscular Hemoglobin 34 pg (27-31); Mean Corpuscular Volume 101 fL (80-94); Mean Platelet Volume 9.9 fL (7.4-10.4); Platelet Count 76 10^3/uL (150-450); Red Blood Count 2.68 10^6 /uL (4.18-5.48); Red Cell Distribution Width 18 % (10-15); White Blood Count 7.9 10^3/uL (3.5-10.8)
[2020-10-11 07:42] LABS: BUN/Creatinine Ratio 26.1 (8-20); Blood Urea Nitrogen 86 mg/dL (6-24); CO2 Carbon Dioxide 37 mmol/L (22-32); Calcium 9.6 mg/dL (8.6-10.3); Chloride 93 mmol/L (101-111); EGFR African American 22.2 (>60); EGFR Non-African American 18.4 (>60); Glucose 85 mg/dL (70-100); Magnesium 2.3 mg/dL (1.9-2.7); Sodium 138 mmol/L (135-145)
[2020-10-11 07:53] LABS: Anion Gap 8 mmol/L (2-11)
[2020-10-11] MEDS: SPIRIVA Respimat (tiotropium) 2.5 mcg/inh Inhaler INH SCH (08:18)
[2020-10-11 08:24] LABS: BUN/Creatinine Ratio 25.8 (8-20); EGFR African American 22.2 (>60); EGFR Non-African American 18.3 (>60)
[2020-10-11] MEDS: Furosemide 100 mg/10 ml IV 100 MG in NS 0.9% 100 ml BAG 90 ML IV SCH ×2 (09:50→22:29)
[2020-10-11 12:30] LABS: Calcium 9.8 mg/dL (8.6-10.3); Potassium 3.7 mmol/L (3.5-5.0)
[2020-10-11] MEDS ORDERED: KCL 20 MEQ/100 ML IVPREMIX 20 MEQ/100 ML BAG IV ONE (18:44)
[2020-10-11] MEDS: Doxycycline 100 MG in NS 0.9% 250 ML BAG IVPB SCH (21:57)
[2020-10-12 05:14] LABS: Hematocrit 27 % (42-52); Hemoglobin 8.9 g/dL (14.0-18.0); Mean Corpuscular HGB Conc 33 g/dL (31-36); Mean Corpuscular Hemoglobin 33 pg (27-31); Mean Corpuscular Volume 101 fL (80-94); Mean Platelet Volume 9.7 fL (7.4-10.4); Platelet Count 89 10^3/uL (150-450); Red Blood Count 2.69 10^6 /uL (4.18-5.48); Red Cell Distribution Width 18 % (10-15); White Blood Count 7.4 10^3/uL (3.5-10.8)
[2020-10-12 05:27] LABS: BUN/Creatinine Ratio 31.8 (8-20); Calcium 9.9 mg/dL (8.6-10.3); EGFR African American 29.4 (>60); EGFR Non-African American 24.3 (>60); Magnesium 2.3 mg/dL (1.9-2.7); Phosphorus 4.6 mg/dL (2.5-5.0); Potassium 3.8 mmol/L (3.5-5.0)
[2020-10-12] MEDS: Furosemide 100 mg/10 ml IV 100 MG in NS 0.9% 100 ml BAG 90 ML IV SCH (05:35)
[2020-10-12] MEDS: Levothyroxine 100 MCG/5 ML VIAL IV SCH (05:35)
[2020-10-12] MEDS ORDERED: KCL 20 MEQ/100 ML IVPREMIX 20 MEQ/100 ML BAG IV ONE (07:48)
[2020-10-12] MEDS: SPIRIVA Respimat (tiotropium) 2.5 mcg/inh Inhaler INH SCH (07:49)
[2020-10-12] MEDS ORDERED: Potassium Chloride LIQUID 20 MEQ/15 ML LIQUID PO ONE (08:20)
[2020-10-12] MEDS: Doxycycline 100 MG in NS 0.9% 250 ML BAG IVPB SCH (09:45)
[2020-10-12 10:00] LABS: INR 3.28 (0.82-1.09)
[2020-10-12] MEDS ORDERED: Warfarin per PHARMACY **NOTE FOLLOW UP SCH (12:00)
[2020-10-12] MEDS ORDERED: Warfarin - No Order Today **NOTE FOLLOW UP ONE (17:00)
[2020-10-12] MEDS ORDERED: Furosemide 100 mg/10 ml IV 100 MG in NS 0.9% 100 ml BAG 90 ML IV SCH ×2 (18:40→18:48)
[2020-10-12 18:48] LABS: Albumin 2.3 g/dL (3.4-4.7); Albumin/Globulin Ratio 0.92; Gamma Globulin 0.4 g/dL (0.6-1.6); Total Protein(PEP) 4.7 g/dL (6.3 - 7.9)
[2020-10-12 20:20] LABS: Urine Kappa Total Light Chain 37.4 mg/dL (<0.9000); Urine Kappa/Lambda Light Chain >53.4
[2020-10-12 22:55] LABS: Kappa Free Light Chain 1170 mg/dL
[2020-10-13] LABS: Complement C3 114 mg/dL (75 - 175)
[2020-10-13] MEDS: Furosemide 100 mg/10 ml IV 100 MG in NS 0.9% 100 ml BAG 90 ML IV SCH (04:57)
[2020-10-13] MEDS ORDERED: Furosemide 100 mg/10 ml IV 100 MG in NS 0.9% 100 ml BAG 90 ML IV SCH (05:00)
[2020-10-13 05:48] LABS: Hematocrit 28 % (42-52); INR 3.54 (0.82-1.09); Mean Corpuscular HGB Conc 33 g/dL (31-36); Mean Corpuscular Hemoglobin 34 pg (27-31); Mean Corpuscular Volume 103 fL (80-94); Mean Platelet Volume 9.9 fL (7.4-10.4); Platelet Count 110 10^3/uL (150-450); Red Blood Count 2.69 10^6 /uL (4.18-5.48); Red Cell Distribution Width 18 % (10-15); White Blood Count 8.9 10^3/uL (3.5-10.8)
[2020-10-13 06:03] LABS: BUN/Creatinine Ratio 38.7 (8-20); Calcium 9.9 mg/dL (8.6-10.3); EGFR African American 36.9 (>60); EGFR Non-African American 30.5 (>60); Magnesium 2.1 mg/dL (1.9-2.7); Potassium 4.1 mmol/L (3.5-5.0)
[2020-10-13] MEDS: Levothyroxine 100 MCG/5 ML VIAL IV SCH (06:36)
[2020-10-13] MEDS: SPIRIVA Respimat (tiotropium) 2.5 mcg/inh Inhaler INH SCH (09:37)
[2020-10-13] MEDS ORDERED: Warfarin - No Order Today **NOTE FOLLOW UP ONE (10:00)
[2020-10-13] MEDS: Warfarin DAILY REMINDER **NOTE FOLLOW UP SCH (18:21)
[2020-10-13 20:51] LABS: BUN/Creatinine Ratio 38.4 (8-20); Calcium 10.2 mg/dL (8.6-10.3); EGFR African American 41.9 (>60); EGFR Non-African American 34.6 (>60); Potassium 4.2 mmol/L (3.5-5.0)
[2020-10-14 05:24] LABS: ABS Basophils 0.1 10^3/ul (0-0.2); ABS Eosinophils 0.2 10^3/ul (0-0.6); ABS Lymphocytes 1.3 10^3/ul (1.0-4.8); ABS Monocytes 1.5 10^3/ul (0-0.8); ABS Neutrophils 5.7 10^3/ul (1.5-7.7); Eosinophil % 2.7 %; Hematocrit 28 % (42-52); Lymphocyte % 14.5 %; Mean Corpuscular HGB Conc 33 g/dL (31-36); Mean Corpuscular Hemoglobin 33 pg (27-31); Mean Corpuscular Volume 102 fL (80-94); Mean Platelet Volume 9.2 fL (7.4-10.4); Platelet Count 134 10^3/uL (150-450); Red Cell Distribution Width 18 % (10-15); White Blood Count 8.8 10^3/uL (3.5-10.8)
[2020-10-14 05:31] LABS: INR 4.11 (0.82-1.09)
[2020-10-14] MEDS: Levothyroxine 100 MCG/5 ML VIAL IV SCH (05:49)
[2020-10-14 05:50] LABS: BUN/Creatinine Ratio 41.4 (8-20); Calcium 10.3 mg/dL (8.6-10.3); EGFR Non-African American 35.5 (>60); Potassium 4.3 mmol/L (3.5-5.0)
[2020-10-14] MEDS: SPIRIVA Respimat (tiotropium) 2.5 mcg/inh Inhaler INH SCH (07:48)
[2020-10-14] MEDS: Furosemide 100 mg/10 ml IV 100 MG in NS 0.9% 100 ml BAG 90 ML IV SCH (07:52)
[2020-10-14 10:43] LABS: TSH Ultra Thyroid Stim Horm 5.33 mcIU/mL (0.34-5.60)
[2020-10-14] MEDS: Bumetanide IV 0.25 MG/ML 4 ml VIAL (1 mg) SLOW PUSH SCH ×2 (11:19→19:37)
[2020-10-14] MEDS ORDERED: Warfarin - No Order Today **NOTE FOLLOW UP ONE (17:00)
[2020-10-14] MEDS: Warfarin DAILY REMINDER **NOTE FOLLOW UP SCH (17:36)
[2020-10-14 18:30] LABS: BUN/Creatinine Ratio 39.6 (8-20); Calcium 10.6 mg/dL (8.6-10.3); EGFR Non-African American 36.4 (>60); Potassium 4.4 mmol/L (3.5-5.0)
[2020-10-14] MEDS ORDERED: Bumetanide IV 0.25 MG/ML 4 ml VIAL (1 mg) SLOW PUSH SCH (21:00)
[2020-10-15 04:15] LABS: ABS Basophils 0.1 10^3/ul (0-0.2); ABS Eosinophils 0.2 10^3/ul (0-0.6); ABS Lymphocytes 1.3 10^3/ul (1.0-4.8); ABS Monocytes 1.4 10^3/ul (0-0.8); ABS Neutrophils 6.7 10^3/ul (1.5-7.7); Eosinophil % 1.8 %; Hematocrit 27 % (42-52); Hemoglobin 8.7 g/dL (14.0-18.0); Lymphocyte % 13.6 %; Mean Corpuscular HGB Conc 33 g/dL (31-36); Mean Corpuscular Hemoglobin 33 pg (27-31); Mean Corpuscular Volume 102 fL (80-94); Mean Platelet Volume 9.3 fL (7.4-10.4); Platelet Count 141 10^3/uL (150-450); Red Blood Count 2.64 10^6 /uL (4.18-5.48); Red Cell Distribution Width 17 % (10-15); White Blood Count 9.8 10^3/uL (3.5-10.8)
[2020-10-15 04:30] LABS: BUN/Creatinine Ratio 41.1 (8-20); Calcium 10.6 mg/dL (8.6-10.3); EGFR African American 43.2 (>60); EGFR Non-African American 35.7 (>60); Potassium 4.2 mmol/L (3.5-5.0)
[2020-10-15 04:41] LABS: INR 6.56 (0.82-1.09)
[2020-10-15] MEDS: Levothyroxine 100 MCG/5 ML VIAL IV SCH (05:49)
[2020-10-15] MEDS: Bumetanide IV 0.25 MG/ML 4 ml VIAL (1 mg) SLOW PUSH SCH ×2 (08:17→21:20)
[2020-10-15] MEDS: SPIRIVA Respimat (tiotropium) 2.5 mcg/inh Inhaler INH SCH (08:44)
[2020-10-15 10:14] LABS: Magnesium 2.2 mg/dL (1.9-2.7)
[2020-10-15] MEDS ORDERED: Warfarin - No Order Today **NOTE FOLLOW UP ONE (17:00)
[2020-10-15] MEDS ORDERED: Piperacillin/Tazobac ADVAN 3.375 GM in NS 0.9% 100 ml BAG 100 ML IV ONE (17:04)
[2020-10-15] MEDS ORDERED: Zosyn per Pharmacy NOTE FOLLOW UP SCH (18:00)
[2020-10-15] MEDS: Warfarin DAILY REMINDER **NOTE FOLLOW UP SCH (18:00)
[2020-10-15] MEDS: Linezolid 600 MG IVPREMIX(*) 600 MG/300 ML BAG IVPB SCH (20:23)
[2020-10-15 20:25] LABS: Activated Partial Thrombo Time 54.8 seconds (26.0-38.0); Fibrinogen 455.1 mg/dL (110.8-404.3)
[2020-10-15 20:41] LABS: Albumin 3.2 g/dL (3.2-5.2); Albumin/Globulin Ratio 1.5 (1-3); Globulin 2.1 g/dL (2-4); Total Bilirubin 1.6 mg/dL (0.2-1.0); Total Protein 5.3 g/dL (6.4-8.9)
[2020-10-15 20:47] LABS: Indirect Bilirubin 0.9 mg/dL (0.3-1.0)
[2020-10-15] MEDS: Senna TAB 8.6 mg TAB PO SCH (21:27)
[2020-10-15] MEDS: ZOSYN 3.375 GM Q12H per EXTENDED INFUSION IV SCH (23:23)
[2020-10-16] MEDS: Levothyroxine 100 MCG/5 ML VIAL IV SCH (05:16)
[2020-10-16] MEDS: Linezolid 600 MG IVPREMIX(*) 600 MG/300 ML BAG IVPB SCH ×2 (05:21→18:30)
[2020-10-16 05:56] LABS: ABS Basophils 0.1 10^3/ul (0-0.2); ABS Eosinophils 0.1 10^3/ul (0-0.6); ABS Lymphocytes 1.2 10^3/ul (1.0-4.8); ABS Neutrophils 8.7 10^3/ul (1.5-7.7); Eosinophil % 0.8 %; Hematocrit 26 % (42-52); Hemoglobin 8.3 g/dL (14.0-18.0); Lymphocyte % 10.7 %; Mean Corpuscular HGB Conc 31 g/dL (31-36); Mean Corpuscular Hemoglobin 33 pg (27-31); Mean Corpuscular Volume 104 fL (80-94); Mean Platelet Volume 9.6 fL (7.4-10.4); Nucleated Red Blood Cells % 0.1; Platelet Count 136 10^3/uL (150-450); Red Blood Count 2.55 10^6 /uL (4.18-5.48); Red Cell Distribution Width 18 % (10-15); White Blood Count 11.1 10^3/uL (3.5-10.8)
[2020-10-16 06:11] LABS: BUN/Creatinine Ratio 36.6 (8-20); Calcium 10.3 mg/dL (8.6-10.3); EGFR African American 32.8 (>60); EGFR Non-African American 27.1 (>60); Potassium 4.2 mmol/L (3.5-5.0)
[2020-10-16] MEDS: SPIRIVA Respimat (tiotropium) 2.5 mcg/inh Inhaler INH SCH (07:33)
[2020-10-16 07:40] LABS: INR 8.55 (0.82-1.09)
[2020-10-16] MEDS: Bumetanide IV 0.25 MG/ML 4 ml VIAL (1 mg) SLOW PUSH SCH (09:03)
[2020-10-16] MEDS: Docusate LIQ 100 MG/10 ML UDC PO SCH (09:30)
[2020-10-16] MEDS ORDERED: Phytonadione IV (Adult) 5 MG in NS 0.9% 50 ML 50 ML IV ONE (09:45)
[2020-10-16] MEDS: ZOSYN 3.375 GM Q12H per EXTENDED INFUSION IV SCH ×2 (10:51→20:44)
[2020-10-16] MEDS ORDERED: Warfarin - No Order Today **NOTE FOLLOW UP ONE (13:00)
[2020-10-16] MEDS: D5W 1000 ml BAG 1,000 ML IV SCH (13:57)
[2020-10-16] MEDS: Warfarin DAILY REMINDER **NOTE FOLLOW UP SCH (18:18)
[2020-10-16] MEDS: Senna TAB 8.6 mg TAB PO SCH (20:32)
[2020-10-17] MEDS ORDERED: Metoprolol Tartrate 5 mg VIAL 5 ml VIAL (1 mg/ml) ONE (00:12)
[2020-10-17] MEDS ORDERED: Metoprolol Tartrate 5 mg VIAL 5 ml VIAL (1 mg/ml) IV PRN (00:16)
[2020-10-17 00:52] LABS: ABS Basophils 0.1 10^3/ul (0-0.2); ABS Eosinophils 0.1 10^3/ul (0-0.6); ABS Lymphocytes 1.3 10^3/ul (1.0-4.8); ABS Monocytes 0.8 10^3/ul (0-0.8); ABS Neutrophils 7.4 10^3/ul (1.5-7.7); Eosinophil % 1.4 %; Hematocrit 28 % (42-52); Lymphocyte % 13.2 %; Mean Corpuscular HGB Conc 32 g/dL (31-36); Mean Corpuscular Hemoglobin 33 pg (27-31); Mean Corpuscular Volume 102 fL (80-94); Mean Platelet Volume 10.2 fL (7.4-10.4); Nucleated Red Blood Cells % 0.1; Platelet Count 151 10^3/uL (150-450); Red Blood Count 2.72 10^6 /uL (4.18-5.48); Red Cell Distribution Width 18 % (10-15); White Blood Count 9.7 10^3/uL (3.5-10.8)
[2020-10-17 01:00] LABS: BUN/Creatinine Ratio 39.1 (8-20); Calcium 9.9 mg/dL (8.6-10.3); EGFR African American 33.6 (>60); EGFR Non-African American 27.8 (>60); Magnesium 2.3 mg/dL (1.9-2.7); Potassium 3.8 mmol/L (3.5-5.0)
[2020-10-17 01:11] LABS: INR 1.73 (0.82-1.09)
[2020-10-17] MEDS: Linezolid 600 MG IVPREMIX(*) 600 MG/300 ML BAG IVPB SCH ×2 (05:40→17:26)
[2020-10-17] MEDS: Levothyroxine 100 MCG/5 ML VIAL IV SCH (05:40)
[2020-10-17] MEDS: SPIRIVA Respimat (tiotropium) 2.5 mcg/inh Inhaler INH SCH (08:59)
[2020-10-17] MEDS ORDERED: Metoprolol Tartrate 5 mg VIAL 5 ml VIAL (1 mg/ml) IV ONE (09:00)
[2020-10-17] MEDS: Docusate LIQ 100 MG/10 ML UDC PO SCH (10:04)
[2020-10-17] MEDS ORDERED: Perflutren Lipid Microsphere 3 ML VIAL ONE (10:06)
[2020-10-17] MEDS: ZOSYN 3.375 GM Q12H per EXTENDED INFUSION IV SCH ×2 (10:25→23:15)
[2020-10-17 12:32] LABS: INR 1.36 (0.82-1.09)
[2020-10-17] MEDS: D5W 1000 ml BAG 1,000 ML IV SCH ×2 (13:39→23:17)
[2020-10-17] MEDS: Warfarin DAILY REMINDER **NOTE FOLLOW UP SCH (17:21)
[2020-10-17] MEDS ORDERED: Warfarin - No Order Today **NOTE FOLLOW UP SCH (17:23)
[2020-10-17] MEDS ORDERED: Heparin DRIP 25,000 UNITS BAG 25,000 UNITS/500 ML BAG IV SCH (17:30)
[2020-10-17] MEDS ORDERED: Heparin 5000 UNITS/ML 1 mL VIAL IV SCH (18:00)
[2020-10-17 18:17] LABS: ABS Eosinophils 0.2 10^3/ul (0-0.6); ABS Lymphocytes 1.2 10^3/ul (1.0-4.8); ABS Monocytes 0.8 10^3/ul (0-0.8); ABS Neutrophils 7.6 10^3/ul (1.5-7.7); Eosinophil % 1.7 %; Hematocrit 27 % (42-52); Hemoglobin 8.7 g/dL (14.0-18.0); Lymphocyte % 12.1 %; Mean Corpuscular HGB Conc 32 g/dL (31-36); Mean Corpuscular Hemoglobin 33 pg (27-31); Mean Corpuscular Volume 105 fL (80-94); Mean Platelet Volume 9.6 fL (7.4-10.4); Nucleated Red Blood Cells % 0.1; Platelet Count 144 10^3/uL (150-450); Red Cell Distribution Width 18 % (10-15); White Blood Count 9.9 10^3/uL (3.5-10.8)
[2020-10-17 18:40] LABS: EGFR Non-African American 24.8 (>60)
[2020-10-17] MEDS: Senna TAB 8.6 mg TAB PO SCH (23:57)
[2020-10-18] MEDS ORDERED: NS 0.9% 250 ml 250 ML IV ONE (04:16)
[2020-10-18 05:51] LABS: Hematocrit 26 % (42-52); Hemoglobin 8.2 g/dL (14.0-18.0); Mean Corpuscular HGB Conc 32 g/dL (31-36); Mean Corpuscular Hemoglobin 34 pg (27-31); Mean Corpuscular Volume 105 fL (80-94); Platelet Count 153 10^3/uL (150-450); Red Blood Count 2.46 10^6 /uL (4.18-5.48); Red Cell Distribution Width 18 % (10-15); White Blood Count 9.8 10^3/uL (3.5-10.8)
[2020-10-18 06:09] LABS: Albumin/Globulin Ratio 1.3 (1-3); BUN/Creatinine Ratio 32.7 (8-20); Calcium 9.3 mg/dL (8.6-10.3); EGFR African American 25.3 (>60); EGFR Non-African American 20.9 (>60); Globulin 2.4 g/dL (2-4); Magnesium 2.4 mg/dL (1.9-2.7); Potassium 4.3 mmol/L (3.5-5.0); Total Bilirubin 1.4 mg/dL (0.2-1.0); Total Protein 5.4 g/dL (6.4-8.9)
[2020-10-18] MEDS: Levothyroxine 100 MCG/5 ML VIAL IV SCH (06:15)
[2020-10-18] MEDS: Linezolid 600 MG IVPREMIX(*) 600 MG/300 ML BAG IVPB SCH (06:28)
[2020-10-18] MEDS: SPIRIVA Respimat (tiotropium) 2.5 mcg/inh Inhaler INH SCH (07:38)
[2020-10-18] MEDS ORDERED: Bumetanide IV 0.25 MG/ML 4 ml VIAL (1 mg) SLOW PUSH ONE (08:36)
[2020-10-18 09:00] LABS: INR 1.29 (0.82-1.09)
[2020-10-18 09:05] LABS: Activated Partial Thrombo Time 200.9 seconds (26.0-38.0)
[2020-10-18 10:40] LABS: ABS Eosinophils 0.1 10^3/ul (0-0.6); ABS Lymphocytes 1.1 10^3/ul (1.0-4.8); ABS Monocytes 0.9 10^3/ul (0-0.8); ABS Neutrophils 7.6 10^3/ul (1.5-7.7); Lymphocyte % 11.7 %; Nucleated Red Blood Cells % 0.1
[2020-10-18 13:36] VITALS: BP 107/74
[2020-10-19 12:21] LABS: Immunoglobulin A 19 mg/dL (61 - 356); Immunoglobulin G 327 mg/dL (767 - 1590); Immunoglobulin M <5 mg/dL (37 - 286)
[2020-10-20 14:12] LABS: Albumin 5 %; Albumin/Globulin Ratio 0.05 %; Gamma Globulin 91 %; Total Protein(PEP) Urine 595 mg/dL
[2020-10-20 14:12] LABS: Albumin 5 %; Albumin/Globulin Ratio 0.05; Gamma Globulin 89 %; Total Protein Concentration 471 mg/dL; Total Protein(PEP) Urine 5652 mg/24 h (<229)
[2020-10-20 15:28] LABS: Albumin 2.4 g/dL (3.4-4.7); Albumin/Globulin Ratio 1.07; Gamma Globulin 0.4 g/dL (0.6-1.6); Total Protein(PEP) 4.7 g/dL (6.3 - 7.9)
== END 2020-10-18 11:00 | disposition expired | DRG 291 ==
LOC: ED 08:30 → MEDTELE 11:45 → ICU 10-11 05:28
PROVIDERS: ADMIT Hospitalist; ATTEND Internal Medicine